=== PATIENT | female | born 1950 | race Caucasian/White ===

== ENCOUNTER 2017-12-08 08:12 | Outpatient (CLI) | payer MEDICARE, BC | END 2017-12-08 08:13 | disposition home or self-care (01) | LOC: BICMRI 08:12 | PROVIDERS: ATTEND Orthopaedic Surgery | DX: M25.531 Pain in right wrist (principal); M65.831 Other synovitis and tenosynovitis, right forearm; M77.9 Enthesopathy, unspecified ==

== ENCOUNTER 2017-12-21 09:57 | Outpatient (CLI) | payer MEDICARE, BC ==
[2017-12-21 11:50] LABS: Prothrombin Time 13.8 SEC (12.0-14.7)
[2017-12-21 12:00] LABS: #Basophils 0.1 thou/uL (0.0-0.2); #Eosinphils 0.1 thou/uL (0.0-0.7); #Lymphocytes 1.6 thou/uL (1.20-3.40); #Monocytes 0.6 thou/uL (0.11-0.59); #Neutrophils 4.9 thou/uL (1.40-6.50); %Basophils 0.8 % (0.0-1.0); %Eosinophils 1.1 % (0.0-10.0); %Lymphocytes 21.8 % (21.0-51.0); %Monocytes 7.9 % (0.0-10.0); %Neutrophils 68.4 % (42.0-75.0); Hemoglobin 12.2 g/dL (12.0-16.0); Mean Corpuscular HGB CONC 32.1 g/dL (32.0-36.0); Mean Corpuscular Hemoglobin 29.8 pg (27.0-31.0); Mean Corpuscular Volume 92.9 fl (81.0-99.0); Mean Platelet Volume 7.7 fL (7.4-10.4); Platelet Count 216 thou/uL (130-400); Red Blood Cell (RBC) Count 4.08 mill/uL (4.20-5.40); White Blood Cell (WBC) Count 7.2 thou/uL (4.8-10.8)
[2017-12-21 12:01] LABS: Anion Gap 12 mmol/L (10-20); BUN (Urea Nitrogen) 25 mg/dL (9.8-20.1); Calc. Creatinine Clearance 0 mL/min (70-130); Calcium 10.2 mg/dL (7.8-10.44); Carbon Dioxide 29 mmol/L (23-31); Chloride 103 mmol/L (98-107); Estimated GFR-MDRD 88; Glucose 98 mg/dL (80-115); Potassium 4.1 mmol/L (3.5-5.1); Sodium 140 mmol/L (136-145)
--- NOTE | 2017-12-21 13:25 | RAD ---
PA AND LATERAL CHEST X-RAY: 12/21/2017 HISTORY: Preoperative evaluation. COMPARISON: None available. FINDINGS: The cardiac silhouette and pulmonary vasculature are within normal limits. The lungs are clear. Deg enerative changes are seen in the spine. IMPRESSION: No acute cardiopulmonary process. POS: [facility]
--- NOTE | 2017-12-21 20:06 | EKG ---
Test Reason : Blood Pressure : / mmHG Vent. Rate : 055 BPM Atrial Rate : 055 BPM P-R Int : 160 ms QRS Dur : 076 ms QT Int : 462 ms P-R-T Axes : 045 040 -02 degrees QTc Int : 441 ms Sinus bradycardia Low voltage QRS Abnormal ECG When compared with ECG of 23-JAN-2017 07:07, No significant change was found Confirmed by RAMYA VELAZQUEZ, SDorys (4) on 12/21/2017 8:05:55 PM Referred By: JOSEPH Confirmed By:DR. Brit BUI MD
[2017-12-22 13:35] LABS: ANA Symphony (Qualitative) Negative (Negative); CCP IgG Antibody 0.8 EliAU/mL (<7 Negative); EliA RAS New Method **** NEW METHOD ****; Rheumatoid Factor IgA Antibody 2.8 IU/mL (<14 Negative); Rheumatoid Factor IgM Antibody Less than 0.5 IU/mL (<3.5 Negative); dsDNA IgG Antibody 1.1 IU/mL (<10 Negative)
[2017-12-23 11:22] LABS: Lyme IgG/IgM AB <0.91 ISR (0.00-0.90)
== END 2017-12-21 09:58 | disposition home or self-care (01) ==
LOC: LABBT 09:57
PROVIDERS: ATTEND Orthopaedic Surgery Hand Surgery
DX: Z01.818 Encounter for other preprocedural examination (principal); Z01.812 Encounter for preprocedural laboratory examination; M65.4 Radial styloid tenosynovitis [de Quervain]; G56.00 Carpal tunnel syndrome, unspecified upper limb
CPT/HCPCS: 71046; 80048; 83520; 85025; 85610; 85652; 86038; 86200; 86225; 86618; 93005; 93010

== ENCOUNTER 2018-01-12 05:51 | Day surgery (SDC) | payer MEDICARE, BC ==
[2017-12-21 10:19] VITALS: BMI 34.5
[2018-01-12] MEDS ORDERED: CEFAZOLIN/Water 2 GM/20 ML SYRINGE ONE (06:21)
[2018-01-12] MEDS ORDERED: Fentanyl 100 MCG/2 ML VIAL ONE (06:38)
[2018-01-12] MEDS ORDERED: Bacitracin Zinc Ointment 30 gm TUBE ONE (07:02)
[2018-01-12] MEDS ORDERED: Betamet Acet/Betamet Na Ph 30 MG/5 ML VIAL ONE (07:02)
[2018-01-12] MEDS ORDERED: Bupivacaine PF 0.5% 30 ML VIAL ONE (07:02)
[2018-01-12] MEDS ORDERED: Ondansetron HCl/PF 4 MG/2 ML Vial ONE ×2 (08:12→14:33)
[2018-01-12] MEDS ORDERED: Ketorolac Tromethamine 30 MG/ML VIAL ONE (09:07)
[2018-01-12] MEDS ORDERED: Dexamethasone 20 MG/5 ML VIAL ONE (14:33)
[2018-01-12] MEDS ORDERED: PROPOFOL 200 MG/20 ML VIAL ONE (14:33)
[2018-01-12] MEDS ORDERED: Lidocaine 1% PF 5 ML VIAL ONE (14:33)
[2018-01-12] MEDS ORDERED: ePHEDrine/0.9% NaCl/PF SYRINGE 50 mg/10 ml ONE (14:33)
--- NOTE | 2018-01-13 10:14 | OP ---
PREOPERATIVE DIAGNOSES: Right carpal tunnel syndrome and right de Quervain's. FINDINGS: 1. A very tight transverse carpal ligament, the median nerve actually pulled palmarly into the trans verse carpal ligament. 2. A very tight first dorsal compartment with 2 large tendons and no evidence of multistrand abducto r or extensor. PROCEDURE PERFORMED: 1. Carpal tunnel release, right. 2. A first dorsal compartment release/tenosynovectomy first dorsal compartment, right. TOURNIQUET TIME: Total 21 minutes. ANESTHESIA: Valarie, general LMA technique augmented by 10 mL of 0.5% Marcaine block, 5 mL [facility] STUDENT IN ROOM: [facility] and [facility]. COMPLICATIONS: None. DESCRIPTION OF PROCEDURE: After successful general LMA technique, the limb prepped and draped. The patient had time out done appropriately to include the fact that she had beta blossom on board. Then , we identified the sites and matched the consent, exsanguinated the limb after prep and drape and in flated tourniquet to 250 mmHg pressure. The ulnar incision zigzag over the palmar aspect of first do rsal compartment where she had some thickening. We also extended her incision over the carpal tunnel by 4 mm proximally. The first post-carpal tunnel carried through the skin, we used old incision exc ept extended it proximally and distally about 2 mm each. Carried through the skin, subcutaneous tiss ue, and then carefully dissected under magnification, because we were concerned the median never migh t be adherent to what was a re-grown transcarpal ligament. Then, once we released the initial ligame nt, we could see that the nerve was adherent and it was pulled ulnarly by approximately 5-6 mm, so we gently the nerve from the underlying portion of the transcarpal ligament, released the lig ament complete and visualized the nerve protecting all branches. There is no tenosynovitis. Then, t he removed portion of the transcarpal ligament comprising 3 mm wide and 1 cm long, that was adherent to the nerve to try to prevent recurrence. We then made the zigzag incision on first dorsal compartment, carried through skin and subcutaneous t issues, both branches of superficial radial nerve protected it. Then, we saw a small degenerative ga nglion being developed in the thickest part of the extensor retinaculum, released this here and then removed the 2-3 mm area of retinaculum on the dorsal side, protecting the volar side to prevent sublu xation. We then freed the entire tendon, a small amount of tenosynovitis resected, but did not see a separate extensor or abductor tendon division. Placed Celestone into each wound, 2.5 mL each by drip technique and then released the tourniquet. We waited 3 minutes to obtain hemostasis, and then closed each wound with interrupted 4-0 nylon in emily ress pattern. The patient left the operating room without evidence of anesthetic complication with b ulky dressing.
== END 2018-01-12 11:30 | disposition home or self-care (01) ==
LOC: SDC 05:51
PROVIDERS: ATTEND Orthopaedic Surgery Hand Surgery
PROC: 01N50ZZ Release Median Nerve, Open Approach (ICD-10-PCS; principal; 2018-01-12)
PROC: 0L870ZZ Division of Right Hand Tendon, Open Approach (ICD-10-PCS; 2018-01-12)
DX: G56.01 Carpal tunnel syndrome, right upper limb (principal); M77.8 Other enthesopathies, not elsewhere classified; M67.431 Ganglion, right wrist; M65.9 Synovitis and tenosynovitis, unspecified; Z88.5 Allergy status to narcotic agent; Z79.899 Other long term (current) drug therapy
CPT/HCPCS: 96374; J0702; J1100; J1885; J2001; J2405; J2704; J3010; S0020

== ENCOUNTER 2018-02-04 10:51 | Outpatient (CLI) | payer MEDICARE, BC ==
[2018-02-04 12:01] LABS: Mean Corpuscular HGB CONC 32.9 g/dL (32.0-36.0); Mean Corpuscular Hemoglobin 30.8 pg (27.0-31.0); Mean Corpuscular Volume 93.5 fl (81.0-99.0); Mean Platelet Volume 7.5 fL (7.4-10.4); Platelet Count 249 thou/uL (130-400); RBC Distribution Width 12.6 % (11.5-14.5); Red Blood Cell (RBC) Count 4.22 mill/uL (4.20-5.40)
[2018-02-04 12:09] LABS: PTT 26.4 SEC (22.9-36.1); Prothrombin Time 13.7 SEC (12.0-14.7)
[2018-02-04 12:23] LABS: ALT (SGPT) 14 U/L (8-55); AST (SGOT) 17 U/L (5-34); Albumin 4.2 g/dL (3.4-4.8); Alkaline Phosphatase 74 U/L (40-150); Anion Gap 7 mmol/L (10-20); BUN (Urea Nitrogen) 27 mg/dL (9.8-20.1); Bilirubin, Total 0.5 mg/dL (0.2-1.2); Calc. Creatinine Clearance 0 mL/min (70-130); Carbon Dioxide 28 mmol/L (23-31); Chloride 104 mmol/L (98-107); Estimated GFR-MDRD 87; Globulin 3.1 g/dL (2.4-3.5); Glucose 82 mg/dL (80-115); Potassium 4.1 mmol/L (3.5-5.1); Protein, Total 7.3 g/dL (6.0-8.3); Sodium 135 mmol/L (136-145)
--- NOTE | 2018-02-04 12:35 | RAD ---
CHEST PA AND LATERAL: History: 67-year-old female for preoperative evaluation. Comparison: 12-21-17 FINDINGS: Heart size is normal. The lungs are clear. No pneumonia, edema, or pleural effusion. IMPRESSION: No acute intrathoracic disease. Stable from prior study. POS: OFF
--- NOTE | 2018-02-05 07:23 | EKG ---
Test Reason : Blood Pressure : / mmHG Vent. Rate : 057 BPM Atrial Rate : 057 BPM P-R Int : 154 ms QRS Dur : 076 ms QT Int : 454 ms P-R-T Axes : 064 035 -02 degrees QTc Int : 441 ms Sinus bradycardia Nonspecific ST-T changes Poor anterior R wave progression When compared with ECG of 21-DEC-2017 10:15, No significant change was found Confirmed by DR. Musa GARCIA (3) on 02/05/2018 7:23:16 AM Referred By: YANET Confirmed By:DR. Musa GARCIA
== END 2018-02-04 10:52 | disposition home or self-care (01) ==
LOC: LABBT 10:51
PROVIDERS: ATTEND Internal Medicine Cardiovascular Disease
DX: Z01.818 Encounter for other preprocedural examination (principal); I35.0 Nonrheumatic aortic (valve) stenosis
CPT/HCPCS: 71046; 80053; 85027; 85610; 85730; 93005; 93010

== ENCOUNTER 2018-02-10 05:57 | Day surgery (SDC) | payer MEDICARE, BC ==
[2018-02-10] MEDS ORDERED: Heparin 10,000 UNITS/1 ML VIAL ONE (06:34)
[2018-02-10] MEDS ORDERED: Lidocaine 1% (PF) 30 ML VIAL ONE (06:35)
[2018-02-10] MEDS ORDERED: Fentanyl 100 MCG/2 ML VIAL ONE (07:05)
[2018-02-10] MEDS ORDERED: Midazolam HCl 2 mg/2 ml Vial ONE (07:05)
[2018-02-10] MEDS ORDERED: Protamine Sulfate 50 MG/5 ML VIAL ONE (07:33)
[2018-02-10] MEDS ORDERED: Sodium Chloride 0.9% 1,000 ML IV SCH (08:38)
[2018-02-10] MEDS ORDERED: traMADol HCl 50 MG TAB PO PRN (08:38)
[2018-02-10] MEDS ORDERED: Acetaminophen/Codeine 30-300mg Tablet PO PRN ×2 (08:38)
[2018-02-10] MEDS ORDERED: Nitroglycerin 0.4 MG TAB (25 Tab Bottle) SL PRN (08:38)
[2018-02-10] MEDS ORDERED: traMADol HCl 50 MG TAB ONE ×2 (08:41→08:44)
[2018-02-10] MEDS ORDERED: Iopamidol 370 76% 100 ML VIAL ONE (12:32)
[2018-02-10] MEDS ORDERED: Iopamidol 370 76% 50 ML VIAL FS ONE (12:32)
== END 2018-02-10 14:46 | disposition home or self-care (01) ==
LOC: CCL 05:57
PROVIDERS: ATTEND Internal Medicine Cardiovascular Disease
PROC: 4A023N8 Measurement of Cardiac Sampling and Pressure, Bilateral, Percutaneous Approach (ICD-10-PCS; principal; 2018-02-10)
PROC: B2111ZZ Fluoroscopy of Multiple Coronary Arteries using Low Osmolar Contrast (ICD-10-PCS; 2018-02-10)
PROC: B2151ZZ Fluoroscopy of Left Heart using Low Osmolar Contrast (ICD-10-PCS; 2018-02-10)
DX: I35.0 Nonrheumatic aortic (valve) stenosis (principal); I10 Essential (primary) hypertension; E78.00 Pure hypercholesterolemia, unspecified; E11.9 Type 2 diabetes mellitus without complications; E03.9 Hypothyroidism, unspecified; E66.01 Morbid (severe) obesity due to excess calories; Z68.33 Body mass index [BMI] 33.0-33.9, adult; Z79.899 Other long term (current) drug therapy; Z88.5 Allergy status to narcotic agent
CPT/HCPCS: 85347; 93460; 93567; C1769; J1644; J2001; J2250; J2720; J3010; J7050

== ENCOUNTER 2018-02-19 07:50 | Outpatient (CLI) | payer MEDICARE, BC ==
[2018-02-19 08:38] LABS: Estimated GFR-MDRD - POC Greater than 90
--- NOTE | 2018-02-19 10:21 | CT ---
CT ANGIOGRAM OF THE CHEST WITH IV CONTRAST AND 3D POSTPROCESSING: HISTORY: Aortic valve disorder. Preop study for heart valve replacement. The thoracic aorta measurements are as follows: Aortic annulus: 2.1 cm. Aortic sinus with Valsalva: 2.8 cm. Sinotubular junction: 2.4 cm. Mid ascending aorta: 2.5 cm. High ascending aorta: 2.5 cm. These above mentioned measurements are on the coronal reconstruction images. The ascending thoracic aorta measures 2.8 cm in AP dimension and the descending thoracic aorta 2.3 cm in AP dimension on the axial views at the level of the pulmonary arteries. No aneurysmal dilatation of the thoracic aorta is seen. No intimal flap is noted to suggest aortic d issection. No pleural or pericardial effusions are identified. The pulmonary arteries re well opacified without filling defects to assess pulmonary embolism. No pneumothoraces, lobar consolidation, or lung ambar s/pulmonary nodules are identified. There are degenerative changes in the spine. Upper abdominal tomograms demonstrate a 1 cm hyperenhancing focus in the left lobe of the liver, whic h is a nonspecific finding and may be a flash-filling hemangioma or hypervascular neoplasm (primary o r secondary). IMPRESSION: 1. No evidence of thoracic aortic aneurysm or dissection. 2. Liver lesion as above. POS: [facility]
[2018-02-19] MEDS ORDERED: Iopamidol 370 76% 100 ML VIAL ONE (11:23)
== END 2018-02-19 07:51 | disposition home or self-care (01) ==
LOC: CT 07:50
PROVIDERS: ATTEND Thoracic Surgery (Cardiothoracic Vascular Surgery)
DX: I35.9 Nonrheumatic aortic valve disorder, unspecified (principal); K76.9 Liver disease, unspecified
CPT/HCPCS: 71275; 82565

== ENCOUNTER 2018-03-22 08:53 | Outpatient (CLI) | payer MEDICARE, BC | END 2018-03-22 08:54 | disposition home or self-care (01) | LOC: LABBT 08:53 | PROVIDERS: ATTEND Thoracic Surgery (Cardiothoracic Vascular Surgery) | DX: Z01.812 Encounter for preprocedural laboratory examination (principal); I35.0 Nonrheumatic aortic (valve) stenosis | CPT/HCPCS: 80048; 85025; 85610; 85730; 86850; 86900; 86901 ==

== ENCOUNTER 2018-03-22 09:00 | Inpatient (IN) | payer MEDICARE, BC ==
[2018-03-22 10:04] LABS: #Eosinphils 0.1 thou/uL (0.0-0.7); #Lymphocytes 1.3 thou/uL (1.20-3.40); #Monocytes 0.5 thou/uL (0.11-0.59); #Neutrophils 4.1 thou/uL (1.40-6.50); %Basophils 0.5 % (0.0-1.0); %Eosinophils 1.3 % (0.0-10.0); %Lymphocytes 21.1 % (21.0-51.0); %Monocytes 8.3 % (0.0-10.0); %Neutrophils 68.8 % (42.0-75.0); Hemoglobin 12.6 g/dL (12.0-16.0); Mean Corpuscular HGB CONC 34.6 g/dL (32.0-36.0); Mean Corpuscular Hemoglobin 32.2 pg (27.0-31.0); Mean Platelet Volume 7.6 fL (7.4-10.4); Platelet Count 194 thou/uL (130-400); RBC Distribution Width 12.5 % (11.5-14.5)
[2018-03-22 10:11] LABS: INR-International Normal Ratio 1.1; PTT 27.8 SEC (22.9-36.1)
[2018-03-22 10:30] LABS: Anion Gap 11 mmol/L (10-20); BUN (Urea Nitrogen) 19 mg/dL (9.8-20.1); Calc. Creatinine Clearance 0 mL/min (70-130); Calcium 9.9 mg/dL (7.8-10.44); Carbon Dioxide 29 mmol/L (23-31); Chloride 102 mmol/L (98-107); Estimated GFR-MDRD 84; Glucose 104 mg/dL (80-115); Potassium 4.2 mmol/L (3.5-5.1); Sodium 138 mmol/L (136-145)
--- NOTE | 2018-03-22 15:09 | CON ---
DATE OF CONSULTATION: 03/22/2018. HISTORY OF PRESENT ILLNESS: Ms. Brown is a 67-year-old woman with progressive shortness of breath w ith known aortic stenosis. Echo in 02/2018 shows an ejection fraction of 55%-60%. Peak to peak grad ient is 59 mm with a mean of 34. Catheterization was negative for any coronary artery disease. PAST MEDICAL HISTORY: 1. Aortic stenosis. 2. Hypertension. 3. Type 2 diabetes mellitus. 4. Hypercholesterolemia. 5. Obesity. 6. Hypothyroidism. PAST SURGICAL HISTORY: Carpal tunnel release. ALLERGIES: CODEINE. CURRENT MEDICATIONS: 1. Crestor 10 mg at bedtime. 2. Lisinopril/HCTZ 20/12.5 daily. 3. Hydralazine 25 mg daily. 4. Metoprolol ER 200 mg daily. 5. Levothyroxine 50 mcg daily. 6. Fluoxetine 20 mg daily. 7. Aleve 220 mg p.r.n. SOCIAL HISTORY: She does not use tobacco or alcohol. PHYSICAL EXAMINATION: GENERAL: This is a well-adjusted woman resting without chest pain or shortness of breath at rest. VITAL SIGNS: Height is 5 feet 3 inches, weight 195 pounds. Heart rate is 68, blood pressure is 142/ 60. HEENT: Sclerae nonicteric. Pupils equal, round bilaterally. NECK: Supple. She has bilateral transmitted carotid bruits. HEART: Rhythm is regular. There is a 3/6 systolic ejection murmur heard throughout the precordium. ABDOMEN: Soft and nontender. EXTREMITIES: No cyanosis, clubbing or edema. VASCULAR: She has palpable carotid, radial, femoral, and dorsalis pedis pulses bilaterally. VENOUS: There are no venous varicosities. PSYCHIATRIC: The patient is awake, alert, and oriented to person, place, and time. IMAGING: I have reviewed the CT scan of her chest and she appears to be an adequate patient for mini torie invasive aortic valve replacement. ASSESSMENT AND PLAN: Severe aortic stenosis with shortness of breath. We discussed aortic valve rep lacement and she is agreeable. She understands it. Attempts will be made to perform this through a minimally invasive right anterior thoracotomy and if not possible, we will convert to an open surgery . Risks, benefits, and options have been outlined.
[2018-03-23] MEDS ORDERED: Fentanyl 100 MCG/2 ML VIAL ONE (06:00)
[2018-03-23] MEDS ORDERED: Vecuronium 10 MG VIAL ONE ×2 (06:01→13:29)
[2018-03-23] MEDS ORDERED: Midazolam HCl 5 mg/5 ml Vial ONE (06:01)
[2018-03-23] MEDS ORDERED: Dexmedetomidine 200 MCG/2 ML VIAL ONE (06:01)
[2018-03-23] MEDS ORDERED: Heparin 10,000 UNITS/1 ML VIAL 30,000 UNITS in Sodium Chloride 0.9% 1,000 ML FS SCH (06:15)
[2018-03-23] MEDS ORDERED: CEFAZOLIN/Water 2 GM/20 ML SYRINGE ONE (06:23)
[2018-03-23] MEDS ORDERED: Vancomycin HCl 1.5 GM in Sodium Chloride 0.9% 250 ML 300 ML IVPB SCH (06:30)
[2018-03-23] MEDS ORDERED: Albumin 5% 500 ML ONE ×2 (06:52→10:18)
[2018-03-23] MEDS ORDERED: Iothalamate Meglumine 60% 50 ML VIAL FS ONE (07:23)
[2018-03-23] MEDS ORDERED: PHENYLEPHRINE-NS 100 MCG/ML 10 ML SYRINGE ONE ×2 (09:42→13:29)
[2018-03-23] MEDS ORDERED: Insulin Regular 300 UNITS/3 ML VIAL ONE (10:15)
[2018-03-23] MEDS ORDERED: Bupivacaine HCl 0.5%/Epinephrine 1:200,000/PF 30 ml Vial ONE (11:48)
[2018-03-23] MEDS ORDERED: Hetastarch 6% 500 ML 500 ML IVPB PRN (12:22)
[2018-03-23] MEDS ORDERED: hydrALAZINE 20 MG/ML VIAL SLOW IVP PRN (12:22)
[2018-03-23] MEDS ORDERED: Phenylephrine 10 MG/NS 250 ML 250 ML IVPB PRN (12:22)
[2018-03-23] MEDS ORDERED: Fentanyl 100 MCG/2 ML VIAL SLOW IVP PRN (12:22)
[2018-03-23] MEDS ORDERED: Nitroglycerin 50 MG/250 ML BOT 250 ML IVPB PRN (12:22)
[2018-03-23] MEDS ORDERED: Mag-Al 1200 mg/1200 mg/30 ML UDCUP PO PRN (12:22)
[2018-03-23] MEDS ORDERED: Guaifenesin DM 100-10/5 ML UDCUP PO PRN (12:22)
[2018-03-23] MEDS ORDERED: Magnesium 2 GM/NS 0.9% 100 ML 2 GM in Premix Bag 1 BAG IVPB SCH (12:22)
[2018-03-23] MEDS ORDERED: Bisacodyl 5 MG TAB PO PRN (12:22)
[2018-03-23] MEDS ORDERED: Bisacodyl 10 MG SUPP PR PRN (12:22)
[2018-03-23] MEDS ORDERED: DOPamine 400 MG/D5W 250 ML 250 ML IVPB PRN (12:22)
[2018-03-23] MEDS ORDERED: Acetaminophen 325 MG TAB PO PRN (12:22)
[2018-03-23] MEDS ORDERED: traMADol HCl 50 MG TAB PO PRN ×2 (12:22)
[2018-03-23] MEDS ORDERED: Promethazine HCl 25 MG/ML VIAL IM PRN (12:22)
--- NOTE | 2018-03-23 12:41 | OP ---
DATE OF PROCEDURE: 03/23/2018 PREOPERATIVE DIAGNOSIS: Aortic stenosis. POSTOPERATIVE DIAGNOSIS: Aortic stenosis. PROCEDURE: Aortic valve replacement utilizing a minimally invasive approach with a #19 Intuity bioprosthetic valve. SURGEON: Dr. Forest Escamilla, Dr. Denny Byrd, Dr. Reyes Ramirez. DRAINS: A 24-Bengali chest tube x1. PUMP TIME: 88 min CROSS CLAMP TIME: 62 min CHILD CAREGIVER : Tiesha Zhao DRIPS: None. TRANSFUSIONS: None. ANESTHESIA: General endotracheal -- Dr. Radha Cosme. DESCRIPTION OF PROCEDURE: After consent was obtained, the patient was brought to the operating room, placed in supine position on the operating room table. Appropriate anesthetic monitor was placed and general endotracheal anesthesia induced. Chest, abdomen, and legs were prepped and draped in usual sterile fashion. The left groin was exposed through a transverse incision for cannulation of the femoral artery and vein. 4-0 Prolene pursestring sutures were placed in the common femoral artery and vein for cannulation. A right anterior thoracotomy was performed for approximately 5 cm length overlying the second innerspace. The pectoralis muscle fibers were split. The second interspace was entered. The right internal mammary artery and vein were divided between clips. The third rib was divided at its costal junction. The Leonel retractor was placed and opened. The minimally invasive retractor was then placed. A 24 fr Trace drain was then placed through the right anterior chest wall for CO2 infusion which was begun. Pericardium was opened vertically exposing the aorta. At this point, the patient was systemically heparinized. Arterial and venous cannulation was performed through the femoral artery and vein utilizing fluoroscopic guidance. After the cannulas were positioned retrograde prime was performed. The patient was placed on cardiopulmonary bypass. A good right-sided cardiac decompression was obtained. Through the right superior pulmonary vein, a sump drain was placed. This was secured with a pursestring of 4-0 Prolene. Aortic cross- clamp was applied and antegrade sanguinous cardioplegic arrest obtained. One liter of antegrade cold Delnido cardioplegia was given. A good arrest was obtained. A transverse aortotomy was performed and extended down towards the noncoronary cusp. Valve was inspected. The aortic valve was a three leaflet valve that was heavily calcified. Leaflets were debrided. Annulus was decalcified. Valve measured to be a #19 Intuity. Sutures were placed at the aidee of each cusp. Valve was washed, brought to the operative field and sutures were passed through the sewing ring. The valve was seated and secured with Rumel tourniquets. The balloon was inflated 4.5 mmHg for 10 seconds. Balloon was deflated and one inflation device removed. Core knots were used to secure the valve sutures in place. Valve was inspected. It was seated nicely within the annulus. There was no visible cuff above the valve and the aorta. All three leaflets were freely mobile. The aortotomy was then closed in a dual layer running fashion. De-airing maneuvers were performed both through the left ventricular sump drain and the root vent. BioGlue was placed on the suture line. Right ventricular pacing wire was placed, brought to the skin along with the chest tube. Aortic cross- clamp was removed with the patient in Trendelenburg position. Hemostasis was vigorously ensured. After adequate de-airing by ERAN, the root vent was removed and its pursestring sutures secured. The aortic sump drain was removed and its pursestring sutures secured in the superior pulmonary vein. The patient was warmed and weaned from cardiopulmonary bypass. After resumption of sinus rhythm, good hemodynamics, and temperature greater than 36.5, bypass was discontinued. Protamine was administered. Decannulation was performed. Both the artery and the vein were repaired primarily with a two layer running 5-0 Prolene suture. After protamine had been instituted and adequate hemostasis obtained, the groin wound was copiously irrigated, closed in layers. Dermabond applied to the skin. The third rib was reapproximated with a single 0 Vicryl suture. The pectoralis was reapproximated with running 0 Vicryl suture. Wound was irrigated and closed in multiple layers. Needle, sponge, and instrument counts were all reported correct at the end of the procedure. The patient tolerated the procedure well and was transferred to the intensive care unit in stable condition. JUAN
[2018-03-23 12:56] LABS: #Eosinphils 0.1 thou/uL (0.0-0.7); #Lymphocytes 1.1 thou/uL (1.20-3.40); #Monocytes 0.7 thou/uL (0.11-0.59); #Neutrophils 8.9 thou/uL (1.40-6.50); %Basophils 0.2 % (0.0-1.0); %Eosinophils 0.5 % (0.0-10.0); %Lymphocytes 10.1 % (21.0-51.0); %Monocytes 6.7 % (0.0-10.0); %Neutrophils 82.5 % (42.0-75.0); Mean Corpuscular HGB CONC 34.1 g/dL (32.0-36.0); Mean Corpuscular Hemoglobin 31.9 pg (27.0-31.0); Mean Corpuscular Volume 93.4 fl (81.0-99.0); Mean Platelet Volume 7.4 fL (7.4-10.4); Platelet Count 102 thou/uL (130-400); RBC Distribution Width 12.5 % (11.5-14.5); Red Blood Cell (RBC) Count 3.14 mill/uL (4.20-5.40); White Blood Cell (WBC) Count 10.8 thou/uL (4.8-10.8)
[2018-03-23 13:01] LABS: INR-International Normal Ratio 1.5; PTT 38.1 SEC (22.9-36.1); Prothrombin Time 18.8 SEC (12.0-14.7)
[2018-03-23] MEDS: D5 1/2 NS w/20 mEq KCL 1,000 ML IV SCH (13:02)
[2018-03-23] MEDS ORDERED: Dextrose 5% in Water 1,000 ML IV PRN (13:04)
[2018-03-23] MEDS ORDERED: Dextrose 50% Abboject 50 ML SYRINGE SLOW IVP PRN (13:04)
[2018-03-23 13:20] LABS: Anion Gap 11 mmol/L (10-20); BUN (Urea Nitrogen) 12 mg/dL (9.8-20.1); Calc. Creatinine Clearance 137 mL/min (70-130); Carbon Dioxide 21 mmol/L (23-31); Chloride 112 mmol/L (98-107); Estimated GFR-MDRD Greater than 90; Glucose 119 mg/dL (80-115); Potassium 3.8 mmol/L (3.5-5.1); Sodium 140 mmol/L (136-145)
[2018-03-23] MEDS: Insulin Regular 300 UNITS/3 ML VIAL SC PRN ×4 (13:23→23:30)
[2018-03-23 13:27] LABS: Base Excess (BEa) -1.3 mEq/L (-2.0 to +3.0); CO2 Tension 38.1 mmHg (35.0-45.0); Hemoglobin (Hb) 10.7 g/dL (12.0-16.0); O2 Tension (PaO2) 77.3 mmHg (> 80.0)
[2018-03-23 13:28] LABS: ALV-art Gradient 231.575 (0-20); Calcium, Ionized 1.1 mmol/L (1.12-1.30); Puncture Site ALINE
[2018-03-23] MEDS ORDERED: Sodium Bicarb 50 MEQ/50 ML VIAL ONE (13:29)
[2018-03-23] MEDS ORDERED: Calcium Chloride 1 GM/10 ML Abboject SYRINGE ONE (13:29)
[2018-03-23] MEDS ORDERED: Nitroglycerin 50 MG/250 ML BOT ONE (13:29)
[2018-03-23] MEDS ORDERED: ePHEDrine/0.9% NaCl/PF SYRINGE 50 mg/10 ml ONE (13:29)
[2018-03-23] MEDS ORDERED: Heparin 30,000 units/30 ml VIAL ONE (13:29)
[2018-03-23] MEDS ORDERED: Thrombin 5000 UNITS/5 ML VIAL ONE (13:29)
[2018-03-23] MEDS ORDERED: Mannitol 12.5 GM/50 ML ONE (13:29)
[2018-03-23] MEDS ORDERED: Protamine Sulfate 250 MG/25 ML VIAL ONE (13:29)
[2018-03-23] MEDS ORDERED: Potassium Chlo 10 mEq/5 ml Syr ONE (13:29)
[2018-03-23] MEDS ORDERED: Heparin 5,000 UNITS/ML VIAL ONE (13:29)
[2018-03-23] MEDS ORDERED: Magnesium 5 GM/10 ML VIAL ONE (13:29)
[2018-03-23] MEDS ORDERED: PROPOFOL 200 MG/20 ML VIAL ONE (13:29)
[2018-03-23] MEDS ORDERED: Lidocaine 2% PF 100 mg/5 ml Syringe ONE (13:29)
[2018-03-23] MEDS ORDERED: Norepinephrine 4 MG/4 ML VIAL ONE (13:29)
--- NOTE | 2018-03-23 13:49 | RAD ---
PORTABLE AP CHEST RADIOGRAPH: Date: 03-23-18 History: Post open heart surgery. Comparison: 12-21-17 FINDINGS: A endotracheal tube is noted in place, the tip of which is difficult to visualize, but probably overl ies the level of the kelly. Right internal jugular vein central venous catheter is noted in place wi th the tip overlying the most proximal SVC. Nasogastric tube is noted in place with tip overlying the gastric fundus. Radiopaque catheter overlies the right chest. There have been interval post-surgical changes related to cardiac valve replacement. There are thin metallic densities overlying the right upper quadrant. There is mild bibasilar atelectasis. Cardiac silhouette and pulmonary vasculature are within normal limits. IMPRESSION: 1. Interval post-surgical changes related to cardiac valve replacement. 2. Lines and tubes in place as described above. The tip of the endotracheal tube is not well seen, bu t probably overlies the level of the kelly. POS: [facility]
[2018-03-23] MEDS: Potassium Chloride 20 MEQ/100 ML PREMIX BAG IVPB PRN (14:10)
[2018-03-23 14:21] VITALS: BMI 34.7
[2018-03-23] MEDS: Fentanyl 100 MCG/2 ML VIAL SLOW IVP PRN ×2 (15:37→18:29)
[2018-03-23] MEDS: CEFAZOLIN/Water 2 GM/20 ML SYRINGE SLOW IVP SCH ×2 (16:17→22:24)
[2018-03-23 16:48] LABS: Actual Bicarbonate (HCO3a) 22.1 mEq/L (22-28); CO2 Tension 39.9 mmHg (35.0-45.0); O2 Tension (PaO2) 137.2 mmHg (> 80.0); pH, Arterial 7.36 (7.35-7.45)
[2018-03-23] MEDS: Ketorolac Tromethamine 30 MG/ML VIAL IVP SCH ×2 (16:48→23:08)
[2018-03-23 16:49] LABS: ALV-art Gradient 98.125 (0-20); Base Excess (BEa) -3.1 mEq/L (-2.0 to +3.0); Calcium, Ionized 1.1 mmol/L (1.12-1.30); Puncture Site ALINE
[2018-03-23 18:28] LABS: Hemoglobin 10.3 g/dL (12.0-16.0)
[2018-03-23 18:45] LABS: Potassium 4.1 mmol/L (3.5-5.1)
[2018-03-23] MEDS: Ondansetron HCl/PF 4 MG/2 ML Vial IVP PRN (19:52)
[2018-03-23] MEDS: Vancomycin HCl 1.5 GM in Premix Bag 1 BAG IVPB SCH (20:18)
[2018-03-23] MEDS ORDERED: Famotidine/PF 20 mg/2ml Vial SLOW IVP SCH (21:00)
[2018-03-24 03:33] LABS: #Lymphocytes 0.6 thou/uL (1.20-3.40); #Monocytes 0.7 thou/uL (0.11-0.59); #Neutrophils 8.6 thou/uL (1.40-6.50); %Eosinophils 0.1 % (0.0-10.0); %Lymphocytes 6.2 % (21.0-51.0); %Monocytes 6.8 % (0.0-10.0); %Neutrophils 86.9 % (42.0-75.0); Hemoglobin 8.6 g/dL (12.0-16.0); Mean Corpuscular HGB CONC 34.7 g/dL (32.0-36.0); Mean Corpuscular Hemoglobin 32.2 pg (27.0-31.0); Mean Corpuscular Volume 92.9 fL (78.0-98.0); Mean Platelet Volume 7.3 fL (7.4-10.4); Platelet Count 92 thou/uL (130-400); RBC Distribution Width 12.5 % (11.5-14.5); Red Blood Cell (RBC) Count 2.66 mill/uL (4.20-5.40); White Blood Cell (WBC) Count 9.9 thou/uL (4.8-10.8)
[2018-03-24 03:54] LABS: Anion Gap 9 mmol/L (10-20); BUN (Urea Nitrogen) 16 mg/dL (9.8-20.1); Calc. Creatinine Clearance 129 mL/min (70-130); Calcium 7.9 mg/dL (7.8-10.44); Carbon Dioxide 24 mmol/L (23-31); Chloride 110 mmol/L (98-107); Estimated GFR-MDRD Greater than 90; Glucose 137 mg/dL (80-115); Sodium 139 mmol/L (136-145)
[2018-03-24] MEDS: Insulin Regular 300 UNITS/3 ML VIAL SC PRN (04:01)
[2018-03-24] MEDS: Potassium Chloride 20 MEQ/100 ML PREMIX BAG IVPB PRN (04:01)
[2018-03-24] MEDS: Ketorolac Tromethamine 30 MG/ML VIAL IVP SCH ×4 (05:03→22:20)
[2018-03-24] MEDS: CEFAZOLIN/Water 2 GM/20 ML SYRINGE SLOW IVP SCH (06:23)
[2018-03-24] MEDS: Ondansetron HCl/PF 4 MG/2 ML Vial IVP PRN (08:12)
[2018-03-24] MEDS: Magnesium 2 GM/NS 0.9% 100 ML 2 GM in Premix Bag 1 BAG IVPB SCH (08:12)
[2018-03-24] MEDS ORDERED: Aspirin 325 MG TAB PO SCH (09:00)
[2018-03-24] MEDS ORDERED: Vancomycin HCl 1.5 GM in Sodium Chloride 0.9% 250 ML 300 ML IVPB SCH (09:15)
[2018-03-24] MEDS: Vancomycin HCl 1.5 GM in Premix Bag 1 BAG IVPB SCH (09:16)
--- NOTE | 2018-03-24 09:32 | RAD ---
SINGLE VIEW OF THE CHEST: Comparison: 03-23-18 History: Status post open heart surgery. FINDINGS: Single view of the chest shows a normal sized cardiomediastinal silhouette. The endotracheal tube and NG tube have been removed. A stent is seen in the region of the aortic valve. There is no evidence o f consolidation or mass. There may be a small left pleural effusion. IMPRESSION: Stable exam status post extubation. POS: [facility]
[2018-03-24] MEDS: D5 1/2 NS w/20 mEq KCL 1,000 ML IV SCH ×2 (12:43→17:14)
[2018-03-24] MEDS: Rosuvastatin 10 MG TAB PO SCH (22:17)
[2018-03-25] MEDS: Levothyroxine Sodium 50 MCG TAB PO SCH (05:13)
[2018-03-25] MEDS: Ketorolac Tromethamine 30 MG/ML VIAL IVP SCH ×3 (05:13→16:55)
[2018-03-25 05:31] LABS: #Lymphocytes 0.7 thou/uL (1.20-3.40); #Monocytes 0.7 thou/uL (0.11-0.59); #Neutrophils 6.6 thou/uL (1.40-6.50); %Basophils 0.2 % (0.0-1.0); %Eosinophils 0.3 % (0.0-10.0); %Lymphocytes 8.6 % (21.0-51.0); %Monocytes 8.8 % (0.0-10.0); %Neutrophils 82.1 % (42.0-75.0); Hemoglobin 7.7 g/dL (12.0-16.0); Mean Corpuscular HGB CONC 33.2 g/dL (32.0-36.0); Mean Corpuscular Hemoglobin 32.2 pg (27.0-31.0); Mean Corpuscular Volume 97.1 fL (78.0-98.0); Mean Platelet Volume 7.9 fL (7.4-10.4); Platelet Count 79 thou/uL (130-400); RBC Distribution Width 12.6 % (11.5-14.5); Red Blood Cell (RBC) Count 2.38 mill/uL (4.20-5.40)
[2018-03-25 05:35] LABS: Anion Gap 10 mmol/L (10-20); BUN (Urea Nitrogen) 23 mg/dL (9.8-20.1); Calc. Creatinine Clearance 106 mL/min (70-130); Calcium 8.4 mg/dL (7.8-10.44); Carbon Dioxide 23 mmol/L (23-31); Chloride 107 mmol/L (98-107); Estimated GFR-MDRD 74; Glucose 135 mg/dL (80-115); Potassium 4.2 mmol/L (3.5-5.1); Sodium 136 mmol/L (136-145)
[2018-03-25] MEDS ORDERED: Zolpidem Tartrate 5 MG TAB PO PRN (07:11)
[2018-03-25] MEDS ORDERED: Mineral Oil ENEMA PR PRN (07:11)
[2018-03-25] MEDS ORDERED: Mag-Al 1200 mg/1200 mg/30 ML UDCUP PO PRN (07:11)
[2018-03-25] MEDS ORDERED: Milk Of Magnesia 30 ML UDCUP PO PRN (07:11)
[2018-03-25] MEDS ORDERED: Artificial Tears 18 DROP/0.9 ML EA EYE PRN (07:11)
[2018-03-25] MEDS ORDERED: diphenhydrAMINE 25 MG CAP PO PRN (07:11)
[2018-03-25] MEDS ORDERED: Bisacodyl 10 MG SUPP PR PRN (07:11)
[2018-03-25] MEDS: Aspirin 325 mg Enteric Coated Tablet PO SCH (08:55)
[2018-03-25] MEDS: Magnesium 2 GM/NS 0.9% 100 ML 2 GM in Premix Bag 1 BAG IVPB SCH (08:55)
[2018-03-25] MEDS: Furosemide 20 MG TAB PO SCH (08:55)
[2018-03-25] MEDS: FLUoxetine HCl 10 MG CAP PO SCH (08:58)
[2018-03-25] MEDS ORDERED: Levothyroxine Sodium 50 MCG TAB PO SCH (09:00)
--- NOTE | 2018-03-25 09:53 | RAD ---
CHEST 1 VIEW: Date: 03/25/18 HISTORY: Open heart surgery. COMPARISON: 03/24/18. FINDINGS: There is mild blunting bilateral costophrenic sulci. No pneumothorax. Heart valve similar. Cardiac si lhouette and mediastinal contours are unchanged. IMPRESSION: Similar examination of the chest. POS: [facility]
[2018-03-25] MEDS: Guaifenesin DM 100-10/5 ML UDCUP PO PRN ×2 (12:25→16:56)
[2018-03-25] MEDS: Bisacodyl 5 MG TAB PO PRN (20:18)
[2018-03-25] MEDS: Rosuvastatin 10 MG TAB PO SCH (20:19)
[2018-03-25] MEDS ORDERED: Rosuvastatin 10 MG TAB PO SCH (21:00)
[2018-03-26] MEDS: Ketorolac Tromethamine 30 MG/ML VIAL IVP SCH ×3 (00:11→05:38)
[2018-03-26 05:25] LABS: #Eosinphils 0.1 thou/uL (0.0-0.7); #Lymphocytes 1.1 thou/uL (1.20-3.40); #Monocytes 0.6 thou/uL (0.11-0.59); #Neutrophils 5.6 thou/uL (1.40-6.50); %Basophils 0.2 % (0.0-1.0); %Eosinophils 0.8 % (0.0-10.0); %Lymphocytes 14.6 % (21.0-51.0); %Monocytes 8.7 % (0.0-10.0); %Neutrophils 75.7 % (42.0-75.0); Hemoglobin 7.1 g/dL (12.0-16.0); Mean Corpuscular HGB CONC 33.1 g/dL (32.0-36.0); Mean Corpuscular Hemoglobin 31.9 pg (27.0-31.0); Mean Corpuscular Volume 96.3 fL (78.0-98.0); Mean Platelet Volume 7.8 fL (7.4-10.4); Platelet Count 83 thou/uL (130-400); RBC Distribution Width 12.5 % (11.5-14.5); Red Blood Cell (RBC) Count 2.21 mill/uL (4.20-5.40); White Blood Cell (WBC) Count 7.3 thou/uL (4.8-10.8)
[2018-03-26 05:27] LABS: Anion Gap 10 mmol/L (10-20); BUN (Urea Nitrogen) 25 mg/dL (9.8-20.1); Calc. Creatinine Clearance 110 mL/min (70-130); Calcium 8.4 mg/dL (7.8-10.44); Carbon Dioxide 23 mmol/L (23-31); Chloride 106 mmol/L (98-107); Estimated GFR-MDRD 78; Glucose 118 mg/dL (80-115); Potassium 4.5 mmol/L (3.5-5.1); Sodium 134 mmol/L (136-145)
[2018-03-26] MEDS: Levothyroxine Sodium 50 MCG TAB PO SCH (05:39)
[2018-03-26] MEDS ORDERED: Furosemide 40 MG/4 ML VIAL SLOW IVP SCH (07:15)
[2018-03-26] MEDS: FLUoxetine HCl 10 MG CAP PO SCH (08:02)
[2018-03-26] MEDS: Aspirin 325 mg Enteric Coated Tablet PO SCH (08:02)
[2018-03-26] MEDS: Furosemide 20 MG TAB PO SCH (08:02)
[2018-03-26] MEDS: Bisacodyl 5 MG TAB PO PRN (21:09)
[2018-03-26] MEDS: Rosuvastatin 10 MG TAB PO SCH (21:09)
[2018-03-27 05:24] LABS: #Eosinphils 0.2 thou/uL (0.0-0.7); #Lymphocytes 0.8 thou/uL (1.20-3.40); #Monocytes 0.7 thou/uL (0.11-0.59); %Basophils 0.1 % (0.0-1.0); %Eosinophils 2.6 % (0.0-10.0); %Lymphocytes 12.2 % (21.0-51.0); %Monocytes 10.2 % (0.0-10.0); %Neutrophils 74.8 % (42.0-75.0); Hemoglobin 10.2 g/dL (12.0-16.0); Mean Corpuscular HGB CONC 34.2 g/dL (32.0-36.0); Mean Corpuscular Hemoglobin 31.9 pg (27.0-31.0); Mean Corpuscular Volume 93.5 fL (78.0-98.0); Mean Platelet Volume 7.4 fL (7.4-10.4); Platelet Count 114 thou/uL (130-400); RBC Distribution Width 13.2 % (11.5-14.5); Red Blood Cell (RBC) Count 3.19 mill/uL (4.20-5.40); White Blood Cell (WBC) Count 6.7 thou/uL (4.8-10.8)
[2018-03-27] MEDS: Levothyroxine Sodium 50 MCG TAB PO SCH (05:32)
[2018-03-27 05:48] LABS: Anion Gap 12 mmol/L (10-20); BUN (Urea Nitrogen) 17 mg/dL (9.8-20.1); Calc. Creatinine Clearance 129 mL/min (70-130); Calcium 8.6 mg/dL (7.8-10.44); Carbon Dioxide 22 mmol/L (23-31); Chloride 106 mmol/L (98-107); Estimated GFR-MDRD Greater than 90; Glucose 114 mg/dL (80-115); Potassium 4.2 mmol/L (3.5-5.1); Sodium 136 mmol/L (136-145)
[2018-03-27] MEDS: FLUoxetine HCl 10 MG CAP PO SCH (08:46)
[2018-03-27] MEDS: Furosemide 20 MG TAB PO SCH (08:46)
[2018-03-27] MEDS: Aspirin 325 mg Enteric Coated Tablet PO SCH (08:46)
[2018-03-27 12:06] VITALS: TEMP 99.6
[2018-03-27 12:15] VITALS: BP 190/77
--- NOTE | 2018-03-27 20:28 | DIS ---
DATE OF ADMISSION: 03/23/2018 DATE OF DISCHARGE: 03/27/2018 PRINCIPAL DIAGNOSIS: Aortic stenosis. PROCEDURE PERFORMED: A 19 mm Intuity aortic valve replacement with minimally invasive approach. HISTORY OF PRESENT ILLNESS AND HOSPITAL COURSE: The patient is a 67-year-old woman with known aortic stenosis who has begun having progressive shortness of breath. Cardiac catheterization showed absen ce of any significant coronary disease. She underwent replacement of her aortic valve with 19 mm Int uity valve using the left groin for femoral cannulation for cardiopulmonary bypass. The right second interspace incision for access to the aortic valve. She did well postoperatively. Her hemoglobin d id drift down and she was transfused blood for hemoglobin of 7.1 while she voiced a lack of symptoms, it was noted that her blood pressure is running lower than normal after transfusion. She was able t o appreciate that she felt stronger and had better exercise tolerance. She is now being discharged h [facility] on postoperative day #4, doing well.
== END 2018-03-27 12:52 | disposition home or self-care (01) | DRG 221 ==
LOC: SURG A 03-23 05:34 → CCU 03-23 12:49 → 2NO 03-25 23:56
PROVIDERS: ADMIT Thoracic Surgery (Cardiothoracic Vascular Surgery); ATTEND Thoracic Surgery (Cardiothoracic Vascular Surgery)
PROC: 02RF08Z Replacement of Aortic Valve with Zooplastic Tissue, Open Approach (ICD-10-PCS; principal; 2018-03-23)
PROC: 5A1221Z Performance of Cardiac Output, Continuous (ICD-10-PCS; 2018-03-23)
PROC: 30233N1 Transfusion of Nonautologous Red Blood Cells into Peripheral Vein, Percutaneous Approach (ICD-10-PCS; 2018-03-26)
DX: I35.0 Nonrheumatic aortic (valve) stenosis (principal); I35.9 Nonrheumatic aortic valve disorder, unspecified; I10 Essential (primary) hypertension; E11.9 Type 2 diabetes mellitus without complications; E66.9 Obesity, unspecified; E03.9 Hypothyroidism, unspecified; E78.2 Mixed hyperlipidemia; Z68.35 Body mass index [BMI] 35.0-35.9, adult
CPT/HCPCS: 36415; 36416; 36430; 71045; 76001; 80048; 82805; 85025; 85610; 85730; 86850; 86900; 86901; 93005; 93010; 93798; 94002; 94150; A4216; J0360; J0670; J1642; J1644; J1815; J1885; J1940; J2001; J2150; J2250; J2270; J2405; J2704; J2720; J3010; J3370; J3475; J3480; J7050; P9016; P9045; Q9961; S0028

== ENCOUNTER 2018-04-11 05:54 | Inpatient (IN) | payer MEDICARE, BC ==
[2018-04-11 06:48] LABS: #Eosinphils 0.2 thou/uL (0.0-0.7); #Lymphocytes 0.9 thou/uL (1.20-3.40); #Monocytes 0.8 thou/uL (0.11-0.59); %Basophils 0.4 % (0.0-1.0); %Eosinophils 1.7 % (0.0-10.0); %Lymphocytes 8.5 % (21.0-51.0); %Neutrophils 82.4 % (42.0-75.0); Hemoglobin 12.3 g/dL (12.0-16.0); Mean Corpuscular HGB CONC 34.3 g/dL (32.0-36.0); Mean Corpuscular Hemoglobin 31.2 pg (27.0-31.0); Mean Corpuscular Volume 91.2 fL (78.0-98.0); Mean Platelet Volume 6.3 fL (7.4-10.4); Platelet Count 357 thou/uL (130-400); RBC Distribution Width 12.4 % (11.5-14.5); Red Blood Cell (RBC) Count 3.95 mill/uL (4.20-5.40); White Blood Cell (WBC) Count 10.9 thou/uL (4.8-10.8)
[2018-04-11] MEDS ORDERED: Diltiazem 125 MG/25 ML ONE (06:49)
[2018-04-11 06:56] LABS: PTT 28.5 SEC (22.9-36.1)
[2018-04-11 06:58] LABS: ALT (SGPT) 9 U/L (8-55); AST (SGOT) 15 U/L (5-34); Albumin 3.6 g/dL (3.4-4.8); Alkaline Phosphatase 91 U/L (40-150); Anion Gap 13 mmol/L (10-20); BUN (Urea Nitrogen) 15 mg/dL (9.8-20.1); Bilirubin, Total 0.8 mg/dL (0.2-1.2); Calc. Creatinine Clearance 0 mL/min (70-130); Calcium 9.8 mg/dL (7.8-10.44); Carbon Dioxide 26 mmol/L (23-31); Chloride 100 mmol/L (98-107); Estimated GFR-MDRD 88; Globulin 3.3 g/dL (2.4-3.5); Glucose 144 mg/dL (80-115); Potassium 3.8 mmol/L (3.5-5.1); Protein, Total 6.9 g/dL (6.0-8.3); Sodium 135 mmol/L (136-145)
[2018-04-11 07:00] LABS: INR-International Normal Ratio 1.1; Prothrombin Time 14.7 SEC (12.0-14.7)
[2018-04-11 07:03] LABS: CKMB 0.5 ng/mL (0-6.6); Troponin I Less than 0.010 ng/mL (< 0.028)
[2018-04-11] MEDS ORDERED: Enoxaparin Sodium 80 MG/0.8 ML SYRINGE ONE (07:04)
[2018-04-11] MEDS ORDERED: Acetaminophen 325 MG TAB PO PRN (09:53)
--- NOTE | 2018-04-11 09:53 | RAD ---
FRONTAL VIEW CHEST: COMPARISON: 03/25/18. INDICATION: Atrial fibrillation. FINDINGS: There is elevation of the right hemidiaphragm. Cardiac silhouette is enlarged. There is abnormal de nsity of the right hilum with adjacent metallic clips. Mild hazy density is seen at the inferior lef t chest. IMPRESSION: Abnormal right hilar density with adjacent metallic clips. This is a progressive radiographic appear ance. The finding could relate to perihilar pneumonia or, alternatively, underlying mass, which nessa ot be excluded. Recommend followup with 2-view chest radiograph, and should finding persist, followu p with dedicated contrast enhanced CT chest would prove useful to further characterize. CODE T
[2018-04-11] MEDS ORDERED: traMADol HCl 50 MG TAB PO PRN (09:54)
[2018-04-11 10:11] LABS: CKMB 0.6 ng/mL (0-6.6); Troponin I Less than 0.010 ng/mL (< 0.028)
[2018-04-11] MEDS ORDERED: VANCOMYCIN IVPB PRN (11:39)
[2018-04-11] MEDS ORDERED: Vancomycin HCl 1.5 GM in Sodium Chloride 0.9% 250 ML 300 ML IVPB SCH (11:45)
[2018-04-11] MEDS: cefTRIAXone\\ROCEPHIN 1 GM in Sodium Chloride 0.9% 100 ML IVPB SCH (12:52)
[2018-04-11 13:23] LABS: CKMB 0.7 ng/mL (0-6.6); Troponin I Less than 0.010 ng/mL (< 0.028)
[2018-04-11] MEDS: Vancomycin HCl 1.25 GM in Sodium Chloride 0.9% 250 ML 250 ML IVPB SCH (14:59)
[2018-04-11] MEDS: Dronedarone HCl 400 MG TAB PO SCH (18:15)
--- NOTE | 2018-04-11 19:35 | CON ---
DATE OF CONSULTATION: 04/11/2018 HISTORY OF PRESENT ILLNESS: The patient is a 67-year-old woman with a history of aortic valve replacement, who presented with marked weakness and dizziness. The patient most recently underwent a cardiac evaluation for aortic stenosis. She was found to have no significant coronary artery disease. On 03/23/2018, the patient underwent aortic valve replacement. The patient was doing well until she went home and she suddenly felt weak and lightheaded. She presented to the emergency room for further evaluation. PAST MEDICAL HISTORY: 1. Aortic stenosis. 2. Hypertension. 3. Thyroid disorder. PAST SURGICAL HISTORY: AVR and right carpal tunnel surgery. She also has had thyroid surgery. SOCIAL HISTORY: Nonsmoker. MEDICATIONS ON ADMISSION: Prinzide 20/12.5 one tablet p.o. b.i.d., aspirin 325 daily, Crestor 10 daily, Synthroid 50 mcg daily, metoprolol 100 XL daily. ALLERGIES: CODEINE. FAMILY HISTORY: No strong family history of heart disease. SOCIAL HISTORY: Nonsmoker. REVIEW OF SYSTEMS: Ten-point system otherwise unremarkable. No history of easy bruising, bright red blood per rectum. PHYSICAL EXAMINATION: VITAL SIGNS: Blood pressure is 119/58. NECK: Showed no jugular distention. LUNGS: Clear to auscultation. HEART: Regular rate and rhythm, normal S1, S2, 1/6 systolic murmur. ABDOMEN: Nondistended. EXTREMITIES: No edema. SKIN: Warm and dry. There is an erythematous area over the incision site. LABORATORY RESULTS: Revealed white blood count 10.9, hemoglobin 12.3, hematocrit 36.0, platelets 357. Sodium 135, potassium 3.8, chloride 100, bicarbonate 26, BUN 15, creatinine 0.67, troponin was less than 0.01. Her EKG revealed atrial fibrillation with a rapid ventricular response. Follow up EKG revealed normal sinus rhythm with T-wave abnormality suggestive of ischemia. IMPRESSION: 1. Paroxysmal atrial fibrillation. 2. Status post aortic valve replacement. 3. Hypertension. 4. Dyslipidemia. 5. Possible wound infection. This patient presents with new onset atrial fibrillation after aortic valve replacement. She has a CHADS-VASc score of 3. With her history of coronary artery disease, we would recommend she be treated with Multaq. We will also start the patient on Eliquis. Cardiovascular Surgery will be consulted for evaluation of the wound. We will follow this patient with you through her hospitalization. JUAN
[2018-04-11] MEDS: Rosuvastatin 10 MG TAB PO SCH (20:53)
[2018-04-11] MEDS: Enoxaparin Sodium 60 MG/0.6 ML SYRINGE SC SCH (20:54)
[2018-04-11] MEDS ORDERED: Apixaban 5 MG TAB PO SCH (21:00)
[2018-04-11 21:04] LABS: Hemoglobin 11.4 g/dL (12.0-16.0); Platelet Count 329 thou/uL (130-400)
[2018-04-11] MEDS: Diabetic Tussin 200 MG/10 ML UDCUP PO PRN (21:25)
[2018-04-12] MEDS: Vancomycin HCl 1.25 GM in Sodium Chloride 0.9% 250 ML 250 ML IVPB SCH ×2 (02:22→15:40)
[2018-04-12 05:06] LABS: #Basophils 0.1 thou/uL (0.0-0.2); #Eosinphils 0.2 thou/uL (0.0-0.7); #Lymphocytes 1.6 thou/uL (1.20-3.40); #Monocytes 0.9 thou/uL (0.11-0.59); #Neutrophils 5.2 thou/uL (1.40-6.50); %Basophils 0.6 % (0.0-1.0); %Eosinophils 3.1 % (0.0-10.0); %Lymphocytes 20.3 % (21.0-51.0); %Monocytes 11.4 % (0.0-10.0); %Neutrophils 64.6 % (42.0-75.0); Mean Corpuscular HGB CONC 32.8 g/dL (32.0-36.0); Mean Corpuscular Hemoglobin 30.4 pg (27.0-31.0); Mean Corpuscular Volume 92.7 fL (78.0-98.0); Mean Platelet Volume 6.9 fL (7.4-10.4); Platelet Count 309 thou/uL (130-400); RBC Distribution Width 12.5 % (11.5-14.5); Red Blood Cell (RBC) Count 3.62 mill/uL (4.20-5.40)
[2018-04-12 05:15] LABS: Anion Gap 13 mmol/L (10-20); BUN (Urea Nitrogen) 15 mg/dL (9.8-20.1); Calc. Creatinine Clearance 108 mL/min (70-130); Calcium 9.5 mg/dL (7.8-10.44); Carbon Dioxide 25 mmol/L (23-31); Chloride 105 mmol/L (98-107); Estimated GFR-MDRD 87; Glucose 112 mg/dL (80-115); Potassium 3.7 mmol/L (3.5-5.1); Sodium 139 mmol/L (136-145)
--- NOTE | 2018-04-12 07:38 | CON ---
DATE OF CONSULTATION: 04/12/2018 HISTORY OF PRESENT ILLNESS: This is a 67-year-old female who underwent an aortic valve replacement o n 03/23/2018 using a minimally invasive right parasternal incision with a #19 bioprosthetic valve. H er postoperative course was uneventful; however, on the day of readmission she experienced some light headedness or presyncope and was found to be in atrial fibrillation. Incidentally, she noted some dr zhang from her right pericostal incision over the previous 12 hours. She denies any fever at home. Her white count on admission was 10,900 and she has remained afebrile since admission. PHYSICAL EXAMINATION: On examination she has returned to sinus rhythm. Her right parasternal incisio n is closed with 1-2 mm of the right surrounding erythema and purulent drainage on the dressing. It was opened beginning at the medial extent for about half way of the incision and 5-10 mL of purulent fluid was removed and the wound cleaned with Betadine and packed. Left groin incision is clean and d ry and shows no signs of infection. PLAN: The plan at this time is for local wound care. Gram stain showed gram positive cocci and vanc omycin has been instituted.
[2018-04-12] MEDS: FLUoxetine HCl 10 MG CAP PO SCH (09:16)
[2018-04-12] MEDS: Levothyroxine Sodium 50 MCG TAB PO SCH (09:17)
[2018-04-12] MEDS: Aspirin 325 mg Enteric Coated Tablet PO SCH (09:17)
[2018-04-12] MEDS: Stress 600 With Zinc 1 TAB PO SCH (09:17)
[2018-04-12] MEDS: Dronedarone HCl 400 MG TAB PO SCH ×2 (09:17→16:51)
[2018-04-12] MEDS: Enoxaparin Sodium 60 MG/0.6 ML SYRINGE SC SCH ×2 (09:18→21:25)
[2018-04-12] MEDS: Multivit, Therapeutic 1 TAB PO SCH (09:18)
[2018-04-12] MEDS: Diabetic Tussin 200 MG/10 ML UDCUP PO PRN ×2 (09:21→16:51)
--- NOTE | 2018-04-12 09:27 | HP ---
CHIEF COMPLAINT: Generalized weakness. HISTORY OF PRESENT ILLNESS: The patient is a very pleasant 67-year-old female who recently had an ao rtic valve replaced and was discharged in March who comes in today with complaints of generalized weak ness. Patient stated that she was in her good health; however, yesterday when she got up to go to [facility] bathroom, she felt very tired and had generalized weakness. She denies any chest pain or shortness of breath, any nausea, vomiting or diarrhea. The patient states that she has been having a cough; h owever, it has been a very nonproductive cough. Denies any sweating either. The patient denies any fevers or chills either. PAST MEDICAL HISTORY: She has a history of hypertension, depression, and high cholesterol. She also has a history of hypothyroidism. PAST SURGICAL HISTORY: She had a history of tubal ligation, carpal tunnel release, and lumbar nicolasa ctomy and also aortic valve replaced. MEDICATIONS: She takes levothyroxine 50 mcg daily, lisinopril/hydrochlorothiazide 1 tab twice a day, metoprolol 100 mg daily, aspirin 325 daily, Prozac 20 mg q.a.m., Multivitamin 1 daily, rosuvastatin 10 mg daily, tramadol 50 mg q.6 hours p.r.n., vitamin B complex daily. ALLERGIES: She is allergic to CODEINE. SOCIAL HISTORY: The patient denies any alcohol, drug use or smoking history. REVIEW OF SYSTEMS: All negative except the ones mentioned above in the HPI. PHYSICAL EXAMINATION: VITAL SIGNS: She has a temperature of 98.6, 67, 16, 95% on room air, blood pressure 130/60. GENERAL: She is awake, alert, oriented x3. She does not appear in distress. HEENT: Normocephalic, atraumatic. NECK: No lymphadenopathy noted. CHEST: She does have her right chest incision, which has some erythema around the incisional area. Also, has a very purulent drainage that was noted. CARDIOVASCULAR: S1, S2 present. She is currently in sinus rhythm and regular. LUNGS: Clear to auscultation. No rhonchi or wheezes noted. ABDOMEN: Obese. Bowel sounds are present x2. Soft and nontender. EXTREMITIES: No edema. Pedal pulses are present x2. NEUROLOGIC: No focal deficits noted. SKIN: She does have a right chest wall incision, a left lower quadrant incision and also a right upp er quadrant incision from her recent surgery except for the one mentioned on the right chest wall. T he other two surgical areas appear to be healed; however, the right chest wall incision has erythema around it, mild pain and tenderness upon palpation and also has a significant purulent discharge that was drained from the surgical site and cultures were taken. ASSESSMENT AND PLAN: The patient is a very pleasant 67-year-old female who initially presents to the hospital for generalized weakness. 1. Atrial fibrillation with rapid ventricular response. The patient presented to the hospital with generalized weakness, was found to be in atrial fibrillation with heart rate of 140. She was started on Cardizem and she converted to normal sinus without any intervention. We will consult Cardiology. We will also get an echocardiogram and also will check a TSH. Patient also was noted to have signi ficant drainage around the right chest wall area from surgical site. We will consult Cardiovascular surgeon given the patient had recent surgery. Cultures have been taken. We will start her on some b road spectrum antibiotic. 2. History of hypertension. We will continue home medications. 3. History of hypothyroidism. We will continue home medications. 4. Deep venous thrombosis prophylaxis. We will put the patient on subcu heparin.
[2018-04-12] MEDS ORDERED: Metoprolol Tartrate 100 MG TAB PO SCH (10:30)
[2018-04-12] MEDS: cefTRIAXone\\ROCEPHIN 1 GM in Sodium Chloride 0.9% 100 ML IVPB SCH (12:06)
[2018-04-12 14:59] VITALS: BMI 31.4
[2018-04-12] MEDS: Docusate 100 MG CAP PO SCH (21:24)
[2018-04-12] MEDS: Lisinopril/Hydrochlorothiazide 20 mg/12.5 mg Tablet PO SCH (21:25)
--- NOTE | 2018-04-12 21:44 | PDOC.PN ---
- Subjective Encounter Start Date: 04/12/18 Encounter Start Time: 10:45 Subjective: pt up in chair no complains - Objective Resuscitation Status: Resuscitation Status FULL:Full Resuscitation Vital Signs & Weight: Vital Signs (12 hours) Temp Pulse Resp BP BP Pulse Ox 04/12/18 21:25 69 150/66 H 04/12/18 16:00 98.4 F 69 17 128/59 L 95 04/12/18 11:30 71 18 136/62 99 Weight Admit Weight 181 lb 2 oz Weight 182 lb 3 oz I&O: 04/11/18 04/12/18 04/13/18 06:59 06:59 06:59 Intake Total 490 960 Output Total 500 900 Balance -10 60 Result Diagrams: 04/12/18 04:46 04/12/18 04:46 Phys Exam - Physical Examination HEENT: PERRLA, moist MMs, sclera anicteric, TM's clear, oral pharynx no lesions , 2+ tonsils Neck: no nodes, no JVD, supple, full ROM Respiratory: no wheezing, no rales, no rhonchi, wheezing present, clear to auscultation bilateral Cardiovascular: RRR, no significant murmur, no rub, gallop, irregular Gastrointestinal: soft, non-tender, no distention, positive bowel sounds Dx/Plan (1) Paroxysmal A-fib Code(s): I48.0 - PAROXYSMAL ATRIAL FIBRILLATION Status: Acute Plan: pt on lovonox for now. will start eliquis in am (2) Surgical wound infection Code(s): T81.4XXA - INFECTION FOLLOWING A PROCEDURE, INITIAL ENCOUNTER Status : Acute (3) Hypothyroid Code(s): E03.9 - HYPOTHYROIDISM, UNSPECIFIED Status: Acute - Plan cx indicates staph. will wait for sensitivites -: continue vanco will discontinue ceftriaxone * . Review of Systems - Review of Systems ENT: negative: Ear Pain, Ear Discharge, Nose Pain, Nose Discharge, Nose Congestion, Mouth Pain, Mouth Swelling, Throat Pain, Throat Swelling, Other Respiratory: negative: Cough, Dry, Shortness of Breath, Hemoptysis, SOB with Excertion, Pleuritic Pain, Sputum, Wheezing Cardiovascular: negative: chest pain, palpitations, orthopnea, paroxysmal nocturnal dyspnea, edema, light headedness, other Gastrointestinal: negative: Nausea, Vomiting, Abdominal Pain, Diarrhea, Constipation, Melena, Hematochezia, Other Genitourinary: negative: Dysuria, Frequency, Incontinence, Hematuria, Retention , Other - Medications/Allergies Allergies/Adverse Reactions: Allergies Allergy/AdvReac Type Severity Reaction Status Date / Time codeine Allergy Intermediate NAUSEA/VOMI Verified 03/22/18 09:38 TING Medications: Current Medications Acetaminophen (Tylenol) 650 mg PO Q4H PRN PRN Reason: Headache/Fever or Pain Aspirin (Ecotrin) 325 mg PO DAILY [facility] Last Admin: 04/12/18 09:17 Dose: 325 mg Docusate Sodium (Colace) 100 mg PO BID [facility] Last Admin: 04/12/18 21:24 Dose: Not Given Dronedarone (Multaq) 400 mg PO BID-[facility] Last Admin: 04/12/18 16:51 Dose: 400 mg Enoxaparin Sodium (Lovenox) 60 mg SC 0900,2100 [facility] Last Admin: 04/12/18 21:25 Dose: 60 mg Fluoxetine HCl (Prozac) 30 mg PO QAM [facility] Last Admin: 04/12/18 09:16 Dose: 30 mg Guaifenesin (Robitussin Sf) 200 mg PO Q4H PRN PRN Reason: COUGH/ CONGESTION Last Admin: 04/12/18 16:51 Dose: 200 mg Lisinopril/HCTZ (Prinizide 20-12.5) 1 tab PO BID [facility] Last Admin: 04/12/18 21:25 Dose: 1 tab Vancomycin HCl 1.25 gm/ Sodium (Chloride) 250 mls @ 166.667 mls/hr IVPB 0200, 1400 [facility] Last Admin: 04/12/18 15:40 Dose: 250 mls Ceftriaxone Sodium 1 gm/Miscellaneous Medication 1 each/ Sodium Chloride 100 mls @ 200 mls/hr IVPB 1200 [facility] Levothyroxine Sodium (Synthroid) 50 mcg PO QAM [facility] Last Admin: 04/12/18 09:17 Dose: 50 mcg Metoprolol Tartrate (Lopressor) 50 mg PO BID [facility] Miscellaneous Medication (Pharmacy To Dose) 0 each IVPB DAILYPRN PRN PRN Reason: LABS Multivitamins (Theragran) 1 tab PO DAILY [facility] Last Admin: 04/12/18 09:18 Dose: 1 tab Multivitamins/Zinc (Stress 600 With Zinc) 1 tab PO DAILY [facility] Last Admin: 04/12/18 09:17 Dose: 1 tab Rosuvastatin Calcium (Crestor) 10 mg PO HS [facility] Last Admin: 04/11/18 20:53 Dose: 10 mg Sodium Chloride (Flush - Normal Saline) 10 ml IVF Q12HR [facility] Last Admin: 04/12/18 09:21 Dose: 10 ml Sodium Chloride (Flush - Normal Saline) 10 ml IVF PRN PRN PRN Reason: Saline Flush Tramadol HCl (Ultram) 50 mg PO Q6H PRN PRN Reason: Pain
[2018-04-12] MEDS: Metoprolol Tartrate 50 MG TAB PO SCH (21:49)
[2018-04-12] MEDS: Rosuvastatin 10 MG TAB PO SCH (21:49)
[2018-04-13] MEDS: Vancomycin HCl 1.25 GM in Sodium Chloride 0.9% 250 ML 250 ML IVPB SCH (02:47)
[2018-04-13 05:43] LABS: Hemoglobin 10.9 g/dL (12.0-16.0); Platelet Count 335 thou/uL (130-400)
[2018-04-13] MEDS: Dronedarone HCl 400 MG TAB PO SCH ×2 (08:51→16:43)
[2018-04-13] MEDS: Docusate 100 MG CAP PO SCH (08:52)
[2018-04-13] MEDS: Lisinopril/Hydrochlorothiazide 20 mg/12.5 mg Tablet PO SCH (08:52)
[2018-04-13] MEDS: Levothyroxine Sodium 50 MCG TAB PO SCH (08:52)
[2018-04-13] MEDS: FLUoxetine HCl 10 MG CAP PO SCH (08:52)
[2018-04-13] MEDS: Stress 600 With Zinc 1 TAB PO SCH (08:52)
[2018-04-13] MEDS: Aspirin 325 mg Enteric Coated Tablet PO SCH (08:52)
[2018-04-13] MEDS: Multivit, Therapeutic 1 TAB PO SCH (08:52)
[2018-04-13] MEDS: Metoprolol Tartrate 50 MG TAB PO SCH (08:52)
[2018-04-13] MEDS: Enoxaparin Sodium 60 MG/0.6 ML SYRINGE SC SCH (08:53)
[2018-04-13] MEDS: Diabetic Tussin 200 MG/10 ML UDCUP PO PRN (08:56)
[2018-04-13] MEDS ORDERED: Sulfameth/Trimethoprim DS 800-160mg TAB PO SCH (09:00)
[2018-04-13] MEDS ORDERED: cefTRIAXone\\ROCEPHIN 1 GM, Admixture Fee 1 EACH in Sodium Chloride 0.9% 100 ML IVPB SCH (12:00)
[2018-04-13 16:42] VITALS: BP 136/61; TEMP 98.4
[2018-04-13] MEDS ORDERED: Enoxaparin Sodium 80 MG/0.8 ML SYRINGE SC SCH (21:00)
[2018-04-13] MEDS ORDERED: Apixaban 5 MG TAB PO SCH (21:00)
--- NOTE | 2018-04-14 00:59 | DIS ---
DATE OF ADMISSION: 04/11/2018 DATE OF DISCHARGE: 04/13/2018 DISCHARGE DIAGNOSES: As of the followin. Atrial fibrillation with rapid ventricular response, currently sinus rhythm. 2. Surgical wound infection. 3. Hypertension. 4. Hypothyroidism. HOSPITAL COURSE: Patient is a very pleasant 67-year-old female who presents to the hospital with ini tially complaints of generalized weakness. She was found to be in atrial fibrillation with rapid junaid tricular response of 140. She was started on a Cardizem drip in the ER; however, converted to normal sinus rhythm. She was seen by Cardiology and underwent an echo, which indicated an EF of 50% -55%, left atrium was mildly dilated, mild mitral regurgitation, and mild tricuspid regurgitation. Patient recently had a bioprosthetic aortic valve replaced done by [facility]. However, upon further evalua tion of her incisional site on her right upper chest area, she did have significant purulent discharg e noted. Cultures were taken. Patient's microbiology indicated MSSA. Patient initially was put on broad-spectrum antibiotics, which was tapered down to Bactrim upon discharge. We will give a total d ose of 14 days. She will follow up with the [facility] as an outpatient. Patient also has been star edilma on Eliquis 5 mg p.o. b.i.d. This is per recommendations from Cardiology. Patient currently is i n sinus rhythm. She has been on a beta-blossom and on antiarrhythmic. Patient did have some nonprod uctive cough, for which her STERLING inhibitor was discontinued due to her cough. PHYSICAL EXAMINATION: VITAL SIGNS: Temperature is 98.2, 67, 16, 97% on room air, blood pressure 144/64. GENERAL: She is awake, alert, oriented x3, does not appear in any distress. CARDIOVASCULAR: S1, S2 present. No murmurs, rubs, or gallops. She has a right wound dressing which is intact. S1, S2 present normal sinus. LUNGS: Clear to auscultation. No rhonchi or wheezes noted. ABDOMEN: Soft, nontender. Bowel sounds are present. EXTREMITIES: No edema. HOME MEDICATIONS: Are as the following, she is going to take Crestor 10 mg at bedtime, multivitamin 1 daily, Synthroid 50 q.a.m., Prozac 20 mg daily, Ultram 50 mg q.6 hours p.r.n., vitamin B complex 15 0 mg q.a.m., metoprolol 100 mg daily, Bactrim 1 p.o. b.i.d., Multaq 400 mg b.i.d., aspirin 81 mg sal[place] y, and Eliquis 5 mg p.o. b.i.d. I did speak with [facility] Surgery who stated that to continue aspirin 81 mg daily with Eliquis. She will h ave wound care daily until she sees them in a week, and I also have provided her with a BMP slip to [facility] for her creatinine function next week while on Bactrim, this also will be faxed to her primary c are doctor.
[2018-04-14] MEDS ORDERED: Aspirin 81 mg Enteric Coated Tablet PO SCH (09:00)
== END 2018-04-13 17:40 | disposition home health service (06) | DRG 309 ==
LOC: ERS 05:54 → 2NO 09:09
PROVIDERS: ADMIT Internal Medicine; ATTEND Internal Medicine
DX: I48.0 Paroxysmal atrial fibrillation (principal); T81.4XXA Infection following a procedure, initial encounter; E03.9 Hypothyroidism, unspecified; Z91.81 History of falling; Z95.2 Presence of prosthetic heart valve; I10 Essential (primary) hypertension; F32.9 Major depressive disorder, single episode, unspecified; Z98.51 Tubal ligation status; I08.1 Rheumatic disorders of both mitral and tricuspid valves; A49.01 Methicillin susceptible Staphylococcus aureus infection, unspecified site; E78.5 Hyperlipidemia, unspecified; E66.9 Obesity, unspecified; Z68.31 Body mass index [BMI] 31.0-31.9, adult
CPT/HCPCS: 36415; 71045; 80048; 80053; 80202; 82553; 82565; 83880; 84443; 84484; 85014; 85018; 85025; 85049; 85610; 85730; 87070; 87077; 87186; 87205; 93005; 93306; 94760; 96365; 96372; 96376; A4216; J0696; J1650; J3370; J7050

== ENCOUNTER 2018-04-19 14:04 | Outpatient (CLI) | payer MEDICARE, BC ==
--- NOTE | 2018-04-19 23:35 | HP ---
DATE OF ADMISSION: 04/19/2018 HISTORY OF PRESENT ILLNESS: Ms. Serenity Brown is a very pleasant 67-year-old, who presents to the Wound Center for evaluation of a wound of the right anterior chest subsequent to aortic valve replace ment for aortic stenosis on 03/23/[address] Forest Escamilla. The patient states that, after she was discharged from the hospital, she required readmission for atrial fibrillation. During the patient's hospital stay, Ms. Brown was seen by Dr. Byrd, and the wound of the right anterior chest was opene d. The patient was discharged from the hospital with arrangements for dressing changes with the [facility]. Also, upon discharge from [facility], the patient was referred to the Wound Center for further evaluation and treatment. The patient apparently has been r eceiving dressing changes of Namshi AG by [facility]. PAST MEDICAL HISTORY: 1. Hypertension. 2. Aortic stenosis. 3. Diabetes mellitus. 4. Hypothyroidism. 5. Atrial fibrillation. PAST SURGICAL HISTORY: 1. Right carpal tunnel release by Dr. Flores on 02/21/2009. 2. Left carpal tunnel release by Dr. Flores on 01/23/2017. 3. Tubal ligation. 4. Lumbar laminectomy. 5. Aortic valve replacement for aortic stenosis, 03/23/[address] Escamilla. 6. Surgery for right carpal tunnel syndrome and de Quervain's on 01/12/[address] Thomason. MEDICATIONS: 1. Eliquis. 2. Aspirin. 3. Multaq. 4. Bactrim DS. 5. Crestor. 6. Synthroid. 7. Prozac. 8. Multivitamin. 9. Vitamin B. 10. Toprol. 11. Ultram p.r.n. ALLERGIES: CODEINE. SOCIAL HISTORY: Social history is negative for tobacco or ETOH use. FAMILY HISTORY: Negative for diabetes mellitus or coronary artery disease. PHYSICAL EXAMINATION: VITAL SIGNS: Temperature 98.5, pulse 68, respirations 18, blood pressure 128/61, Accu-Chek 106. GENERAL: A 67-year-old female, lying on table in examination room, in no acute distress. HEENT: Normocephalic, atraumatic. NECK: No nuchal rigidity. CHEST: Clear to auscultation. A wound of the right anterior chest is present, which measures approx imately 0.7 x 2.2 cm. The depth of the wound is approximately 1.3 cm. Granulation tissue was presen t within the wound margins. Nonviable tissue present within the wound margins was debrided with an e xcisional full-thickness debridement. No purulent drainage is associated with the wound. No celluli tis of the right anterior chest is appreciated. No maceration of the skin of the periwound is noted. CARDIAC: Regular rate and rhythm. ABDOMEN: Soft. EXTREMITIES: No clubbing or cyanosis. NEUROLOGIC: Grossly nonfocal. ASSESSMENT AND PLAN: 1. Nonhealing surgical wound of right anterior chest subsequent to minimally invasive aortic valve r eplacement on 03/23/[address] Forest Escamilla for aortic stenosis. The patient was discharged to [facility] on 04/13/2018 on Bactrim. The patient states she has 5 days remaining of Bactrim DS. Because of s ignificant difficulty in tolerating Bactrim DS, Ms. Brown has been given a prescription for Keflex # 40, 500 mg 1 p.o. q.i.d. x10 days. The patient will be seen by Dr. Forest Escamilla in 2 days. I will see Ms. Brown again in 2 weeks. [facility] Orders will be transmitted to [facility] Health for dressing changes of Aquacel AG packing strips a nd Mepilex border on a daily basis after cleansing and irrigation. The patient understands and is in agreement with the preceding treatment plan. 3. Diabetes mellitus. The patient's Accu-Chek in clinic today is 106. The patient has been told th at for optimal wound healing, her blood glucoses should remain below 150. 4. Hypertension. 5. Aortic stenosis, status post minimally invasive aortic valve replacement. 6. Hypothyroidism. 7. Atrial fibrillation.
== END 2018-04-19 14:05 | disposition home or self-care (01) ==
LOC: WCC 14:04
PROVIDERS: ATTEND Family Medicine
DX: T81.89XD Other complications of procedures, not elsewhere classified, subsequent encounter (principal); E11.9 Type 2 diabetes mellitus without complications; I10 Essential (primary) hypertension; E03.9 Hypothyroidism, unspecified; I48.91 Unspecified atrial fibrillation; Z95.2 Presence of prosthetic heart valve
CPT/HCPCS: 36416

== ENCOUNTER 2018-05-03 13:26 | Outpatient (CLI) | payer MEDICARE, BC ==
--- NOTE | 2018-05-03 13:54 | PRG ---
DATE OF SERVICE: 05/03/2018 HISTORY: Ms. Serenity Brown is a very pleasant 67-year-old who presents to the Wound Center for ruby luation of a wound of the right anterior chest subsequent to aortic valve replacement for aortic sten osis on 03/23/[address] Forest Escamilla. The patient previously stated that after she was discharged from the hospital, she required readmission for atrial fibrillation. During the patient's hospital stay, Ms. Brown was seen by Dr. Byrd and the wound of the right anterior chest was opened. The pat ient was discharged from the hospital with arrangements for dressing changes with the assistance of [facility]. Also upon discharge from [facility], the patient was referred to the Wound Center for further evaluation and treatment. Since the patient's last visit, Ms. Brown jean s been receiving dressing changes of Aquacel AG 3 times per week after cleansing and irrigation with the assistance of [facility]. PHYSICAL EXAMINATION: VITAL SIGNS: Temperature 98.0, pulse 68, respirations 21, blood pressure 198/86. CHEST: A wound of the right anterior chest is present which measures approximately 1.3 x 0.4 cm. Th e depth of the wound is approximately 1.4 cm. Granulation tissue is present within the wound margins . Nonviable tissue present within the wound margins was debrided with an excisional full-thickness d ebridement. No purulent drainage is associated with the wound. No cellulitis of the right anterior chest is appreciated. No maceration of the skin of the periwound is noted. ASSESSMENT AND PLAN: 1. Nonhealing surgical wound of right anterior chest subsequent to minimally invasive aortic valve r eplacement on 03/23/[address] Forest Escamilla for aortic stenosis. Orders will be transmitted to [facility] for dressing changes of Aquacel AG and Mepilex border 3 times per week after cleansing and i rrigation. The patient was previously given permission to continue cardiac rehabilitation. I will s ee Ms. Brown again in 2 weeks. The patient states she has a followup appointment with Dr. Escamilla in approximately 3 months. 2. Diabetes mellitus. Accu-Cheks will be obtained at the time of the patient's clinic visits. The patient has been reminded that for optimal wound healing, her blood glucoses should remain below 150. 3. Hypertension. 4. Aortic stenosis, status post minimally invasive aortic valve replacement. 5. Hypothyroidism. 6. Atrial fibrillation.
== END 2018-05-03 13:27 | disposition home or self-care (01) ==
LOC: WCC 13:26
PROVIDERS: ATTEND Family Medicine
DX: T81.89XD Other complications of procedures, not elsewhere classified, subsequent encounter (principal); E11.9 Type 2 diabetes mellitus without complications; I48.91 Unspecified atrial fibrillation; E03.9 Hypothyroidism, unspecified; I10 Essential (primary) hypertension; Z95.2 Presence of prosthetic heart valve
CPT/HCPCS: 11042

== ENCOUNTER 2018-05-17 08:48 | Outpatient (CLI) | payer MEDICARE, BC ==
--- NOTE | 2018-05-17 09:57 | PRG ---
DATE OF SERVICE: 05/17/2018 HISTORY: Ms. Serenity Brown is a very pleasant 67-year-old who presents to the Wound Center for ruby luation of a wound of the right anterior chest subsequent to aortic valve replacement for aortic sten osis on 03/23/[address] Forest Escamilla. The patient previously stated that after she was discharged from the hospital, she required readmission for atrial fibrillation. During the patient's hospital stay, Ms. Brown was seen by Dr. Byrd and the wound of the right anterior chest was opened. The pat ient was discharged from the hospital with arrangements for dressing [facility]. Also upon discharge from [facility], the patient was referred to the Wound Center for further evaluation and treatment. Since the patient's last visit, Ms. Brown jean s been receiving dressing changes of Aquacel AG 3 times per week after cleansing and irrigation with the assistance of [facility]. PHYSICAL EXAMINATION: VITAL SIGNS: Temperature 98.1, pulse 70, respirations 18, blood pressure 175/75. CHEST: A wound of the right anterior chest is present which measures approximately 0.2 x 0.2 cm. Gr anulation tissue is present within the wound margins. No significant undermining is associated with the wound. Nonviable tissue present within the wound margins was debrided with an excisional full-th ickness debridement. No purulent drainage is associated with the wound. No cellulitis of the right anterior chest is appreciated. No maceration of the skin of the periwound is noted. ASSESSMENT AND PLAN: 1. Nonhealing surgical wound of right anterior chest subsequent to minimally invasive aortic valve r eplacement on 03/23/[address] Forest Escamilla for aortic stenosis. Orders will be transmitted to [facility] for dressing changes of Aquacel AG and Mepilex border 3 times per week after cleansing and i rrigation until the wound has completely healed. The patient was previously given permission to cont inue cardiac rehabilitation. The wound has almost healed completely and Ms. Brown will be discharge d from clinic today with followup on a p.r.n. basis. The patient states she has a followup appointme nt with Dr. Escamilla in June. 2. Diabetes mellitus. The patient has been reminded that for optimal wound healing, her blood gluco ses should remain below 150. 3. Hypertension. 4. Aortic stenosis, status post minimally invasive aortic valve replacement. 5. Hypothyroidism. 6. Atrial fibrillation.
[2018-05-17] MEDS ORDERED: Sodium Chloride 0.9% 15 ML NEB ONE (17:41)
== END 2018-05-17 08:49 | disposition home or self-care (01) ==
LOC: WCC 08:48
PROVIDERS: ATTEND Family Medicine
DX: T81.89XD Other complications of procedures, not elsewhere classified, subsequent encounter (principal); E11.9 Type 2 diabetes mellitus without complications; I10 Essential (primary) hypertension; E03.9 Hypothyroidism, unspecified; I48.91 Unspecified atrial fibrillation; Z95.2 Presence of prosthetic heart valve
CPT/HCPCS: A4218

== ENCOUNTER 2018-06-09 22:52 | Inpatient (IN) | payer MEDICARE, BC ==
[2018-06-09 23:46] LABS: #Lymphocytes 0.9 thou/uL (1.20-3.40); #Monocytes 0.5 thou/uL (0.11-0.59); %Basophils 0.2 % (0.0-1.0); %Eosinophils 0.5 % (0.0-10.0); %Lymphocytes 13.9 % (21.0-51.0); %Monocytes 8.1 % (0.0-10.0); %Neutrophils 77.4 % (42.0-75.0); Hemoglobin 11.1 g/dL (12.0-16.0); Mean Corpuscular Hemoglobin 31.5 pg (27.0-31.0); Mean Corpuscular Volume 92.7 fL (78.0-98.0); Mean Platelet Volume 7.8 fL (7.4-10.4); Platelet Count 240 thou/uL (130-400); RBC Distribution Width 14.8 % (11.5-14.5); Red Blood Cell (RBC) Count 3.52 mill/uL (4.20-5.40); White Blood Cell (WBC) Count 6.5 thou/uL (4.8-10.8)
--- NOTE | 2018-06-09 23:52 | RAD ---
PA AND LATERAL CHEST X-RAY: 06/09/18 HISTORY: Chest tightness/chest pain which started at 5 p.m. today with associated upper abdominal pain. Histor y of aortic valve replacement. COMPARISON: 04/11/18. FINDINGS: There are postsurgical changes related to aortic valve replacement. Surgical clips again overlie the right hilar region. Cardiac silhouette is mildly enlarged. Pulmonary vasculature is within normal stevenson its. There is linear scarring versus atelectasis in the right mid lung zone. There is a small right a nd tiny left pleural effusions present. Again noted is mild elevation of the right hemidiaphragm. Oss eous structures are intact. IMPRESSION: 1. Small bilateral pleural effusions, greater on the right. 2. Mild cardiomegaly. POS: [facility]
[2018-06-10 00:04] LABS: ALT (SGPT) 298 U/L (8-55); AST (SGOT) 573 U/L (5-34); Albumin 4.2 g/dL (3.4-4.8); Alkaline Phosphatase 145 U/L (40-150); Anion Gap 15 mmol/L (10-20); BUN (Urea Nitrogen) 19 mg/dL (9.8-20.1); Bilirubin, Total 2.7 mg/dL (0.2-1.2); CK (CPK) 38 U/L (29-168); Calc. Creatinine Clearance 0 mL/min (70-130); Calcium 9.8 mg/dL (7.8-10.44); Carbon Dioxide 23 mmol/L (23-31); Chloride 104 mmol/L (98-107); Estimated GFR-MDRD 69; Globulin 3.3 g/dL (2.4-3.5); Glucose 137 mg/dL (80-115); Lipase 26 U/L (8-78); Potassium 4.5 mmol/L (3.5-5.1); Protein, Total 7.5 g/dL (6.0-8.3); Sodium 137 mmol/L (136-145)
[2018-06-10 00:06] LABS: CKMB 0.5 ng/mL (0-6.6); Troponin I Less than 0.010 ng/mL (< 0.028)
[2018-06-10] MEDS ORDERED: Nitroglycerin 2% Ointment 1 INCH/1 GM Packet ONE (00:41)
[2018-06-10] MEDS ORDERED: Pantoprazole 40 MG VIAL ONE (00:41)
[2018-06-10] MEDS ORDERED: Morphine 4 MG/ML VIAL ONE (01:33)
[2018-06-10] MEDS ORDERED: Piperacillin/Tazobactam 4.5 GM VIAL ONE (03:57)
[2018-06-10] MEDS ORDERED: Acetaminophen 325 MG TAB PO PRN (06:03)
[2018-06-10] MEDS ORDERED: Ondansetron HCl/PF 4 MG/2 ML Vial IVP PRN (06:03)
[2018-06-10 06:26] VITALS: BMI 33.8
[2018-06-10] MEDS ORDERED: Famotidine 20 MG TAB PO SCH (09:00)
[2018-06-10] MEDS ORDERED: Acetaminophen 1,000 MG in Premix Bag 1 BAG IVPB PRN (11:54)
[2018-06-10] MEDS ORDERED: Acetaminophen 1,000 MG in Premix Bag 1 BAG IVPB SCH (12:00)
[2018-06-10] MEDS ORDERED: Ketorolac Tromethamine 30 MG/ML VIAL IVP SCH (12:00)
[2018-06-10] MEDS ORDERED: Lactated Ringer's 1,000 ML IV SCH (12:00)
[2018-06-10] MEDS ORDERED: Promethazine HCl 25 MG/ML VIAL IM/IV PRN (12:23)
--- NOTE | 2018-06-10 12:38 | ULT ---
PRELIMINARY REPORT/[facility]/EMERGENTY AFTER-HOURS PROCEDURE US Abdomen Limited, Right Upper Quadrant CLINICAL HISTORY: 67 years old, female; Pain; Abdominal pain; Generalized; Prior surgery; Surgery date: 1-6 months; Zuhair cuate type: Aorta valve replacement; Patient HX: Chest tightness, abdomen pain TECHNIQUE: Real-time ultrasound of the right upper quadrant with image documentation. COMPARISON: No relevant prior studies available. FINDINGS: Liver: No acute findings. No mass. No intrahepatic bile duct dilation. Gallbladder: Multiple small gallstones with acoustic shadowing. Questionable borderline gallbladder w all thickening. Common bile duct: Unremarkable. Pancreas: Limited visualization due to bowel gas. Unremarkable as visualized. Right kidney: No acute findings. No stones. No solid mass. No hydronephrosis. Pleural space: Small right pleural effusion. IMPRESSION: Cholelithiasis with questionable borderline gallbladder wall thickening; recommend clinical correlati on/followup for cholecystitis. Small right pleural effusion. Thank you for allowing us to participate in the care of your patient. Dictated and Authenticated by: Gurinder Robb MD 06/10/2018 2:55 AM Central Time ([place] & [place]) FINAL REPORT SONOGRAM RIGHT UPPER QUADRANT: DATE: 06/10/18. TIME: Performed on an emergency basis at 0157 hours. HISTORY: Right upper quadrant pain. FINDINGS: Agree with the preliminary report by Dr. Robb from [facility]. Gallstones are confirmed. Rachid rderline gallbladder wall thickening given the amount of gallbladder distention. Clinical correlatio n regarding other signs and symptoms of acute cholecystitis is required. POS: [facility]
[2018-06-10 12:53] LABS: #Lymphocytes 0.5 thou/uL (1.20-3.40); #Monocytes 0.3 thou/uL (0.11-0.59); #Neutrophils 3.7 thou/uL (1.40-6.50); %Eosinophils 0.6 % (0.0-10.0); %Lymphocytes 11.6 % (21.0-51.0); %Monocytes 7.4 % (0.0-10.0); %Neutrophils 80.4 % (42.0-75.0); Hemoglobin 10.6 g/dL (12.0-16.0); Mean Corpuscular HGB CONC 33.2 g/dL (32.0-36.0); Mean Corpuscular Hemoglobin 31.2 pg (27.0-31.0); Mean Corpuscular Volume 93.9 fL (78.0-98.0); Mean Platelet Volume 7.4 fL (7.4-10.4); Platelet Count 186 thou/uL (130-400); RBC Distribution Width 14.5 % (11.5-14.5); Red Blood Cell (RBC) Count 3.38 mill/uL (4.20-5.40); White Blood Cell (WBC) Count 4.6 thou/uL (4.8-10.8)
[2018-06-10] MEDS ORDERED: Morphine 4 MG/ML Carpuject SLOW IVP PRN (13:09)
[2018-06-10] MEDS ORDERED: Ondansetron ODT 8 MG TAB SL PRN (13:10)
[2018-06-10 13:17] LABS: ALT (SGPT) 510 U/L (8-55); AST (SGOT) 717 U/L (5-34); Alkaline Phosphatase 169 U/L (40-150); Anion Gap 13 mmol/L (10-20); BUN (Urea Nitrogen) 17 mg/dL (9.8-20.1); Bilirubin, Total 3.7 mg/dL (0.2-1.2); Calc. Creatinine Clearance 94 mL/min (70-130); Calcium 9.5 mg/dL (7.8-10.44); Carbon Dioxide 23 mmol/L (23-31); Chloride 105 mmol/L (98-107); Estimated GFR-MDRD 70; Globulin 3.1 g/dL (2.4-3.5); Glucose 115 mg/dL (80-115); Potassium 4.2 mmol/L (3.5-5.1); Protein, Total 7.1 g/dL (6.0-8.3); Sodium 137 mmol/L (136-145)
[2018-06-10] MEDS ORDERED: Morphine 4 MG/ML VIAL IV PRN (13:19)
[2018-06-10] MEDS: Ketorolac Tromethamine 30 MG/ML VIAL IVP PRN (13:21)
[2018-06-10] MEDS: Ondansetron HCl/PF 4 MG/2 ML Vial IVP PRN (13:32)
[2018-06-10] MEDS: Piperacillin/Tazobactam 3.375 GM in Sodium Chloride 0.9% 100 ML IVPB SCH ×2 (13:39→19:30)
--- NOTE | 2018-06-10 14:28 | HP ---
CHIEF COMPLAINT: Chest tightness. HISTORY OF PRESENT ILLNESS: This is a 67-year-old female with past medical history of atrial fibrillation, Staph infection, status post aortic valve replacement, hypothyroidism and hypertension presenting with chest tightness. The patient felt that she was having some sort of heart attack because she was having this chest tightness which was radiating to the upper abdomen and patient stated that it started around 1700 on the day of admission and the pain was dull in nature, diffuse 10/10 on the pain scale and it prompted the patient go to the hospital. In the hospital upon further evaluation, patient was found to have acute cholecystitis. Surgery evaluated the patient and agreed to admit the patient to the hospital. REVIEW OF SYSTEMS: Positive for abdominal pain, otherwise as documented in HPI. All other systems were reviewed and are negative. PAST MEDICAL HISTORY: aortic valve replacement, hypothyroidism, hypertension. PAST SURGICAL HISTORY: Aortic valve replacements 03/23/2018, tubal ligation in . PSYCHIATRIC HISTORY: No psych history. FAMILY HISTORY: Reviewed and noncontributory to this visit. SOCIAL HISTORY: Patient denies any alcohol use. The patient denies any drug use. The patient denies any smoking. ALLERGIES: Patient is allergic to CODEINE. CURRENT MEDICATIONS: Patient is on aspirin, metoprolol, Crestor, Multaq, Eliquis, Prozac, levothyroxine. PHYSICAL EXAMINATION: VITAL SIGNS: Blood pressure 170/80, pulse 64, respiratory rate of 20, temperature 98.1. GENERAL APPEARANCE: The patient is lying comfortably in bed with her by the bedside. The patient does not appear to be in acute distress. HEENT: Normocephalic, atraumatic. Pupils are equally round and reactive to light. Extraocular movements are intact. No scleral icterus. Trachea is midline. NECK: No JVD. Supple. Mucous membranes are moist. RESPIRATORY: Lungs are clear to auscultation bilaterally. No wheezing, no rales, no rhonchi is appreciated. CARDIAC: Positive S1, S2, regular rate and rhythm, no murmurs, no rubs, no gallops appreciated. EXTREMITIES: Upper extremity, 5/5 upper extremity strength, 5/5 lower extremity strength. ABDOMEN: Patient do have right upper quadrant tenderness. Positive bowel sounds. No ecchymosis noted. SKIN: Warm, dry, and intact. PSYCHIATRIC: Patient is alert, oriented x3, normal affect. IMAGING DATA: Abdomen ultrasound showed gallstones are confirmed and borderline gallbladder wall thickening given the amount of gallbladder distention. Clinical correlation regarding other signs and symptoms of acute cholecystitis. Chest x-ray; small bilateral pleural effusions greater on the right. Mild cardiomegaly. LABORATORY DATA: CBC is 6.5, hemoglobin is 11.1, platelet is 240. Sodium 134, potassium 4.5 and glucose 137. Lactic acid is 1.4, total bilirubin is 2.7, AST 573, ALT 298. Troponins less than 0.01. ASSESSMENT AND PLAN: 1. A 57-year-old female being admitted for abdominal pain, likely due to acute cholecystitis. The patient is going to be given pain medication for pain IV fluids, Zosyn. Surgery is on consult. We will get Cardiology for medical clearance if surgery decides to do cholecystectomy. 2. History of atrial fibrillation. At this point, patient's medications are being held. Patient is n.p.o. However, we could be able to give the patient her medications with small sips of water, but since the patient might go for surgery, we will currently hold any anticoagulation. 3. Transaminitis, most likely secondary to cholelithiasis. At this point, we will monitor patient's AST, ALT. We will continue patient on IV hydration and antibiotics. 4. History of aortic valve replacement, currently stable. We will continue patient on current management. 5. Hypothyroidism. Currently, patient is n.p.o. If patient is to go to surgery, we will continue to hold medication. If not, the patient can be able to take her home medications overnight. JJD
[2018-06-10] MEDS: Lactated Ringer's 1,000 ML IV SCH (15:08)
--- NOTE | 2018-06-10 16:14 | PDOC.EVN ---
Event Note - Event Note Event Note: pt up in bed complains of nausea and abdominal pain. pt on eliquis bid for bioprosthetic Aortic valve repair in march. pt to go for cholecystectomy.
--- NOTE | 2018-06-10 18:23 | MRI ---
MRI OF THE ABDOMEN WITHOUT CONTRAST 06/10/18 COMPARISON: Gallbladder ultrasound 06/10/18. HISTORY: Cholelithiasis with possible choledocholithiasis. Elevated LFTs. TECHNIQUE: Multiplanar and multisequence MRI images were obtained of the abdomen without contrast. MRCP images w ere performed. FINDINGS: There are filling defects within the gallbladder consistent with the patient's gallstones seen on gopi or ultrasound. The common bile duct is normal in caliber without filling defects. The pancreatic duct is normal in caliber. There is a 9 mm well circumscribed focus of high T2 signal in the head of the pancreas which could represent a pseudocyst or cystic pancreatic neoplasm. No focal liver lesions are seen. There is subtle diffuse loss of signal on out of phase images in the liver consistent with fatty infiltration. There is a well circumscribed focus of high T2 signal in t he left kidney measuring 1.1 cm in size which represents a cyst. The right kidney, adrenal glands, an d spleen are unremarkable. No abdominal adenopathy is seen. No marrow signal abnormality is present. There appears to be a small right pleural effusion. IMPRESSION: 1. Cholelithiasis without evidence of choledocholithiasis. 2. Small cystic lesion in the pancreatic head may represent a small pseudocyst. A cystic pancrea tic neoplasm cannot be entirely excluded. A followup CT or MRI without and with contrast on a nonemer gent outpatient basis in three months is recommended to ensure stability. 3. Fatty liver. 4. Left renal cyst. POS: C
[2018-06-10] MEDS: Dronedarone HCl 400 MG TAB PO SCH (19:30)
--- NOTE | 2018-06-10 19:55 | HP ---
HISTORY OF PRESENT ILLNESS: A 67-year-old female status post AVR followed by Dr. Norton, on Eliqui s, took a dose last night. The patient for several months, probably years has been having intermitte nt epigastric right upper quadrant pain post-fatty food intake. She had a particularly bad episode y esterday, presented to emergency room. Ultrasound revealed gallstones with bile duct of 3.4 mm, whit e count 6, hemoglobin 11.1, bilirubin 2.7, AST is 573, ALT 298, lipase normal. The patient has been admitted on Zosyn. Her Eliquis has been held. I have been asked to see regarding her cholecystitis and cholelithiasis. It is likely her liver function tests are elevated due to her acute cholecystiti s and less likely that she has choledocholithiasis as her common bile duct is not dilated. Plan woul d be for a laparoscopic video cholecystectomy, cholangiograms. We will notify Gastroenterology for p ossible ERCP pending cholangiogram findings. ALLERGIES: CODEINE. TOBACCO: None. ALCOHOL: None. MEDICATIONS: Ultram p.r.n. pain, vitamin B, Crestor 10 mg at bedtime, multivitamins daily, metoprolo l 100 mg p.o. daily, levothyroxine 50 mcg p.o. daily, fluoxetine, Prozac 20 mg IM, Multaq 400 mg b.i. d., aspirin 81 mg a day, Eliquis 5 mg b.i.d., held since last dose last night. PAST SURGICAL HISTORY: AVR in March of this year, performed by Dr. Forest Escamilla, minimally invasive approach bioprosthetic valve. On 01/12/2018, carpal tunnel release, Dr. Thomason, right. On 017, left carpal tunnel release, Dr. Flores. Echocardiogram, 04/12/2018, 55% ejection fraction, LV f unction normal. REVIEW OF SYSTEMS: Ten-point noncontributory. The patient has never had a colonoscopy. FAMILY HISTORY: Noncontributory. PHYSICAL EXAMINATION: VITAL SIGNS: 5 foot 3 inches tall, 191 pounds, 33 BMI, 97.761, 152/66. HEAD, EYES, EARS, NOSE, AND THROAT: Unremarkable. Sclerae nonicteric. Neurologically intact. Cran ial nerves intact. NECK: Groins, axilla without lymphadenopathy. She is moderately obese. LUNGS: Clear to auscultation. CARDIAC: Regular rate and rhythm without murmur or gallop. ABDOMEN: Soft, tenderness in right upper quadrant. No guarding, rebound. Positive Perdomo sign. EXTREMITIES: Unremarkable. No ankle edema, palpable pedal pulses. LABORATORY DATA: As noted above. ASSESSMENT AND PLAN: Cholecystitis, cholelithiasis, acute and chronic cholecystitis. She has had bi liary symptoms for years. PLAN: 1. Laparoscopic video cholecystectomy, cholangiogram and will notify Gastroenterology if cholangiogr am is positive, such that she may need an ERCP. 2. On Eliquis for AVR. Hold her Eliquis. Plan surgery tomorrow because of anticoagulation. Contin ue intravenous antibiotics.
[2018-06-11] MEDS ORDERED: Vancomycin HCl 1.25 GM in Sodium Chloride 0.9% 250 ML 250 ML IVPB SCH (01:00)
--- NOTE | 2018-06-11 01:18 | CON ---
DATE OF CONSULTATION: 06/10/2018 PRIMARY ADOPTION WORKER: Rico Norton MD REASON FOR ADMISSION: Cholecystitis. REASON FOR CONSULTATION: Preoperative evaluation. HISTORY OF PRESENT ILLNESS: Ms. Serenity Brown is a very pleasant 67-year-old woman. She was admitted to the hospital with abdominal pain, found to have cholecystitis. She will need to undergo surgery soon. Apparently, she also has atrial fibrillation as she is on Eliquis. The last dose was yesterda y evening. PAST MEDICAL HISTORY: She has a history of aortic valve replacement, 03/22/2018. The indication was severe aortic stenosis that was done with the minimally invasive approach. Catheterization was negative for coronary artery disease. The patient did very well with that surger y. She has subsequently been found to have paroxysmal atrial fibrillation. She was seen here in Apr and started on Eliquis by Dr. Juarez. The patient currently is resting comfortably and doing well. MEDICATIONS AT HOME: 1. She was taking Eliquis 5 mg twice a day, last dose yesterday evening. 2. Aspirin. 3. Multaq. 4. Levothyroxine. 5. Rosuvastatin. REVIEW OF SYSTEMS: Constitutional: No significant weight gain or loss. Vision: No changes. Heari ng: No changes. Pulmonary: No cough or wheezing. Gastrointestinal: No nausea, vomiting, diarrhea . Skin: No rashes. Neurologic: No unilateral weakness or numbness. Psychiatric: No unusual depr ession or anxiety. Hematologic: No unusual bruising. Genitourinary: No burning with urination. PHYSICAL EXAMINATION: GENERAL: A delightful elderly woman in no distress. VITAL SIGNS: Blood pressure 133/58, pulse 62 and regular. LUNGS: Clear. CARDIAC: Normal S1, normal S2. There is no murmur, rub, or gallop. ABDOMEN: Soft, nontender. No hepatosplenomegaly. EXTREMITIES: Warm, dry. No clubbing or cyanosis. There is no edema. PERTINENT LABORATORY DATA: Her AST was 573, went to 717; ALT 298, went to 510. Creatinine is 0.8. EKG, sinus rhythm. ASSESSMENT: 1. Cholecystitis. 2. Increased liver function tests. 3. Paroxysmal atrial fibrillation. PLAN: The patient from a hemodynamic standpoint should be good patient to proceed to surgery and she did receive Eliquis only about 24 hours ago, likely she may have hepatic insufficiency. We would re commend checking PT, PTT, and bilirubin in the morning. Ideally, we would like to wait at least 48 h ours after the Eliquis, perhaps longer if we feel like she has hepatic insufficiency. Her primary ca rdiologist I believe is Dr. Norton. We will ascertain this. If so, her primary daytime babysitter will see her tomorrow.
--- NOTE | 2018-06-11 01:25 | CON ---
DATE OF CONSULTATION: 06/10/2018 REASON FOR CONSULTATION: Abnormal liver function tests, possible choledocholithiasis. CONSULTING PHYSICIAN: Dr. José Roman. HISTORY OF PRESENT ILLNESS: The patient is a 67-year-old female with past medical history of atrial fibrillation on anticoagulation, aortic valve replacement presumably from aortic stenosis, hypothyroi dism, and hypertension, who presented with initial complaints of right upper quadrant abdominal pain and chest pain. She states that she was in her usual state of health until earlier today when she ex perienced acute onset of right upper quadrant abdominal pain characterized as a pressure/fullness-typ e pain was constant, would radiate to the mid epigastric and left upper quadrant and would reach a se verity of 10/10. The pain was worse with movement and increased physical activity; better with the a dministration of pain medications after admission. This was associated with increased nausea and vom iting with the vomiting of nonbloody emesis. This was not associated with any fevers, chills, diarrh ea, constipation, weight loss, odynophagia, or dysphagia. REVIEW OF SYSTEMS: A 10-category review of systems was obtained with all responses negative except f or the pertinent positives as listed in the HPI. PAST MEDICAL HISTORY: Atrial fibrillation, aortic valve replacement presumably from aortic stenosis, hypothyroidism, hypertension. PAST SURGICAL HISTORY: Aortic valve replacement in 03/2018, bilateral tubal ligation. FAMILY HISTORY: Denies any GI malignancies. SOCIAL HISTORY: Denies any tobacco, alcohol, or illicit drug use. OUTPATIENT MEDICATIONS: Reviewed. ALLERGIES: CODEINE. PHYSICAL EXAMINATION: VITAL SIGNS: Temperature 98.3, pulse 62, blood pressure 133/58, respiratory rate 16, satting 92% on room air. GENERAL: Patient lying in bed in no acute distress. Alert and oriented x4. NECK: Supple. No JVD noted. Mild scleral icterus noted. CARDIOVASCULAR: Regular rate and rhythm with no discernible murmurs, gallops, or rubs; however, ther e was a mild clicking sound at the first heart sound. RESPIRATORY: Clear to auscultation bilaterally with no discernible wheezes or rales. ABDOMEN: Normoactive bowel sounds, soft, nondistended, tenderness to palpation in the right upper qu adrant and mid epigastric regions. EXTREMITIES: No cyanosis, clubbing, or edema. LABORATORY DATA: CBC with a white blood cell count of 4.6, hemoglobin 10.6, hematocrit 31.8, platele ts 186. Chemistry with a sodium of 137, potassium 4.2, chloride 105, CO2 of 23, BUN 17, creatinine 0 .82, glucose 115. AST 717, ALT 510, alkaline phosphatase 169, total bilirubin 3.7. IMAGING DATA: Right upper quadrant abdominal ultrasound obtained on 06/10/2018 showed no intrahepati c dilatation. Multiple gallstones seen within the gallbladder, but the common bile duct also appeare d normal. MRCP obtained on 06/10/2018 showed the presence of filling defects within the gallbladder consistent with patient's cholelithiasis; however, the common bile duct was normal in caliber without filling defects. The pancreatic duct was also normal in caliber. There was an incidental finding o f a 9 mm well circumscribed focus within the head of the pancreas, which could represent a pseudocyst versus a cystic pancreatic neoplasm. ASSESSMENT AND PLAN: The patient is a 67-year-old female with past medical history of atrial fibrill ation on chronic anticoagulation, aortic stenosis, status post aortic valve replacement, hypothyroidi sm, and hyperlipidemia presenting with acute cholecystitis and initial labs concerning for choledocho lithiasis. Possible choledocholithiasis: The patient initially presented with increased right upper quadrant ab dominal pain radiating to the mid epigastric and left upper quadrant with a pressure/fullness-type pa in and 10/10 in severity. Upon evaluation of her initial labs, they did appear obstructive in nature with an elevated AST, ALT, and total bilirubin concerning for the presence of choledocholithiasis, e specially with the right upper quadrant ultrasound showing the presence of cholelithiasis. However, MRCP obtained on 06/10/2018 was able to visualize both the intra and extrahepatic ducts within the bi liary system did not show any significant abnormalities, thereby making the likelihood of choledochol ithiasis very low. RECOMMENDATIONS: 1. We would continue to monitor her LFTs during this admission. 2. Recommend proceeding with cholecystectomy as planned for acute cholecystitis without choledocholi thiasis. We will defer to General Surgery service as to the timing of this surgery in light of full anticoagulation. We will sign off at this time. Please call with any additional questions.
[2018-06-11] MEDS: Piperacillin/Tazobactam 3.375 GM in Sodium Chloride 0.9% 100 ML IVPB SCH ×3 (04:03→17:57)
[2018-06-11] MEDS: Lactated Ringer's 1,000 ML IV SCH ×2 (04:41→17:58)
[2018-06-11 05:29] LABS: #Eosinphils 0.1 thou/uL (0.0-0.7); #Monocytes 0.4 thou/uL (0.11-0.59); #Neutrophils 3.3 thou/uL (1.40-6.50); %Basophils 0.3 % (0.0-1.0); %Eosinophils 2.6 % (0.0-10.0); %Lymphocytes 20.5 % (21.0-51.0); %Monocytes 7.4 % (0.0-10.0); %Neutrophils 69.2 % (42.0-75.0); Mean Corpuscular HGB CONC 32.7 g/dL (32.0-36.0); Mean Corpuscular Hemoglobin 31.2 pg (27.0-31.0); Mean Corpuscular Volume 95.2 fL (78.0-98.0); Mean Platelet Volume 7.7 fL (7.4-10.4); Platelet Count 206 thou/uL (130-400); RBC Distribution Width 14.9 % (11.5-14.5); White Blood Cell (WBC) Count 4.8 thou/uL (4.8-10.8)
[2018-06-11 05:34] LABS: PTT 29.2 SEC (22.9-36.1)
[2018-06-11 05:35] LABS: INR-International Normal Ratio 1.4; Prothrombin Time 17.2 SEC (12.0-14.7)
[2018-06-11] MEDS: Levothyroxine Sodium 50 MCG TAB PO SCH (05:38)
[2018-06-11 05:41] LABS: ALT (SGPT) 329 U/L (8-55); AST (SGOT) 251 U/L (5-34); Albumin 3.7 g/dL (3.4-4.8); Alkaline Phosphatase 143 U/L (40-150); Anion Gap 9 mmol/L (10-20); BUN (Urea Nitrogen) 19 mg/dL (9.8-20.1); Calc. Creatinine Clearance 88 mL/min (70-130); Calcium 9.3 mg/dL (7.8-10.44); Carbon Dioxide 24 mmol/L (23-31); Chloride 109 mmol/L (98-107); Estimated GFR-MDRD 65; Globulin 2.7 g/dL (2.4-3.5); Glucose 98 mg/dL (80-115); Potassium 3.7 mmol/L (3.5-5.1); Protein, Total 6.4 g/dL (6.0-8.3); Sodium 138 mmol/L (136-145)
--- NOTE | 2018-06-11 07:24 | EKG ---
Test Reason : Blood Pressure : / mmHG Vent. Rate : 064 BPM Atrial Rate : 064 BPM P-R Int : 166 ms QRS Dur : 072 ms QT Int : 466 ms P-R-T Axes : 062 026 058 degrees QTc Int : 480 ms Normal sinus rhythm Possible Left atrial enlargement Nonspecific ST-T changes Prolonged QT Abnormal ECG When compared with ECG of 09-JUN-2018 23:08, (Unconfirmed) Nonspecific T wave abnormality now evident in Inferior leads Confirmed by DR. Musa GARCIA ([id number]) on 06/11/2018 7:24:32 AM Referred By: TIMOTEO Confirmed By:DR. Musa GARCIA
[2018-06-11] MEDS: Dronedarone HCl 400 MG TAB PO SCH ×3 (08:34→20:05)
[2018-06-11] MEDS: FLUoxetine HCl 20 MG CAP PO SCH (08:35)
[2018-06-11] MEDS: Ketorolac Tromethamine 30 MG/ML VIAL IVP PRN ×2 (08:35→18:08)
[2018-06-11] MEDS: Aspirin 81 mg Enteric Coated Tablet PO SCH (08:49)
[2018-06-11] MEDS ORDERED: FLUoxetine HCl 10 MG CAP PO SCH (09:00)
[2018-06-11] MEDS ORDERED: hydrALAZINE 25 MG TAB PO PRN (10:32)
[2018-06-11] MEDS ORDERED: HYDROcodone/Acetaminophen 10/325 mg Tablet PO SCH (10:45)
[2018-06-11] MEDS ORDERED: Dextrose 5 % And 0.9 % NaCl 1,000 ML IV SCH (11:00)
[2018-06-11] MEDS ORDERED: Fentanyl 100 MCG/2 ML VIAL ONE ×2 (11:51→14:50)
[2018-06-11] MEDS ORDERED: Midazolam HCl 2 mg/2 ml Vial ONE (11:52)
[2018-06-11] MEDS ORDERED: Iothalamate Meglumine 60% 50 ML VIAL FS ONE (12:50)
[2018-06-11] MEDS ORDERED: Bupivacaine HCl 0.5%/Epinephrine 1:200,000/PF 30 ml Vial ONE (12:50)
[2018-06-11] MEDS ORDERED: Vancomycin HCl 1 GM in Premix Bag 1 BAG IVPB SCH (13:00)
[2018-06-11] MEDS ORDERED: Ondansetron HCl/PF 4 MG/2 ML Vial IVP PRN (13:57)
[2018-06-11] MEDS ORDERED: Promethazine HCl 25 MG/ML VIAL IM PRN (13:57)
[2018-06-11] MEDS ORDERED: Promethazine HCl 25 MG/ML VIAL SLOW IVP PRN (13:57)
[2018-06-11] MEDS ORDERED: Ibuprofen 600 MG TAB PO PRN (14:17)
[2018-06-11] MEDS ORDERED: Acetaminophen 500 MG TAB PO PRN (14:17)
[2018-06-11] MEDS ORDERED: traMADol HCl 50 MG TAB PO PRN ×2 (14:17→14:23)
[2018-06-11] MEDS ORDERED: SUGAMMADEX SODIUM 200 MG/2 ML VIAL ONE (14:23)
--- NOTE | 2018-06-11 14:47 | RAD ---
XR CHOLANGIOGRAM IN SURGERY: COMPARISON: MRI prior date. FINDINGS: Two spot images from the operating room were obtained. Cystic duct is visualized. There is visualiz ation of the common bile duct. No intrahepatic or extrahepatic biliary dilatation. IMPRESSION: Fluoroscopy for surgical use. POS: NELLY
[2018-06-11] MEDS ORDERED: PROPOFOL 200 MG/20 ML VIAL ONE (14:59)
[2018-06-11] MEDS ORDERED: Lidocaine 1% PF 5 ML VIAL ONE (14:59)
[2018-06-11] MEDS ORDERED: Promethazine HCl 25 MG/ML VIAL ONE ×2 (15:29→16:23)
--- NOTE | 2018-06-11 16:10 | PDOC.PN ---
- Subjective Encounter Start Date: 06/11/18 Encounter Start Time: 12:00 Patient is seen today,alert and oriented. No other concerns noted. She was c/o headache - Objective Resuscitation Status: Resuscitation Status FULL:Full Resuscitation MAR Reviewed: Yes Vital Signs & Weight: Vital Signs (12 hours) Temp Pulse Resp BP Pulse Ox 06/11/18 12:00 98.3 F 78 18 104/60 92 L 06/11/18 08:35 98.0 F 63 16 93 L 06/11/18 08:00 98.0 F 63 16 197/77 H 93 L Weight Weight 191 lb 1.6 oz I&O: 06/10/18 06/11/18 06/12/18 06:59 06:59 06:59 Intake Total 218 1870 Balance 218 1870 Result Diagrams: 06/11/18 05:04 06/11/18 05:04 Radiology Reviewed by me: Yes Phys Exam - Physical Examination HEENT: PERRLA, moist MMs Neck: no nodes, no JVD Respiratory: no wheezing, no rales Cardiovascular: RRR, no significant murmur Gastrointestinal: soft, non-tender Musculoskeletal: no edema, pulses present Neurological: non-focal, normal sensation Psychiatric: normal affect, A&O x 3 Dx/Plan (1) Staphylococcus aureus bacteremia Code(s): R78.81 - BACTEREMIA Status: Acute Comment: Will get Echo TT, will r /o endocarditiis, Pt on Zosyn, Staph is not MRSA. Will need 2 weeks of PO Abx after sensistivties are available. (2) Acute cholecystitis Code(s): K81.0 - ACUTE CHOLECYSTITIS Status: Acute Comment: S/p Lap Choley, Discused with Surgery , pt is ok to be dischagred from surgical standpoint,. (3) Acute sinusitis Code(s): J01.90 - ACUTE SINUSITIS, UNSPECIFIED Status: Acute Qualifiers: Sinusitis location: frontal Comment: Will start pt on FLonase and Afrin, Continue to Monitor her headache. - Plan cont current plan of care, plan discussed w/ family, continue antibiotics, PT/OT , respiratory therapy, incentive spirometry, DVT proph w/SCDs * . Review of Systems - Review of Systems Eyes: negative: Pain, Vision Change, Conjunctivae Inflammation, Eyelid Inflammation, Redness, Other ENT: negative: Ear Pain, Ear Discharge, Nose Pain, Nose Discharge, Nose Congestion, Mouth Pain, Mouth Swelling, Throat Pain, Throat Swelling, Other Respiratory: negative: Cough, Dry, Shortness of Breath, Hemoptysis, SOB with Excertion, Pleuritic Pain, Sputum, Wheezing Cardiovascular: negative: chest pain, palpitations, orthopnea, paroxysmal nocturnal dyspnea, edema, light headedness, other Gastrointestinal: negative: Nausea, Vomiting, Abdominal Pain, Diarrhea, Constipation, Melena, Hematochezia, Other Genitourinary: negative: Dysuria, Frequency, Incontinence, Hematuria, Retention , Other Musculoskeletal: negative: Neck Pain, Shoulder Pain, Arm Pain, Back Pain, Hand Pain, Leg Pain, Foot Pain, Other - Medications/Allergies Allergies/Adverse Reactions: Allergies Allergy/AdvReac Type Severity Reaction Status Date / Time codeine Allergy Intermediate NAUSEA/VOMI Verified 06/10/18 06:33 TING Medications: Current Medications Acetaminophen (Tylenol) 1,000 mg PO Q6H PRN PRN Reason: Moderate to Severe Pain (6-10) Amoxicillin/Clavulanate Potassium (Augmentin) 500 mg PO Q12HR [facility] Aspirin (Ecotrin) 81 mg PO DAILY [facility] Last Admin: 06/11/18 08:49 Dose: Not Given Dronedarone (Multaq) 400 mg PO BID[facility] Last Admin: 06/11/18 08:34 Dose: 400 mg Fentanyl (Pacu-Sublimaze) 50 mcg SLOW IVP Q10MIN PRN PRN Reason: Moderate to Severe Pain (6-10) Stop: 06/11/18 16:57 Fluoxetine HCl (Prozac) 20 mg PO DAILY [facility] Last Admin: 06/11/18 08:35 Dose: 20 mg Fluticasone Propionate (Flonase Nasal Stokes) 0 gm NASAL BID [facility] Hydralazine HCl (Apresoline) 50 mg PO Q4H PRN PRN Reason: SBP > 160 Ibuprofen (Motrin) 600 mg PO Q6H PRN PRN Reason: Pain Iron/Minerals/Multivitamins (Theragran M) 1 tab PO DAILY [facility] Ketorolac Tromethamine (Toradol) 30 mg IVP Q6H PRN PRN Reason: Pain Stop: 06/15/18 11:55 Last Admin: 06/10/18 13:21 Dose: 30 mg Levothyroxine Sodium (Synthroid) 50 mcg PO QAM [facility] Last Admin: 06/11/18 05:38 Dose: 50 mcg Metoprolol Succinate (Toprol Xl) 100 mg PO DAILY [facility] Last Admin: 06/11/18 05:38 Dose: 100 mg Miscellaneous Medication (Pharmacy To Dose) 0 each IVPB PRN PRN PRN Reason: [facility] Pharmacy to Dose Morphine Sulfate (Morphine) 2 mg SLOW IVP Q4H PRN PRN Reason: Mild Pain (1-3) Morphine Sulfate (Morphine) 4 mg IV Q4H PRN PRN Reason: Moderate Pain (4-6) Multivitamins/Zinc (Stress 600 With Zinc) [facility] [place]dansetron HCl (Zofran Odt) 8 mg SL BID PRN PRN Reason: Nausea/Vomiting Ondansetron HCl (Zofran) 4 mg IVP Q4H PRN PRN Reason: Nausea/Vomiting Last Admin: 06/10/18 13:32 Dose: 4 mg Ondansetron HCl (Pacu-Zofran) 4 mg IVP ONE PRN PRN Reason: Nausea/Vomiting Stop: 06/11/18 16:57 Oxymetazoline HCl (Oxymetazoline Hcl) 1 sprays NASAL BID [facility] Promethazine HCl (Pacu-Phenergan) 6.25 mg SLOW IVP ONE PRN PRN Reason: Nausea/Vomiting Stop: 06/11/18 16:57 Promethazine HCl (Pacu-Phenergan) 6.25 mg IM ONE PRN PRN Reason: Nausea/Vomiting Stop: 06/11/18 16:57 Rosuvastatin Calcium (Crestor) 10 mg PO [facility] Sodium Chloride (Flush - Normal Saline) 10 ml IVF Q12HR [facility] Last Admin: 06/11/18 08:37 Dose: 10 ml Sodium Chloride (Flush - Normal Saline) 10 ml IVF PRN PRN PRN Reason: Saline Flush Tramadol HCl (Ultram) 50 mg PO Q6H PRN PRN Reason: Pain Tramadol HCl (Ultram) 100 mg PO Q6H PRN PRN Reason: Pain Tramadol HCl (Ultram) 50 mg PO Q6H PRN PRN Reason: Pain
[2018-06-11] MEDS: Ondansetron HCl/PF 4 MG/2 ML Vial IVP PRN (17:36)
--- NOTE | 2018-06-11 18:10 | OP ---
DATE OF PROCEDURE: 06/11/2018 PREOPERATIVE DIAGNOSES: Acute cholecystitis, cholelithiasis, elevated liver function test, negative MRCP yesterday on Eliquis, held for 36 hours preoperatively. POSTOPERATIVE DIAGNOSES: Acute cholecystitis, cholelithiasis, elevated liver function test, negative MRCP yesterday on Eliquis, held for 36 hours preoperatively. PROCEDURES PERFORMED: Laparoscopic video cholecystectomy, negative intraoperative cholangiogram usin g fluoroscopy. SURGEON: Dr. José Roman ANESTHESIA: General. Local 0.5% Marcaine with epinephrine 30 mL. PROCEDURE IN DETAIL: The patient was taken to the operating room under general anesthesia. Abdomen was prepared with ChloraPrep, draped in routine fashion. 0.5% Marcaine with epinephrine local anesth etic infiltrated into skin and subcutaneous tissues about each port site. Pneumoperitoneum to 15 mmH g were obtained with the Veress needle, placed an infraumbilical incision and then exchanged for a 5 mm port and video laparoscope inserted. Right subxiphoid incision made and 11 port placed. Right bliss bcostal incision made, mid clavicular anterior axillary lines of 5 mm ports placed. Liver appeared t o be normal. Some filmy adhesions taken down sharply to allow reflection of the liver. Gallbladder wall was thickened, edematous and acutely inflamed. Fundus of gallbladder grasped and reflected ceph alad. It was then grafted to laterally. Cystic artery and duct dissected free. Critical view obtai wilber. Cystic artery double clipped proximally. Cystic duct singly clipped on the gallbladder side. Opening made in the cystic duct, cholangiocath inserted and cholangiogram was obtained using fluorosc opy revealing free flow of contrast into the duodenum without the filling defects and a nondilated co mmon hepatic, common bile, left and right hepatic ducts. Cholangiocath removed. Cystic duct stump d oubly clipped and divided and gallbladder dissected free from the liver bed obtaining good hemostasis prior to division of final peritoneal attachments. Keshav placed in liver bed to assure good hemost asis. Excellent hemostasis achieved. Irrigant and pneumoperitoneum evacuated. All instruments barb brittny and all skin incisions approximated with interrupted subdermal 4-0 Monocryl and DermaGlue applied . The patient tolerated the procedure well without complications.
[2018-06-11] MEDS ORDERED: Acetaminophen 1,000 MG in Premix Bag 1 BAG IVPB PRN (18:52)
[2018-06-11] MEDS ORDERED: Acetaminophen 1,000 MG in Premix Bag 1 BAG IVPB SCH (19:00)
[2018-06-11] MEDS: Rosuvastatin 10 MG TAB PO SCH (21:33)
[2018-06-11] MEDS: Amoxicillin/Potassium Clav 500 MG TAB PO SCH (21:33)
[2018-06-11] MEDS: Fluticasone Propionate Nasal Spray 16 gm Bottle NASAL SCH (21:33)
[2018-06-11] MEDS: Oxymetazoline HCl 0.05% ( 15 ML ) NASAL SCH (21:34)
--- NOTE | 2018-06-11 21:53 | DIS ---
DATE OF ADMISSION: 06/10/2018 DATE OF DISCHARGE: 06/11/2018 DISCHARGE DIAGNOSES: Acute cholecystitis, elevated liver function test, history of prosthetic aortic valve earlier this year. PROCEDURES DURING THIS HOSPITALIZATION: Ultrasound of the gallbladder revealing gallstones, normal c aliber bile duct on admission. Surgery delayed due to waiting Eliquis resolution. Elevated liver fu nction test revealed absence of choledocholithiasis. She has very small cyst on the head of the panc reas, probably benign, followup scan or endoscopic ultrasound recommended in the future. Laparoscopi c video cholecystectomy performed on the day of discharge. Cholangiogram was normal. DISCHARGE MEDICATIONS: [id number] Tylenol; ibuprofen p.r.n. pain; Ultram p.r.n. pain, #21, 2 r efills given. Resume home medications. Crestor, multivitamin, metoprolol, levothyroxine, Prozac, Mu ltaq, aspirin. Resume Eliquis Thursday morning on 06/13/2018. FOLLOWUP: Follow up with Dr. Roman in 2-3 weeks. DIET AND ACTIVITY: As tolerated, otherwise. HISTORY: A 67-year-old female with biliary symptoms for several years, presents with acute episode. Ultrasound revealing the above findings. Surgery delayed due to allowing resolution of Eliquis. MR CP obtained because of elevated liver function test, was normal. Dr. Avelar saw her in consultation. The patient underwent laparoscopic video cholecystectomy, cholangiogram and postoperatively did well and discharged home with the above regimen.
[2018-06-11] MEDS: traMADol HCl 50 MG TAB PO PRN (22:16)
[2018-06-11 22:17] LABS: #Lymphocytes 0.4 thou/uL (1.20-3.40); #Monocytes 0.5 thou/uL (0.11-0.59); #Neutrophils 8.5 thou/uL (1.40-6.50); %Basophils 0.2 % (0.0-1.0); %Eosinophils 0.1 % (0.0-10.0); %Lymphocytes 3.9 % (21.0-51.0); %Neutrophils 90.8 % (42.0-75.0); Hemoglobin 11.6 g/dL (12.0-16.0); Mean Corpuscular HGB CONC 32.8 g/dL (32.0-36.0); Mean Corpuscular Hemoglobin 30.9 pg (27.0-31.0); Mean Corpuscular Volume 94.2 fL (78.0-98.0); Mean Platelet Volume 7.6 fL (7.4-10.4); Platelet Count 229 thou/uL (130-400); RBC Distribution Width 14.8 % (11.5-14.5); Red Blood Cell (RBC) Count 3.77 mill/uL (4.20-5.40); White Blood Cell (WBC) Count 9.3 thou/uL (4.8-10.8)
[2018-06-11 23:01] LABS: ALT (SGPT) 475 U/L (8-55); AST (SGOT) 504 U/L (5-34); Albumin 4.3 g/dL (3.4-4.8); Alkaline Phosphatase 197 U/L (40-150); Anion Gap 15 mmol/L (10-20); BUN (Urea Nitrogen) 17 mg/dL (9.8-20.1); Bilirubin, Total 3.9 mg/dL (0.2-1.2); Calc. Creatinine Clearance 88 mL/min (70-130); Calcium 9.5 mg/dL (7.8-10.44); Carbon Dioxide 20 mmol/L (23-31); Chloride 105 mmol/L (98-107); Estimated GFR-MDRD 65; Globulin 3.3 g/dL (2.4-3.5); Glucose 147 mg/dL (80-115); Potassium 4.1 mmol/L (3.5-5.1); Protein, Total 7.6 g/dL (6.0-8.3); Sodium 136 mmol/L (136-145)
[2018-06-12] MEDS: Dronedarone HCl 400 MG TAB PO SCH ×2 (08:26→16:09)
[2018-06-12] MEDS: Multivitamin W/ Minerals 1 TAB PO SCH (08:26)
[2018-06-12] MEDS: Stress 600 With Zinc 1 TAB PO SCH (08:26)
[2018-06-12] MEDS: FLUoxetine HCl 20 MG CAP PO SCH (08:26)
[2018-06-12] MEDS: Amoxicillin/Potassium Clav 500 MG TAB PO SCH ×2 (08:26→21:04)
[2018-06-12] MEDS: Aspirin 81 mg Enteric Coated Tablet PO SCH (08:26)
[2018-06-12] MEDS: Levothyroxine Sodium 50 MCG TAB PO SCH (08:26)
[2018-06-12] MEDS: Fluticasone Propionate Nasal Spray 16 gm Bottle NASAL SCH ×2 (08:29→21:07)
[2018-06-12] MEDS: Oxymetazoline HCl 0.05% ( 15 ML ) NASAL SCH ×2 (08:29→21:07)
--- NOTE | 2018-06-12 08:40 | PDOC.CTH ---
<Karlee Wilson - Last Filed: 06/12/18 10:51> Cardiology Progress Note - Subjective The pt seen and examined. No overnight events. No cardiac complaints. She cont. having intermittent pain which required Morphine IV this AM. She was already encouraged to move more and use PO pain med by her RN. - Objective Vital Signs Temp Pulse Resp BP Pulse Ox 06/12/18 07:37 97.5 F L 62 16 209/74 H 98 06/12/18 03:58 96 06/12/18 03:31 97.5 F L 68 16 146/68 H 96 06/11/18 23:50 97.7 F 67 16 196/85 H 92 L 06/11/18 21:39 134/74 Admit Weight 191 lb 1.6 oz Weight 191 lb 1.6 oz 06/11/18 06/12/18 06/13/18 06:59 06:59 06:59 Intake Total 218 2070 Balance 218 2070 - Physical Examination General/Neuro: alert & oriented x3 Neck: no JVD present Lungs: CTA (diminished at bases) Heart: RRR Abdomen: soft Extremities: other: (No edema) - Telemetry Telemetry Rhythm: SR 60-70s - Labs Result Diagrams: 06/11/18 22:09 06/11/18 22:09 Troponin/CKMB CK-MB (CK-2) 0.5 ng/mL (0-6.6) 06/09/18 23:26 Troponin I Less than 0.010 ng/mL (< 0.028) 06/09/18 23:26 - Assessment/Plan 1. S/p EX lap Adela on 06/11/18 - Cont. having intermittent pain which required Morphine this AM. RN already encouraged the pt to start moving and using PO pain medication. 2. S/p AVR in 03/2018 - Echo on 06/11/18 showed Normal bioprosthetic aortic valve with EF 55-60%, trace AI, mildly dilated LA, and mild elevated PAP 3. HTN - elevated. May resume one those medication: Lisinopril/HCTZ 20/12.5mg, Hydralazine 25mg bid, or increase Metoprolol from 100mg to 200mg QD. 4. Paroxysmal afib in 04/2018 - Remains in SR during this admission. On Multaq and Metoprolol. Will resume Eliquis once she is cleared by surgeon. 5. DM type 2 - stable 6. Hyperlipidemia - managed by PCP 7. Hypothyroidism - On statin 8. S/p staphylococcus aureus bacteremia - MAR reviewed * Eliquis will be resumed within 2-3 days. <Addendum> * Her BP was 169/74 after Metoprolol was given. Start Lisinopril 10mg qd. Review of Systems - Review of Systems Constitutional: reports: see HPI EENTM: reports: no symptoms reported Respiratory: reports: no symptoms reported Cardiac (ROS): reports: no symptoms reported ABD/GI: reports: see HPI : reports: no symptoms reported Musculoskeletal: reports: no symptoms reported <Ramon Conteh - Last Filed: 06/12/18 12:35> Cardiology Progress Note - Objective Vital Signs Temp Pulse Resp BP BP Pulse Ox 06/12/18 11:39 98.0 F 67 16 159/68 H 98 06/12/18 09:09 169/74 H 06/12/18 08:00 97.5 F L 62 16 06/12/18 07:37 97.5 F L 62 16 209/74 H 98 06/12/18 03:58 96 06/12/18 03:31 97.5 F L 68 16 146/68 H 96 Admit Weight 191 lb 1.6 oz Weight 191 lb 1.6 oz 06/11/18 06/12/18 06/13/18 06:59 06:59 06:59 Intake Total 218 2070 Balance 218 2070 - Labs Result Diagrams: 06/11/18 22:09 06/12/18 11:49 Troponin/CKMB CK-MB (CK-2) 0.5 ng/mL (0-6.6) 06/09/18 23:26 Troponin I Less than 0.010 ng/mL (< 0.028) 06/09/18 23:26 - Assessment/Plan Pt. seen and eval. by me. I agree with Navid/P by the [employer]. Chest clear. RRR.
[2018-06-12] MEDS ORDERED: Lisinopril 10 MG TAB PO SCH (11:00)
[2018-06-12 12:18] LABS: ALT (SGPT) 349 U/L (8-55); AST (SGOT) 258 U/L (5-34); Acetaminophen Less than 6.0 mcg/mL (10.0-30.0); Albumin 3.9 g/dL (3.4-4.8); Alkaline Phosphatase 182 U/L (40-150); Anion Gap 15 mmol/L (10-20); BUN (Urea Nitrogen) 19 mg/dL (9.8-20.1); Bilirubin, Total 3.2 mg/dL (0.2-1.2); Calc. Creatinine Clearance 94 mL/min (70-130); Calcium 9.5 mg/dL (7.8-10.44); Carbon Dioxide 20 mmol/L (23-31); Chloride 104 mmol/L (98-107); Estimated GFR-MDRD 70; Globulin 3.2 g/dL (2.4-3.5); Glucose 143 mg/dL (80-115); Potassium 4.2 mmol/L (3.5-5.1); Protein, Total 7.1 g/dL (6.0-8.3); Sodium 135 mmol/L (136-145)
--- NOTE | 2018-06-12 14:14 | PDOC.PN ---
- Subjective Encounter Start Date: 06/12/18 Encounter Start Time: 11:00 Shaunna is seen today, alert and Oriented. Asking for pain medication due to abdominal pain, she has elevated liver enzymes, discussed with Dr. Avelar, he said it is from Staph Arous causing elevation of liver enzymes. and pt was on Tylenol drip, held that. - Objective Resuscitation Status: Resuscitation Status FULL:Full Resuscitation MAR Reviewed: Yes Vital Signs & Weight: Vital Signs (12 hours) Temp Pulse Resp BP BP Pulse Ox 06/12/18 11:39 98.0 F 67 16 159/68 H 98 06/12/18 09:09 169/74 H 06/12/18 08:00 97.5 F L 62 16 06/12/18 07:37 97.5 F L 62 16 209/74 H 98 06/12/18 03:58 96 06/12/18 03:31 97.5 F L 68 16 146/68 H 96 Weight Admit Weight 191 lb 1.6 oz Weight 191 lb 1.6 oz I&O: 06/11/18 06/12/18 06/13/18 06:59 06:59 06:59 Intake Total 218 2070 Balance 218 2070 Result Diagrams: 06/11/18 22:09 06/12/18 11:49 Radiology Reviewed by me: Yes EKG Reviewed by me: Yes Phys Exam - Physical Examination HEENT: PERRLA, moist MMs Neck: no nodes, no JVD Respiratory: no wheezing, no rales Cardiovascular: RRR, no significant murmur Gastrointestinal: soft, non-tender reduced bowel Sounds Musculoskeletal: no edema, pulses present Neurological: non-focal, normal sensation Skin: no rash, normal turgor Dx/Plan (1) Staphylococcus aureus bacteremia Code(s): R78.81 - BACTEREMIA Status: Acute Comment: Repeat BC neg so far, Echo Normal, no vegetation per cardiology, , No ERAN recommeded by cardiology. Dr. Conteh confirmed it. (2) Acute cholecystitis Code(s): K81.0 - ACUTE CHOLECYSTITIS Status: Acute Comment: S/p Lap Choley, Discused with Surgery , pt is ok to be dischagred from surgical standpoint,.Pt has No BM, No gas, she is tolerating clear liquids. Persistant epigastric pain, with bloating, will do carafate and gaasex. (3) Acute sinusitis Code(s): J01.90 - ACUTE SINUSITIS, UNSPECIFIED Status: Acute Qualifiers: Sinusitis location: frontal Comment: Will start pt on FLonase and Afrin, Continue to Monitor her headache. (4) Elevated liver enzymes Code(s): R74.8 - ABNORMAL LEVELS OF OTHER SERUM ENZYMES Status: Acute Comment: Discussed with Dr. Avelar, persistant elevation, with normal MRCP. Gi believes it is from Staph bacteremia. Will avoid Tylnol, , check Tylenol elevs as pt is on Tyleno infusion for pain. - Plan cont current plan of care, plan discussed w/ family, continue antibiotics, PT/OT , speech therapy, respiratory therapy, incentive spirometry, DVT proph w/SCDs * . Review of Systems - Review of Systems Constitutional: negative: fever, chills, sweats, weakness, malaise, other Eyes: negative: Pain, Vision Change, Conjunctivae Inflammation, Eyelid Inflammation, Redness, Other ENT: negative: Ear Pain, Ear Discharge, Nose Pain, Nose Discharge, Nose Congestion, Mouth Pain, Mouth Swelling, Throat Pain, Throat Swelling, Other Respiratory: negative: Cough, Dry, Shortness of Breath, Hemoptysis, SOB with Excertion, Pleuritic Pain, Sputum, Wheezing Cardiovascular: negative: chest pain, palpitations, orthopnea, paroxysmal nocturnal dyspnea, edema, light headedness, other Gastrointestinal: Abdominal Pain Genitourinary: negative: Dysuria, Frequency, Incontinence, Hematuria, Retention , Other Musculoskeletal: negative: Neck Pain, Shoulder Pain, Arm Pain, Back Pain, Hand Pain, Leg Pain, Foot Pain, Other Skin: negative: Rash, Lesions, Prince, Bruising, Other - Medications/Allergies Allergies/Adverse Reactions: Allergies Allergy/AdvReac Type Severity Reaction Status Date / Time codeine Allergy Intermediate NAUSEA/VOMI Verified 06/10/18 06:33 TING Medications: Current Medications Amoxicillin/Clavulanate Potassium (Augmentin) 500 mg PO Q12HR [facility] Last Admin: 06/12/18 08:26 Dose: 500 mg Aspirin (Ecotrin) 81 mg PO DAILY [facility] Last Admin: 06/12/18 08:26 Dose: 81 mg Dronedarone (Multaq) 400 mg PO BID[facility] Last Admin: 06/12/18 08:26 Dose: 400 mg Fluoxetine HCl (Prozac) 20 mg PO DAILY [facility] Last Admin: 06/12/18 08:26 Dose: 20 mg Fluticasone Propionate (Flonase Nasal Lyles) 0 gm NASAL BID [facility] Last Admin: 06/12/18 08:29 Dose: 1 spr Hydralazine HCl (Apresoline) 50 mg PO Q4H PRN PRN Reason: SBP > 160 Ibuprofen (Motrin) 600 mg PO Q6H PRN PRN Reason: Pain Iron/Minerals/Multivitamins (Theragran M) 1 tab PO DAILY [facility] Last Admin: 06/12/18 08:26 Dose: 1 tab Ketorolac Tromethamine (Toradol) 30 mg IVP Q6H PRN PRN Reason: Pain Stop: 06/15/18 11:55 Last Admin: 06/11/18 18:08 Dose: 30 mg Levothyroxine Sodium (Synthroid) [facility] [place] Last Admin: 06/12/18 08:26 Dose: 50 mcg Lisinopril (Zestril) 10 mg PO DAILY [facility] Metoprolol Succinate (Toprol Xl) 100 mg PO DAILY [facility] Last Admin: 06/12/18 08:26 Dose: 100 mg Morphine Sulfate (Morphine) 2 mg SLOW IVP Q4H PRN PRN Reason: Mild Pain (1-3) Last Admin: 06/11/18 18:57 Dose: 2 mg Morphine Sulfate (Morphine) 4 mg IVP Q4H PRN PRN Reason: Moderate Pain (4-6) Last Admin: 06/12/18 11:51 Dose: 4 mg Multivitamins/Zinc (Stress 600 With Zinc) [facility] [place] Last Admin: 06/12/18 08:26 Dose: 1 tab Ondansetron HCl (Zofran Odt) 8 mg SL BID PRN PRN Reason: Nausea/Vomiting Ondansetron HCl (Zofran) 4 mg IVP Q4H PRN PRN Reason: Nausea/Vomiting Last Admin: 06/11/18 17:36 Dose: 4 mg Oxymetazoline HCl (Oxymetazoline Hcl) 1 sprays NASAL BID [facility] Last Admin: 06/12/18 08:29 Dose: 1 spr Rosuvastatin Calcium (Crestor) 10 mg PO HS [facility] Last Admin: 06/11/18 21:33 Dose: 10 mg Simethicone (Mylicon Chewable) 80 mg PO Q6H PRN PRN Reason: Gas Pain Sodium Chloride (Flush - Normal Saline) 10 ml IVF Q12HR [facility] Last Admin: 06/12/18 08:27 Dose: 10 ml Sodium Chloride (Flush - Normal Saline) 10 ml IVF PRN PRN PRN Reason: Saline Flush Tramadol HCl (Ultram) 50 mg PO Q6H PRN PRN Reason: Pain Last Admin: 06/12/18 08:44 Dose: 50 mg Tramadol HCl (Ultram) 100 mg PO Q6H PRN PRN Reason: Pain Last Admin: 06/11/18 22:16 Dose: 100 mg
[2018-06-12] MEDS: Simethicone Chewable 80 MG TAB PO PRN (14:43)
[2018-06-12] MEDS: traMADol HCl 50 MG TAB PO PRN ×2 (14:43→21:04)
[2018-06-12] MEDS ORDERED: Bisacodyl 10 MG SUPP PR PRN (16:55)
[2018-06-12] MEDS: D5 1/2 NS w/20 mEq KCL 1,000 ML IV SCH (17:15)
--- NOTE | 2018-06-12 18:44 | TCOM ---
HISTORY OF PRESENT ILLNESS: The patient reports that she is still having quite a bit of pain describ ed as 8/10, mainly in the epigastric and right upper quadrant. She has not passed any flatus. She i s nauseated. She is having difficulty taking p.o. PHYSICAL EXAMINATION: VITAL SIGNS: Her temperature is 98.7, pulse 72, blood pressure 155/65. GENERAL: She is awake. She does appear uncomfortable. ABDOMEN: Rubbing her belly, her abdomen is distended, rare bowel sounds. Incisions look fine. ASSESSMENT: Postoperative ileus. Of note, her laboratory, her electrolytes show still an elevated b ilirubin at 3.2, AST of 258, ALT at 249, alkaline phosphatase 182. IMPRESSION: Ileus. PLAN: Resume IV fluids, minimize p.o. intake, trial of Dulcolax suppository.
--- NOTE | 2018-06-12 20:13 | EKG ---
Test Reason : Blood Pressure : / mmHG Vent. Rate : 066 BPM Atrial Rate : 066 BPM P-R Int : 152 ms QRS Dur : 070 ms QT Int : 454 ms P-R-T Axes : 048 036 061 degrees QTc Int : 475 ms Normal sinus rhythm Possible Left atrial enlargement Nonspecific T wave abnormality Abnormal ECG Confirmed by GIULIANA YOUSSEF ([id number]), general expeditor HAMLET BECK ([id number] on 06/12/2018 8:13:26 PM Referred By: Confirmed By:GIULIANA YOUSSEF
[2018-06-12] MEDS: Rosuvastatin 10 MG TAB PO SCH (21:04)
--- NOTE | 2018-06-13 01:49 | PRG ---
DATE OF SERVICE: 06/12/2018 REASON FOR CONSULTATION: Abnormal LFTs. SUBJECTIVE: The patient underwent laparoscopic cholecystectomy yesterday and did have some relativel y increased abdominal pain overnight. That was not managed by her current pain medication regimen. However, later today, she was changed in terms of her pain medications and at the time of this interv iew had minimal abdominal pain. She did also complain of some increased left neck pain after the rem oval of the central line from that region, but was currently doing well with the pain medication jarvis men as well as an ice pack to the region. Currently, denies any nausea, vomiting, fevers, chills or GI bleeding. OBJECTIVE: VITAL SIGNS: Temperature 98.3, pulse 66, blood pressure 181/78, respiratory rate 18, satting 96% on 2 liters nasal cannula. GENERAL: The patient was lying in bed, in no acute distress. Alert and oriented x4. CARDIOVASCULAR: Regular rate and rhythm. RESPIRATORY: Clear to auscultation bilaterally. ABDOMEN: Normoactive bowel sounds, soft, nondistended. Tenderness to palpation in the right upper q uadrant and mid epigastric regions. EXTREMITIES: No cyanosis, clubbing or edema. LABORATORY DATA: CBC with a white blood cell count of 9.3, hemoglobin 11.6, hematocrit 35.5, platele ts 229. INR 1.4. Chemistry with a sodium of 135, potassium 4.2, chloride 104, CO2 of 20, BUN 19, cr eatinine 0.82, glucose 143, AST 258, ALT 349, alkaline phosphatase 182, total bilirubin 3.2. IMAGING DATA: MRCP obtained on 06/10/2018 did not show the presence of choledocholithiasis with a no rmal caliber to the common bile duct. However, there was a 9-mm well circumscribed lesion within the head of the pancreas, which could represent a pseudocyst or cystic pancreatic neoplasm. She subsequ ently underwent laparoscopic cholecystectomy on 06/11/2018 with intraoperative cholangiogram negative for filling defects or choledocholithiasis. ASSESSMENT AND PLAN: The patient is a 67-year-old female with past medical history of atrial fibrill ation, on chronic anticoagulation; aortic stenosis, status post aortic valve replacement; hypothyroid ism; and hyperlipidemia; presenting with acute cholecystitis and abnormal liver function tests. Abnormal liver function tests: The patient initially presented with increased right upper quadrant a bdominal pain with labs and imaging concerning for possible obstructive process. However, she underw ent MRCP during this admission with no evidence of choledocholithiasis. There was echoed on the intr aoperative cholangiogram during laparoscopic cholecystectomy. However, in the post-cholecystectomy p eriod, she does continue to have significantly elevated liver function tests, primarily within a hepa tocellular distribution, but have been downtrending over the last 24-48 hours. At this time, given t he temporal relationship of the increase in her LFTs shortly after the cholecystectomy, the instrumen tation of the gallbladder in relation to the liver itself could potentially generate these increases in her LFTs. She was also noted to have one blood culture positive for Staphylococcus aureus while t he other was negative, which does raise some concern for possible skin contaminant, but Staphylococcu s aureus bacteremia could potentially cause elevated LFTs as well (albeit I think it is unlikely give n the probability of skin contaminant). At this time, the more likely reason for her continued eleva tion in LFTs would be significant inflammation associated with cholecystitis and residual inflammatio n related to that particular condition. RECOMMENDATIONS: 1. I would continue to trend her LFTs during this admission. If continue to downtrend tomorrow, I w ould think this be more due to the surgical procedure and recent cholecystitis rather than Staphyloco ccus aureus bacteremia. 2. Continue to monitor clinically for signs of hepatic injury or failure. We will continue to follow. Please call with any additional questions.
[2018-06-13] MEDS: D5 1/2 NS w/20 mEq KCL 1,000 ML IV SCH ×2 (04:27→16:09)
[2018-06-13] MEDS: traMADol HCl 50 MG TAB PO PRN (04:28)
[2018-06-13 08:28] LABS: #Eosinphils 0.1 thou/uL (0.0-0.7); #Lymphocytes 0.8 thou/uL (1.20-3.40); #Monocytes 0.7 thou/uL (0.11-0.59); #Neutrophils 11.1 thou/uL (1.40-6.50); %Basophils 0.1 % (0.0-1.0); %Lymphocytes 6.2 % (21.0-51.0); %Monocytes 5.9 % (0.0-10.0); %Neutrophils 86.9 % (42.0-75.0); Hemoglobin 10.1 g/dL (12.0-16.0); Mean Corpuscular HGB CONC 32.1 g/dL (32.0-36.0); Mean Corpuscular Hemoglobin 30.4 pg (27.0-31.0); Mean Corpuscular Volume 94.7 fL (78.0-98.0); Mean Platelet Volume 7.5 fL (7.4-10.4); Platelet Count 192 thou/uL (130-400); Red Blood Cell (RBC) Count 3.32 mill/uL (4.20-5.40); White Blood Cell (WBC) Count 12.7 thou/uL (4.8-10.8)
[2018-06-13 08:49] LABS: ALT (SGPT) 228 U/L (8-55); AST (SGOT) 102 U/L (5-34); Albumin 3.5 g/dL (3.4-4.8); Alkaline Phosphatase 165 U/L (40-150); Anion Gap 11 mmol/L (10-20); BUN (Urea Nitrogen) 21 mg/dL (9.8-20.1); Calc. Creatinine Clearance 111 mL/min (70-130); Calcium 9.2 mg/dL (7.8-10.44); Carbon Dioxide 23 mmol/L (23-31); Chloride 103 mmol/L (98-107); Estimated GFR-MDRD 85; Globulin 2.9 g/dL (2.4-3.5); Glucose 160 mg/dL (80-115); Potassium 4.2 mmol/L (3.5-5.1); Protein, Total 6.4 g/dL (6.0-8.3); Sodium 133 mmol/L (136-145)
[2018-06-13] MEDS: Amoxicillin/Potassium Clav 500 MG TAB PO SCH ×2 (08:51→20:38)
[2018-06-13] MEDS: Stress 600 With Zinc 1 TAB PO SCH (08:51)
[2018-06-13] MEDS: Dronedarone HCl 400 MG TAB PO SCH ×2 (08:52→16:07)
[2018-06-13] MEDS: Multivitamin W/ Minerals 1 TAB PO SCH (08:52)
[2018-06-13] MEDS: Levothyroxine Sodium 50 MCG TAB PO SCH (08:52)
[2018-06-13] MEDS: Aspirin 81 mg Enteric Coated Tablet PO SCH (08:52)
[2018-06-13] MEDS: FLUoxetine HCl 20 MG CAP PO SCH (08:55)
[2018-06-13] MEDS: Fluticasone Propionate Nasal Spray 16 gm Bottle NASAL SCH ×2 (08:55→20:37)
[2018-06-13] MEDS: Oxymetazoline HCl 0.05% ( 15 ML ) NASAL SCH ×3 (08:56→20:37)
[2018-06-13] MEDS ORDERED: Lisinopril 10 MG TAB PO SCH ×2 (09:00→11:30)
--- NOTE | 2018-06-13 10:32 | PDOC.PN ---
- Subjective Encounter Start Date: 06/13/18 Encounter Start Time: 07:30 -: old records requested/rev pt is very weak, has poor apatite, feels bloated, no BM or passing gas - Objective Resuscitation Status: Resuscitation Status FULL:Full Resuscitation MAR Reviewed: Yes Vital Signs & Weight: Vital Signs (12 hours) Temp Pulse Resp BP BP Pulse Ox 06/13/18 08:52 184/80 H 06/13/18 07:25 98.5 F 70 16 178/72 H 94 L 06/13/18 03:57 98.2 F 65 16 150/67 H 96 06/13/18 00:10 98.2 F 70 16 163/68 H 93 L Weight Admit Weight 191 lb 1.6 oz Weight 191 lb 1.6 oz I&O: 06/12/18 06/13/18 06/14/18 06:59 06:59 06:59 Intake Total 2070 1616 Balance 2070 1616 Result Diagrams: 06/13/18 08:12 06/13/18 08:11 Radiology Reviewed by me: Yes EKG Reviewed by me: Yes Phys Exam - Physical Examination Constitutional: NAD HEENT: PERRLA, moist MMs, sclera anicteric Neck: no JVD, supple Respiratory: no wheezing, no rales, no rhonchi Cardiovascular: RRR, no significant murmur, no rub Gastrointestinal: soft, no distention, positive bowel sounds hypoactive bowel sound Musculoskeletal: no edema, pulses present Neurological: non-focal, normal sensation, moves all 4 limbs Psychiatric: normal affect, A&O x 3 Skin: no rash, normal turgor Dx/Plan (1) Acute cholecystitis Code(s): K81.0 - ACUTE CHOLECYSTITIS Status: Acute Comment: s/p lap niraj (2) Acute sinusitis Code(s): J01.90 - ACUTE SINUSITIS, UNSPECIFIED Status: Acute Qualifiers: Sinusitis location: frontal Comment: (3) Elevated liver enzymes Code(s): R74.8 - ABNORMAL LEVELS OF OTHER SERUM ENZYMES Status: Acute Comment: (4) Ileus following gastrointestinal surgery Code(s): K91.30 - POSTPROC INTESTINAL OBST, UNSP TO PARTIAL VERSUS COMPLETE Status: Acute (5) Staphylococcus aureus bacteremia Code(s): R78.81 - BACTEREMIA Status: Acute Comment: (6) H/O aortic valve replacement with porcine valve Code(s): Z95.3 - PRESENCE OF XENOGENIC HEART VALVE Status: Chronic (7) Hypothyroidism Code(s): E03.9 - HYPOTHYROIDISM, UNSPECIFIED Status: Chronic (8) Obesity (BMI 30.0-34.9) Code(s): E66.9 - OBESITY, UNSPECIFIED Status: Chronic (9) Paroxysmal A-fib Code(s): I48.0 - PAROXYSMAL ATRIAL FIBRILLATION Status: Chronic - Plan cont current plan of care, plan discussed w/ family, continue antibiotics * medication reviewed as below * symptomatic treatment * continue supportive care * surgeon following * discussed with family * diet as tolerated, will defer to surgeon. Review of Systems - Review of Systems Constitutional: weakness. negative: fever, chills, sweats, malaise, other Eyes: negative: Pain, Vision Change, Conjunctivae Inflammation, Eyelid Inflammation, Redness, Other ENT: negative: Ear Pain, Ear Discharge, Nose Pain, Nose Discharge, Nose Congestion, Mouth Pain, Mouth Swelling, Throat Pain, Throat Swelling, Other Respiratory: negative: Cough, Dry, Shortness of Breath, Hemoptysis, SOB with Excertion, Pleuritic Pain, Sputum, Wheezing Cardiovascular: negative: chest pain, palpitations, orthopnea, paroxysmal nocturnal dyspnea, edema, light headedness, other Gastrointestinal: Nausea, Abdominal Pain. negative: Vomiting, Diarrhea, Constipation, Melena, Hematochezia, Other Genitourinary: negative: Dysuria, Frequency, Incontinence, Hematuria, Retention , Other Musculoskeletal: negative: Neck Pain, Shoulder Pain, Arm Pain, Back Pain, Hand Pain, Leg Pain, Foot Pain, Other Skin: negative: Rash, Lesions, Prince, Bruising, Other - Medications/Allergies Allergies/Adverse Reactions: Allergies Allergy/AdvReac Type Severity Reaction Status Date / Time codeine Allergy Intermediate NAUSEA/VOMI Verified 06/10/18 06:33 TING Medications: Current Medications Amoxicillin/Clavulanate Potassium (Augmentin) 500 mg PO Q12HR [facility] Last Admin: 06/13/18 08:51 Dose: 500 mg Aspirin (Ecotrin) 81 mg PO DAILY [facility] Last Admin: 06/13/18 08:52 Dose: 81 mg Bisacodyl (Dulcolax) 10 mg HI DAILYPRN PRN PRN Reason: Constipation Last Admin: 06/12/18 17:15 Dose: 10 mg Dronedarone (Multaq) 400 mg PO BID-[facility] Last Admin: 06/13/18 08:52 Dose: 400 mg Fluoxetine HCl (Prozac) 20 mg PO DAILY [facility] Last Admin: 06/13/18 08:55 Dose: 20 mg Fluticasone Propionate (Flonase Nasal Roberts) 0 gm NASAL BID [facility] Last Admin: 06/13/18 08:55 Dose: 1 spr Hydralazine HCl (Apresoline) 50 mg PO Q4H PRN PRN Reason: SBP > 160 Potassium Chloride/Dextrose/Sod Cl (D5 1/2 Ns W/20 Meq Kcl) 1,000 mls @ 100 mls /hr IV .Q10H [facility] Last Admin: 06/13/18 04:27 Dose: 1,000 mls Ibuprofen (Motrin) 600 mg PO Q6H PRN PRN Reason: Pain Iron/Minerals/Multivitamins (Theragran M) 1 tab PO DAILY [facility] Last Admin: 06/13/18 08:52 Dose: 1 tab Ketorolac Tromethamine (Toradol) 30 mg IVP Q6H PRN PRN Reason: Pain Stop: 06/15/18 11:55 Last Admin: 06/11/18 18:08 Dose: 30 mg Levothyroxine Sodium (Synthroid) [facility] [place] Last Admin: 06/13/18 08:52 Dose: 50 mcg Lisinopril (Zestril) 10 mg PO DAILY [facility] Last Admin: 06/13/18 08:52 Dose: 10 mg Metoprolol Succinate (Toprol Xl) 100 mg PO DAILY [facility] Last Admin: 06/13/18 08:51 Dose: 100 mg Morphine Sulfate (Morphine) 2 mg SLOW IVP Q4H PRN PRN Reason: Mild Pain (1-3) Last Admin: 06/13/18 08:48 Dose: 2 mg Morphine Sulfate (Morphine) 4 mg IVP Q4H PRN PRN Reason: Moderate Pain (4-6) Last Admin: 06/12/18 21:06 Dose: 4 mg Multivitamins/Zinc (Stress 600 With Zinc) 1 tab PO QAM [facility] Last Admin: 06/13/18 08:51 Dose: 1 tab Ondansetron HCl (Zofran Odt) 8 mg SL BID PRN PRN Reason: Nausea/Vomiting Ondansetron HCl (Zofran) 4 mg IVP Q4H PRN PRN Reason: Nausea/Vomiting Last Admin: 06/11/18 17:36 Dose: 4 mg Oxymetazoline HCl (Oxymetazoline Hcl) 1 sprays NASAL BID [facility] Last Admin: 06/13/18 09:23 Dose: Not Given Rosuvastatin Calcium (Crestor) 10 mg PO HS [facility] Last Admin: 06/12/18 21:04 Dose: 10 mg Simethicone (Mylicon Chewable) 80 mg PO Q6H PRN PRN Reason: Gas Pain Last Admin: 06/12/18 14:43 Dose: 80 mg Sodium Chloride (Flush - Normal Saline) 10 ml IVF Q12HR [facility] Last Admin: 06/13/18 08:57 Dose: 10 ml Sodium Chloride (Flush - Normal Saline) 10 ml IVF PRN PRN PRN Reason: Saline Flush Tramadol HCl (Ultram) 50 mg PO Q6H PRN PRN Reason: Pain Last Admin: 06/12/18 08:44 Dose: 50 mg Tramadol HCl (Ultram) 100 mg PO Q6H PRN PRN Reason: Pain Last Admin: 06/13/18 04:28 Dose: 100 mg
--- NOTE | 2018-06-13 10:53 | PDOC.CTH ---
<Karlee Wilson - Last Filed: 06/13/18 10:53> Cardiology Progress Note - Subjective The pt seen and examined. No overnight events. No cardiac complaints. She cont. having severe pain to surgical site per family. She has not had good BM since 1st day of this admission. - Objective Vital Signs Temp Pulse Resp BP BP Pulse Ox 06/13/18 08:52 184/80 H 06/13/18 07:25 98.5 F 70 16 178/72 H 94 L 06/13/18 03:57 98.2 F 65 16 150/67 H 96 06/13/18 00:10 98.2 F 70 16 163/68 H 93 L Admit Weight 191 lb 1.6 oz Weight 191 lb 1.6 oz 06/12/18 06/13/18 06/14/18 06:59 06:59 06:59 Intake Total 2070 1616 Balance 2070 1616 - Physical Examination General/Neuro: alert & oriented x3 Neck: no JVD present Lungs: CTA (diminished at bases) Heart: RRR Abdomen: soft Extremities: other: (No edema) - Telemetry Telemetry Rhythm: SR - Labs Result Diagrams: 06/13/18 08:12 06/13/18 08:11 Troponin/CKMB CK-MB (CK-2) 0.5 ng/mL (0-6.6) 06/09/18 23:26 Troponin I Less than 0.010 ng/mL (< 0.028) 06/09/18 23:26 - Assessment/Plan 1. S/p EX lap Adela on 06/11/18 - Cont. having intermittent pain which required Morphine this AM. 2. S/p AVR in 03/2018 - Echo on 06/11/18 showed Normal bioprosthetic aortic valve with EF 55-60%, trace AI, mildly dilated LA, and mild elevated PAP 3. HTN - elevated. Increase Lisinopril from 10mg to 20mg qd. 4. Paroxysmal afib in 04/2018 - Remains in SR during this admission. On Multaq and Metoprolol. Will resume Eliquis once she is cleared by surgeon. 5. DM type 2 - stable 6. Hyperlipidemia - managed by PCP 7. Hypothyroidism - On statin 8. S/p staphylococcus aureus bacteremia - Positive blood cx this admission; Echo on 09/07/18 showed no evidence of vegetation to bioprosthetic valve area. MAR reviewed * Eliquis will be resumed within 2-3 days once cleared by surgeon. Review of Systems - Review of Systems Constitutional: reports: weakness EENTM: reports: no symptoms reported Respiratory: reports: no symptoms reported Cardiac (ROS): reports: no symptoms reported ABD/GI: reports: see HPI : reports: no symptoms reported <Ramon Conteh - Last Filed: 06/13/18 19:29> Cardiology Progress Note - Objective Vital Signs Temp Pulse Resp BP BP Pulse Ox 06/13/18 16:45 162/70 H 06/13/18 15:14 97.9 F 71 16 223/93 H 99 06/13/18 11:47 153/72 H 06/13/18 11:21 97.9 F 67 18 144/69 H 98 06/13/18 08:52 184/80 H 06/13/18 08:45 97.9 F 67 18 94 L Admit Weight 191 lb 1.6 oz Weight 191 lb 1.6 oz 06/12/18 06/13/18 06/14/18 06:59 06:59 06:59 Intake Total 2070 1616 100 Balance 2070 1616 100 - Labs Result Diagrams: 06/13/18 08:12 06/13/18 08:11 Troponin/CKMB CK-MB (CK-2) 0.5 ng/mL (0-6.6) 06/09/18 23:26 Troponin I Less than 0.010 ng/mL (< 0.028) 06/09/18 23:26 - Assessment/Plan Pt. seen and eval. by me. She seems SOB this PM. Chest: wheezing. Decreased BS with distention. Receiving IV fluids. May be vol. overloaded. She will be NPO with an NG tube, may need to decrease fluids and try dose of diuretics. otherwise I agree with the A/P by the EDUCATION ADVISER.
[2018-06-13] MEDS: Simethicone Chewable 80 MG TAB PO PRN (11:45)
[2018-06-13] MEDS: Ketorolac Tromethamine 30 MG/ML VIAL IVP PRN ×2 (11:46→20:27)
--- NOTE | 2018-06-13 13:11 | RAD ---
KUB: DATE: 06/13/18. COMPARISON: None. HISTORY: Abdominal distention following a laparoscopic cholecystectomy. FINDINGS: Supine imaging is provided, limiting assessment for bowel obstruction and free intraperitoneal air. There are postsurgical clips in the right upper quadrant consistent with prior cholecystectomy. There is gas within mildly distended small bowel and mid abdomen, significance uncertain, followup advised . IMPRESSION: Mild gaseous distention of small bowel within the mid abdomen of uncertain clinical significance. Re commend followup imaging. POS: [facility]
--- NOTE | 2018-06-13 16:01 | TCOM ---
The patient complains of increasing abdominal distention, some nausea and pain. She has not passed a ny flatus since surgery. PHYSICAL EXAMINATION: VITAL SIGNS: Temperature 97.9, pulse 67, blood pressure 153/72. GENERAL: She looks uncomfortable. LUNGS: Clear. ABDOMEN: Distended, tympanitic. No bowel sounds. Incisions look fine. LABORATORY DATA: Her white count is increased to 12.7, H&H of 10 and 31, platelet count of 192. Her bilirubin is up to 4, AST 102, ALT of 228, alkaline phosphatase of 165. IMPRESSION: Postoperative ileus versus some type of obstruction. PLAN: We will do a KUB, continue walking. If she does not pass any gas in the next 4 hours, we will place an NG tube. May need CT scan to try and figure out why her bilirubin is going up, make sure t hat she did not have a bile leak.
[2018-06-13] MEDS ORDERED: D5 1/2 NS w/20 mEq KCL 1,000 ML IV SCH (19:32)
[2018-06-13] MEDS ORDERED: Furosemide 20 MG/2 ML VIAL SLOW IVP SCH (19:45)
[2018-06-13] MEDS: Rosuvastatin 10 MG TAB PO SCH (20:38)
[2018-06-13] MEDS: Ondansetron HCl/PF 4 MG/2 ML Vial IVP PRN (21:03)
--- NOTE | 2018-06-13 22:13 | PRG ---
DATE OF SERVICE: 06/13/2018 REASON FOR CONSULTATION: Abnormal LFTs. SUBJECTIVE: The patient continues to have increased abdominal distention and bloating along with right upper quadrant abdominal pain that is currently managed with her current pain medication regimen. However, she still has not had a bowel movement or passed flatus since the laparoscopic cholecystectomy concerning for possible ileus versus obstruction. Currently, denies any nausea , vomiting, fevers, chills or GI bleeding. OBJECTIVE: VITAL SIGNS: Temperature 97.9, pulse 71, blood pressure 162/70, respiratory rate 16, satting 99% on 2 liters nasal cannula. GENERAL: The patient was lying in bed, in no acute distress, alert and oriented x4; however, she does appear uncomfortable. CARDIOVASCULAR: Regular rate and rhythm. RESPIRATORY: Clear to auscultation bilaterally. ABDOMEN: Normoactive bowel sounds, soft. Mild abdominal distention. Tenderness to palpation in the right upper quadrant and mid epigastric regions. EXTREMITIES: No cyanosis, clubbing or edema. LABORATORY DATA: CBC with a white blood cell count of 12.7, hemoglobin 10.1, hematocrit 31.5, platelets 192. Chemistry with a sodium OF 133, potassium 4.2, chloride 103, CO2 23, BUN 21, creatinine 0.69, glucose 160, AST 102, ALT 228, alkaline phosphatase 165, total bilirubin 4.0. IMAGING DATA: Abdominal x-ray obtained on 06/13/2018 showed mild gaseous distention of the small bowel within the mid abdomen with uncertain clinical significance. ASSESSMENT AND PLAN: The patient is a 67-year-old female with past medical history of atrial fibrillation on chronic anticoagulation, aortic stenosis, status post aortic valve replacement, hypothyroidism, and hyperlipidemia presenting with acute cholecystitis and abnormal liver function test. Abnormal liver function tests: The patient initially presented with increased right upper quadrant abdominal pain with labs and imaging concerning for a possible obstructive process within the biliary tree; however, she underwent MRCP with no evidence of choledocholithiasis. She subsequently underwent laparoscopic cholecystectomy with intraoperative cholangiogram negative for filling defects; however, in the post-cholecystectomy period, she did have an increase in her liver function test, but has been downtrending ever since. However, she did have a mild increase in her total bilirubin over the last 24- 48 hours, which is discordant compared to the decrease in AST, ALT and alkaline phosphatase. At the current point in time, this could be due to delayed clearance of bilirubin as it usually lags behind the other transaminases with acute inflammation of the liver. However, a biliary leak should be considered at this time as well given prolonged elevation of her LFTs and increase in total bilirubin. Staphylococcus aureus bacteremia could also potentially generate this elevation in her LFTs, but given the higher likelihood of a skin contaminant, I think this is a less likely reason when compared to the other two. RECOMMENDATIONS: 1. We would continue to trend LFTs for evaluation of her transaminases in relation to total bilirubin. If her transaminases continue to downtrend but her bilirubin continues to elevate, I would strongly consider imaging for possible biliary leak. 2. We would avoid any potential hepatotoxins that could potentially contribute to liver injury. We will continue to follow. Please call with any additional questions. JJD
--- NOTE | 2018-06-13 23:07 | RAD ---
ABDOMEN ONE VIEW: History: Nasogastric tube placement. Comparison: Earlier exam on the same date. FINDINGS: The lower chest and upper abdomen are included. Nasogastric tube is coiled over the gastric body. Vis ualized bowel gas pattern is nonspecific. Pelvis is not included. Atelectasis is present at the right lung base. IMPRESSION: Nasogastric tube is in good radiographic position. POS: [facility]
[2018-06-14] MEDS: Fluticasone Propionate Nasal Spray 16 gm Bottle NASAL SCH ×3 (00:14→23:00)
[2018-06-14] MEDS: Oxymetazoline HCl 0.05% ( 15 ML ) NASAL SCH ×3 (00:14→23:00)
[2018-06-14] MEDS: hydrALAZINE 20 MG/ML VIAL SLOW IVP PRN (01:36)
[2018-06-14] MEDS: Ketorolac Tromethamine 30 MG/ML VIAL IVP PRN (02:46)
[2018-06-14] MEDS ORDERED: Iopamidol 370 76% 100 ML VIAL ONE (07:45)
[2018-06-14 08:41] LABS: #Eosinphils 0.1 thou/uL (0.0-0.7); #Lymphocytes 0.7 thou/uL (1.20-3.40); #Monocytes 0.7 thou/uL (0.11-0.59); #Neutrophils 10.5 thou/uL (1.40-6.50); %Basophils 0.1 % (0.0-1.0); %Eosinophils 1.2 % (0.0-10.0); %Lymphocytes 5.9 % (21.0-51.0); %Monocytes 5.5 % (0.0-10.0); %Neutrophils 87.3 % (42.0-75.0); Hemoglobin 9.5 g/dL (12.0-16.0); Mean Corpuscular HGB CONC 30.9 g/dL (32.0-36.0); Mean Corpuscular Hemoglobin 29.3 pg (27.0-31.0); Mean Corpuscular Volume 94.7 fL (78.0-98.0); Mean Platelet Volume 7.7 fL (7.4-10.4); Platelet Count 203 thou/uL (130-400); RBC Distribution Width 14.9 % (11.5-14.5); Red Blood Cell (RBC) Count 3.25 mill/uL (4.20-5.40); White Blood Cell (WBC) Count 12.1 thou/uL (4.8-10.8)
[2018-06-14 08:52] LABS: ALT (SGPT) 162 U/L (8-55); AST (SGOT) 75 U/L (5-34); Albumin 3.4 g/dL (3.4-4.8); Alkaline Phosphatase 182 U/L (40-150); Anion Gap 11 mmol/L (10-20); BUN (Urea Nitrogen) 14 mg/dL (9.8-20.1); Bilirubin, Total 5.8 mg/dL (0.2-1.2); Calc. Creatinine Clearance 120 mL/min (70-130); Calcium 9.3 mg/dL (7.8-10.44); Carbon Dioxide 25 mmol/L (23-31); Chloride 100 mmol/L (98-107); Estimated GFR-MDRD Greater than 90; Glucose 148 mg/dL (80-115); Potassium 4.3 mmol/L (3.5-5.1); Protein, Total 6.4 g/dL (6.0-8.3); Sodium 132 mmol/L (136-145)
--- NOTE | 2018-06-14 09:11 | RAD ---
ABDOMEN 1 VIEW: Date: 06/14/18 HISTORY: 67-year-old female with history of NG tube placement for position evaluation. Follow-up abdominal dis tention after laparoscopic cholecystectomy. FINDINGS: Single view of the upper abdomen and lower chest demonstrates a NG tube in place. There is some bilat eral vascular congestion with some increased markings in the infrahilar regions, slightly worse in th e left base, but overall stable. No evidence of foraminal bowel dilatation. IMPRESSION: NG tube in place. Stable bibasilar pulmonary, parenchymal, and pleural changes. POS: [facility]
[2018-06-14] MEDS: cefTRIAXone\\ROCEPHIN 2 GM in Sodium Chloride 0.9% 100 ML IVPB SCH (09:17)
[2018-06-14] MEDS: Sodium Chloride 0.9% 1,000 ML IV SCH (10:44)
[2018-06-14] MEDS: Ondansetron HCl/PF 4 MG/2 ML Vial IVP PRN (10:45)
--- NOTE | 2018-06-14 11:12 | PRG ---
DATE OF SERVICE: 06/14/2018 SUBJECTIVE: The patient is hospital day #5 and postoperative day #3 after her laparoscopic cholecyst ectomy with cholangiogram. Her surgery was performed on 06/11/[address] Roman. Her cholangiogram was felt to be negative. Review of the cholangiogram shows that the cystic duct and common duct wer e both of normal caliber and the cystic duct had a fairly long segment external to the common duct. Subsequent to the surgery, she has felt poorly developed abdominal bloating and vomiting. She tells me she has had one bowel movement since the surgery and it was loose a couple of days ago. Although, she has remained afebrile with essentially normal vital signs, her laboratory studies have been conc erning. Before her surgery, her bilirubin was 2.0 and it has risen up to 4.0 yesterday and 5.8 today . Her transaminases have both decreased significantly. Her alkaline phosphatase has remained stable and somewhat elevated at 182. Her lipase was normal preoperatively, but has not been rechecked. He r white blood cell count was 4.8 on the morning of surgery and nikolai to 12.7 yesterday and 12.1 today. Her hemoglobin is 9.5 today. Nasogastric tube was placed yesterday, I believe. The volume out is not charted. The nasogastric tu be is currently not to suction as she is taking oral contrast for a CT scan right now. She notes fee ling poorly, but primarily this is from abdominal distention she believes. PHYSICAL EXAMINATION: VITAL SIGNS: Temperature is 98.3, pulse 69, blood pressure 139/78. LUNGS: Clear to auscultation. Nasogastric tube is in place. ABDOMEN: Distended. Incisions appear to be healing appropriately with Dermabond intact. There are no bowel sounds appreciated intra-abdominal. Her abdomen is not acutely tender, but it is distended and uncomfortable with any attempt to deeper palpation. EXTREMITIES: Unremarkable. LABORATORY DATA: As mentioned above. ASSESSMENT AND PLAN: The patient who has elevated white blood cell count and bilirubin level followi ng laparoscopic cholecystectomy [address] scan has been ordered for today. Further imaging or intervention will depend upon CT findings.
--- NOTE | 2018-06-14 11:34 | PDOC.PN ---
- Subjective Encounter Start Date: 06/14/18 Encounter Start Time: 07:40 pt is very weak, not doing well, has ng tube - Objective Resuscitation Status: Resuscitation Status FULL:Full Resuscitation MAR Reviewed: Yes Vital Signs & Weight: Vital Signs (12 hours) Temp Pulse Resp BP BP Pulse Ox 06/14/18 07:59 98.3 F 69 16 139/78 99 06/14/18 04:38 98.7 F 73 18 151/78 H 98 06/14/18 01:36 71 06/14/18 00:10 202/62 H Weight Admit Weight 191 lb 1.6 oz Weight 191 lb 1.6 oz I&O: 06/13/18 06/14/18 06/15/18 06:59 06:59 06:59 Intake Total 1616 2890 Balance 1616 2890 Result Diagrams: 06/14/18 08:21 06/14/18 08:21 Radiology Reviewed by me: Yes (xray abdomen noted) EKG Reviewed by me: Yes Phys Exam - Physical Examination Constitutional: NAD HEENT: PERRLA, moist MMs, oral pharynx no lesions icterus+ Neck: no JVD, supple Respiratory: no wheezing, no rales, no rhonchi reduced air entry Cardiovascular: RRR, no significant murmur, no rub Gastrointestinal: soft, no distention diffuse soreness Musculoskeletal: no edema, pulses present Neurological: non-focal, normal sensation, moves all 4 limbs Psychiatric: normal affect, A&O x 3 Skin: no rash, normal turgor Dx/Plan (1) Acute cholecystitis Code(s): K81.0 - ACUTE CHOLECYSTITIS Status: Acute Comment: s/p lap niraj (2) Acute sinusitis Code(s): J01.90 - ACUTE SINUSITIS, UNSPECIFIED Status: Acute Qualifiers: Sinusitis location: frontal Comment: (3) Elevated liver enzymes Code(s): R74.8 - ABNORMAL LEVELS OF OTHER SERUM ENZYMES Status: Acute Comment: (4) Ileus following gastrointestinal surgery Code(s): K91.30 - POSTPROC INTESTINAL OBST, UNSP TO PARTIAL VERSUS COMPLETE Status: Acute (5) Staphylococcus aureus bacteremia Code(s): R78.81 - BACTEREMIA Status: Acute Comment: (6) H/O aortic valve replacement with porcine valve Code(s): Z95.3 - PRESENCE OF XENOGENIC HEART VALVE Status: Chronic (7) Hypothyroidism Code(s): E03.9 - HYPOTHYROIDISM, UNSPECIFIED Status: Chronic (8) Obesity (BMI 30.0-34.9) Code(s): E66.9 - OBESITY, UNSPECIFIED Status: Chronic (9) Paroxysmal A-fib Code(s): I48.0 - PAROXYSMAL ATRIAL FIBRILLATION Status: Chronic (10) Bile leak, postoperative Code(s): K91.89 - OTH POSTPROCEDURAL COMPLICATIONS AND DISORDERS OF DGSTV SYS; K83.8 - OTHER SPECIFIED DISEASES OF BILIARY TRACT Status: Suspected - Plan cont current plan of care, continue antibiotics, incentive spirometry * today CT abdomen to rule out billiary leak, as her billirubin is going up * surgery following * change IVF to NS * change augementin to IV rocephin * currently has NG tube with LIS * medication reviewed as below * symptomatic treatment. Review of Systems - Review of Systems Constitutional: negative: fever, chills, sweats, weakness, malaise, other Eyes: negative: Pain, Vision Change, Conjunctivae Inflammation, Eyelid Inflammation, Redness, Other ENT: negative: Ear Pain, Ear Discharge, Nose Pain, Nose Discharge, Nose Congestion, Mouth Pain, Mouth Swelling, Throat Pain, Throat Swelling, Other Respiratory: negative: Cough, Dry, Shortness of Breath, Hemoptysis, SOB with Excertion, Pleuritic Pain, Sputum, Wheezing Cardiovascular: negative: chest pain, palpitations, orthopnea, paroxysmal nocturnal dyspnea, edema, light headedness, other Gastrointestinal: Nausea, Abdominal Pain. negative: Vomiting, Diarrhea, Constipation, Melena, Hematochezia, Other Genitourinary: negative: Dysuria, Frequency, Incontinence, Hematuria, Retention , Other Musculoskeletal: negative: Neck Pain, Shoulder Pain, Arm Pain, Back Pain, Hand Pain, Leg Pain, Foot Pain, Other Skin: negative: Rash, Lesions, Prince, Bruising, Other - Medications/Allergies Allergies/Adverse Reactions: Allergies Allergy/AdvReac Type Severity Reaction Status Date / Time codeine Allergy Intermediate NAUSEA/VOMI Verified 06/10/18 06:33 TING Medications: Current Medications Aspirin (Ecotrin) 81 mg PO DAILY JOSUE Last Admin: 06/13/18 08:52 Dose: 81 mg Bisacodyl (Dulcolax) 10 mg PA DAILYPRN PRN PRN Reason: Constipation Last Admin: 06/12/18 17:15 Dose: 10 mg Dronedarone (Multaq) 400 mg PO BID-[facility] Last Admin: 06/13/18 16:07 Dose: 400 mg Fluoxetine HCl (Prozac) 20 mg PO DAILY [facility] Last Admin: 06/13/18 08:55 Dose: 20 mg Fluticasone Propionate (Flonase Nasal [place]) 0 gm NASAL BID [facility] Last Admin: 06/14/18 00:14 Dose: Not Given Hydralazine HCl (Apresoline) 10 mg SLOW IVP Q6H PRN PRN Reason: SBP Greater Than 180 Last Admin: 06/14/18 01:36 Dose: 10 mg Ceftriaxone Sodium 2 gm/ (Sodium Chloride) 100 mls @ 200 mls/hr IVPB Q24HR [facility] Last Admin: 06/14/18 09:17 Dose: 100 mls Sodium Chloride (Normal Saline 0.9%) 1,000 mls @ 75 mls/hr IV .[id number] [facility] Last Admin: 06/14/18 10:44 Dose: 1,000 mls Ibuprofen (Motrin) 600 mg PO Q6H PRN PRN Reason: Pain Iron/Minerals/Multivitamins (Theragran M) 1 tab PO DAILY [facility] Last Admin: 06/13/18 08:52 Dose: 1 tab Levothyroxine Sodium (Synthroid) [facility] [place] Last Admin: 06/13/18 08:52 Dose: 50 mcg Lisinopril (Zestril) 20 mg PO DAILY [facility] Metoprolol Succinate (Toprol Xl) 100 mg PO DAILY [facility] Last Admin: 06/13/18 08:51 Dose: 100 mg Morphine Sulfate (Morphine) 2 mg SLOW IVP Q4H PRN PRN Reason: Mild Pain (1-3) Last Admin: 06/14/18 02:46 Dose: 2 mg Morphine Sulfate (Morphine) 4 mg IVP Q4H PRN PRN Reason: Moderate Pain (4-6) Last Admin: 06/14/18 09:15 Dose: 4 mg Multivitamins/Zinc (Stress 600 With Zinc) 1 tab PO QAM [facility] Last Admin: 06/13/18 08:51 Dose: 1 tab Ondansetron HCl (Zofran Odt) 8 mg SL BID PRN PRN Reason: Nausea/Vomiting Last Admin: 06/14/18 02:45 Dose: 8 mg Ondansetron HCl (Zofran) 4 mg IVP Q4H PRN PRN Reason: Nausea/Vomiting Last Admin: 06/14/18 10:45 Dose: 4 mg Oxymetazoline HCl (Oxymetazoline Hcl) 1 sprays NASAL BID [facility] Last Admin: 06/14/18 00:14 Dose: Not Given Rosuvastatin Calcium (Crestor) 10 mg PO HS [facility] Last Admin: 06/13/18 20:38 Dose: 10 mg Simethicone (Mylicon Chewable) 80 mg PO Q6H PRN PRN Reason: Gas Pain Last Admin: 06/13/18 11:45 Dose: 80 mg Sodium Chloride (Flush - Normal Saline) 10 ml IVF Q12HR [facility] Last Admin: 06/14/18 09:18 Dose: 10 ml Sodium Chloride (Flush - Normal Saline) 10 ml IVF PRN PRN PRN Reason: Saline Flush Tramadol HCl (Ultram) 50 mg PO Q6H PRN PRN Reason: Pain Last Admin: 06/12/18 08:44 Dose: 50 mg Tramadol HCl (Ultram) 100 mg PO Q6H PRN PRN Reason: Pain Last Admin: 06/13/18 04:28 Dose: 100 mg
--- NOTE | 2018-06-14 11:46 | PRG ---
DATE OF SERVICE: 06/14/2018 REASON FOR CONSULTATION: Abnormal LFTs. SUBJECTIVE: The patient continues to have increased abdominal distention and bloating as well as inc reased pain in the right upper quadrant that is currently partially managed with the current pain med ication regimen. Overnight, an NG tube was placed for decompression of the upper GI tract with minim al relief in her symptoms. Currently, denies any nausea, vomiting, fevers, chills, or GI bleeding. OBJECTIVE: VITAL SIGNS: Temperature 98.3, pulse 69, blood pressure 139/78, respiratory rate 16, satting 99% on room air. GENERAL: The patient is lying in bed in no acute distress. Alert and oriented x4. HEART: Regular rate and rhythm. RESPIRATORY: Clear to auscultation bilaterally. ABDOMEN: Normoactive bowel sounds, soft, [id number] abdominal distention. Tenderness to palpa tion in the right upper quadrant and mid epigastric regions. EXTREMITIES: No cyanosis, clubbing, or edema. LABORATORY DATA: CBC with a white blood cell count of 12.1, hemoglobin 9.5, hematocrit 30.8, platele ts 203. Chemistry with a sodium of 132, potassium 4.3, chloride 100, CO2 of 25, BUN 14, creatinine 0 .64, glucose 148, AST 75, ALT 162, alkaline phosphatase 182, total bilirubin 5.8. IMAGING DATA: KUB obtained on 06/14/2018 shows the NG tube in proper position as well as some bilate ral vascular congestion and some increased markings of the infrahilar region, slightly worse in the l eft base, but overall stable. No evidence of foraminal bowel dilatation. ASSESSMENT AND PLAN: The patient is a 67-year-old female with past medical history of atrial fibrill ation, on chronic anticoagulation; aortic stenosis, status post aortic valve replacement; hypothyroid ism; and hyperlipidemia; presenting with acute cholecystitis and now with abnormal liver function baljeet ts. Abnormal liver function tests. The patient initially presented with increased right upper quadrant a bdominal pain with labs and imaging concerning for possible choledocholithiasis. She subsequently un derwent MRCP with no evidence of that particular diagnosis. She then underwent laparoscopic cholecys tectomy with intraoperative cholangiogram negative for filling defects; however, in the post-cholecys tectomy period, her transaminases have continued to downtrend, but her total bilirubin is discordantl y rising concerning for a possible biliary leak. RECOMMENDATIONS: 1. We would obtain a contrasted CT scan of the abdomen for evaluation of possible biliary leak. 2. If biliary leak is present, consideration for ERCP should then be entertained for stent placement . 3. We would continue to trend LFTs while inpatient. We will continue to follow. Please call with any additional questions.
[2018-06-14] MEDS ORDERED: Promethazine HCl 25 MG/ML VIAL SLOW IVP SCH (12:30)
[2018-06-14] MEDS: Dronedarone HCl 400 MG TAB PO SCH ×2 (13:35→17:22)
[2018-06-14] MEDS: Stress 600 With Zinc 1 TAB PO SCH (13:36)
[2018-06-14] MEDS: Multivitamin W/ Minerals 1 TAB PO SCH (13:36)
[2018-06-14] MEDS: Levothyroxine Sodium 50 MCG TAB PO SCH (13:36)
--- NOTE | 2018-06-14 15:10 | CT ---
ABDOMEN AND PELVIC CT SCAN WITH IV CONTRAST: Date: 06/14/18 HISTORY: 67-year-old female with history of ileus, status post cholecystectomy. Concern for bile leak. FINDINGS: Bilateral pleural effusions are noted with some parenchymal changes in both lung zones inferiorly, ev idence for subsegmental atelectasis. There is a fairly large amount of intraperitoneal fluid througho ut the abdomen and pelvis. There is some persistent free intraperitoneal air following cholecystectom y. There is some minimal fat stranding in the cholecystectomy operative bed region and one tiny punct ate air collection in this region. Common bile duct and intrahepatic ducts are not dilated. Pancreas appears unremarkable. No renal calculus or acute obstruction. Normal appearing appendix. Mildly di stended urinary bladder. Unremarkable uterus and adnexa. IMPRESSION: Moderate to large amount of free intraperitoneal fluid throughout the abdomen and pelvis. Given charlie rn for a bile leak, this certainly could be consistent with that. Follow-up nuclear medicine hepatobi liary scan is suggested. Minimal persistent free intraperitoneal air and postsurgical changes in the gallbladder operative bed region. Bilateral pleural effusions and bibasilar pulmonary and parenchymal changes, evidence for some subsegmental atelectasis. Findings discussed with Dr. Vishal Avelar at 1424 hours. CODE CR. POS: [facility]
--- NOTE | 2018-06-14 15:23 | RAD ---
ABDOMEN ONE VIEW: History: 67-year-old female with history of dislodged NG tube for placement verification. FINDINGS/IMPRESSION: The distal NG tube is noted within the stomach. It is difficult to say exactly where the side hole is , conceivably this too could be advanced somewhat to ensure complete entry into the stomach of the NG tube tip and side hole. Residual oral and iodinated contrast within the abdomen and pelvis with oral contrast in the small bowel and colon following an earlier CT abdomen and pelvis today. POS: [facility]
[2018-06-14] MEDS: Aspirin 81 mg Enteric Coated Tablet PO SCH (15:35)
[2018-06-14] MEDS: Lisinopril 20 MG TAB PO SCH (15:35)
[2018-06-14] MEDS: FLUoxetine HCl 20 MG CAP PO SCH (15:35)
[2018-06-14] MEDS ORDERED: Indomethacin 50 MG SUPP ONE (17:54)
[2018-06-14] MEDS ORDERED: Iothalamate Meglumine 60% 50 ML VIAL FS ONE (17:58)
[2018-06-14] MEDS ORDERED: Fentanyl 100 MCG/2 ML VIAL ONE (18:08)
[2018-06-14] MEDS ORDERED: Midazolam HCl 2 mg/2 ml Vial ONE (18:08)
[2018-06-14] MEDS ORDERED: SUGAMMADEX SODIUM 200 MG/2 ML VIAL ONE (18:58)
[2018-06-14] MEDS ORDERED: Ondansetron HCl/PF 4 MG/2 ML Vial IVP PRN (19:34)
[2018-06-14] MEDS ORDERED: Promethazine HCl 25 MG/ML VIAL SLOW IVP PRN (19:34)
[2018-06-14] MEDS ORDERED: Promethazine HCl 25 MG/ML VIAL IM PRN (19:34)
[2018-06-14] MEDS: Rosuvastatin 10 MG TAB PO SCH (23:00)
--- NOTE | 2018-06-15 00:48 | OP ---
GI ENDOSCOPY NOTE SURGEON: Francisco Ordonez M.D. UTILIZATION REVIEW RN SURGEON: None. PROCEDURE: ERCP with biliary stent placement. INDICATION: 1. Postoperative bile leak, as demonstrated on CT of the abdomen and pelvis from earlier today and i ncreasing bilirubin levels since recent cholecystectomy. 2. Elevated bilirubin. MEDICATIONS: 1. See anesthesia record. 2. Indomethacin 100 mg per rectum as periprocedural prophylaxis against post-ERCP pancreatitis. FINDINGS: After discussion of the risks, benefits and alternatives of the procedure, informed consen t was obtained and witnessed. Pre-endoscopic cardiopulmonary examination was satisfactory. Timeout was performed before sedation was achieved. Sedation was achieved with anesthesia assistance in the endoscopy unit. The patient was placed in a semi-prone position on the fluoroscopy table. A Pentax adult side-viewing duodenoscope was passed through the mouth beyond the esophagus and into the gastri c lumen. There was a small amount of retained liquid in the gastric lumen, which was partially sucti oned. The endoscope was passed beyond the pylorus and into the second portion of the duodenum withou t difficulty. The endoscope was brought into the short position with the ampulla in view. The ampul la appeared normal. Using a triple lumen dome tipped sphincterotome and a 0.035 guidewire, we were a ble to easily selectively cannulate the common bile duct. The guide wire was passed up into the righ t intrahepatic system. At this point, a cholangiogram was performed. The cholangiogram demonstrated no biliary dilation. There is a bile leak due to poor image quality, I am not able to definitively ascertain where the leak originates, but it appears to probably be from the cystic duct stump. The l eaking contrast agent pools in the gallbladder fossa. I would classify this as a high-grade leak as it was demonstrated prior to complete filling of the intrahepatic bile duct. The cholangiogram appea red otherwise unremarkable. There were no filling defects demonstrated on the cholangiogram. At thi s point, the sphincterotome was removed and we elected to place a 10-[place] x 7 cm straight dual flan ged plastic stent across the ampulla. The stent was placed easily. Once the stent was placed, there was free flow of bile and contrast out of the stent and it was found to be in good position. At thi s point, the endoscope was completely withdrawn suctioning out excess air and fluid and the procedure was complete. Postprocedure fluoroscopic images demonstrated no retroperitoneal or subdiaphragmatic free air. The patient tolerated the procedure well. There were no immediate post-procedure complic ations. IMPRESSION: 1. Bile leak, high grade, appears to originate from the cystic duct stump into the gallbladder fossa , though due to poor image quality, I cannot be 100% certain of its origination. 2. Successful placement of 10-[place] Citizen x 7 cm straight dual flanged plastic stent across the ampulla, with good flow of bile and contrast out of the stent following placement. 3. No other abnormalities. RECOMMENDATIONS: 1. The patient will remain n.p.o. for tonight. Dietary advancement tomorrow per surgical service. 2. Trend LFTs. 3. Monitor for potential post-ERCP complications including pancreatitis.
[2018-06-15] MEDS: Sodium Chloride 0.9% 1,000 ML IV SCH (03:29)
[2018-06-15] MEDS: Levothyroxine Sodium 50 MCG TAB PO SCH (06:50)
[2018-06-15] MEDS: Multivitamin W/ Minerals 1 TAB PO SCH (09:25)
[2018-06-15] MEDS: Aspirin 81 mg Enteric Coated Tablet PO SCH (09:25)
[2018-06-15] MEDS: FLUoxetine HCl 20 MG CAP PO SCH (09:25)
[2018-06-15] MEDS: Lisinopril 20 MG TAB PO SCH ×2 (09:25→20:43)
[2018-06-15] MEDS: Dronedarone HCl 400 MG TAB PO SCH ×2 (09:25→16:10)
[2018-06-15] MEDS: cefTRIAXone\\ROCEPHIN 2 GM in Sodium Chloride 0.9% 100 ML IVPB SCH (10:09)
[2018-06-15] MEDS: Fluticasone Propionate Nasal Spray 16 gm Bottle NASAL SCH ×2 (11:47→20:43)
[2018-06-15] MEDS: Oxymetazoline HCl 0.05% ( 15 ML ) NASAL SCH ×2 (11:48→20:44)
[2018-06-15] MEDS: Stress 600 With Zinc 1 TAB PO SCH (11:48)
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
[2018-06-15 14:35] LABS: #Lymphocytes 0.5 thou/uL (1.20-3.40); #Monocytes 0.8 thou/uL (0.11-0.59); #Neutrophils 11.2 thou/uL (1.40-6.50); %Lymphocytes 3.9 % (21.0-51.0); Hemoglobin 9.7 g/dL (12.0-16.0); Mean Corpuscular HGB CONC 33.1 g/dL (32.0-36.0); Mean Corpuscular Hemoglobin 31.1 pg (27.0-31.0); Mean Corpuscular Volume 93.9 fL (78.0-98.0); Platelet Count 319 thou/uL (130-400); RBC Distribution Width 14.8 % (11.5-14.5); Red Blood Cell (RBC) Count 3.13 mill/uL (4.20-5.40); White Blood Cell (WBC) Count 12.4 thou/uL (4.8-10.8)
[2018-06-15 14:55] LABS: ALT (SGPT) 130 U/L (8-55); AST (SGOT) 105 U/L (5-34); Albumin 3.5 g/dL (3.4-4.8); Alkaline Phosphatase 206 U/L (40-150); Anion Gap 11 mmol/L (10-20); BUN (Urea Nitrogen) 19 mg/dL (9.8-20.1); Bilirubin, Total 3.9 mg/dL (0.2-1.2); Calc. Creatinine Clearance 107 mL/min (70-130); Calcium 9.8 mg/dL (7.8-10.44); Carbon Dioxide 27 mmol/L (23-31); Chloride 100 mmol/L (98-107); Estimated GFR-MDRD 81; Globulin 3.5 g/dL (2.4-3.5); Glucose 168 mg/dL (80-115); Sodium 134 mmol/L (136-145)
[2018-06-15] MEDS: hydrALAZINE 20 MG/ML VIAL SLOW IVP PRN (16:09)
--- NOTE | 2018-06-15 18:03 | PRG ---
DATE OF SERVICE: 06/15/2018 HISTORY OF PRESENT ILLNESS: Ms. Brown remains in her room on the stroke unit. She tells me she is feeling a little better today than she did yesterday. When we saw her yesterday, she had a nasogastr ic tube and this has been removed. She is on a clear liquid diet. She tells me she has been belchin g some, but no vomiting. She has generally been tolerating her clear liquids. She did have a bowel movement last night, but denies passing any flatus. She notes persistent abdominal fullness, but bel ieves it is a little better. She did have an ERCP per Dr. Ordonez yesterday. This did reveal a bile leak, suspected to be at the cys tic duct stump. A stent was placed. PHYSICAL EXAMINATION: VITAL SIGNS: She is afebrile. Pulse is 67, blood pressure is 185/79. LUNGS: Clear to auscultation. ABDOMEN: Protuberant and possibly somewhat distended. There are normoactive bowel sounds today. Th ere were no bowel sounds heard yesterday. Her incisions are healing nicely. LABORATORY STUDIES: White blood cell count is still elevated at 12.4, hemoglobin is 9.7, platelet co unt is 319. Her chemistry profile reveals essentially normal electrolytes. Her bilirubin has droppe d from 5.8 yesterday, down to 3.9 today. Her other liver function tests are up a little bit. She ap pears to be making appropriate progress. It appears that her ileus was resolving. I think it is viviana ropriate to continue her clear liquid diet for now. If she tolerates this and it appears stable, the n she may be ready for discharge tomorrow. Dr. Roman will return tomorrow and resume her care.
--- NOTE | 2018-06-15 19:57 | PRG ---
DATE OF SERVICE: 06/15/2018 REASON FOR CONSULTATION: Abnormal LFTs. SUBJECTIVE: The patient underwent urgent ERCP last night with the finding of a high grade bile leak on ERCP. This was subsequently intervened upon with a plastic biliary stent with no perioperative co mplications. Today, she states that she is feeling much better with decreased abdominal pain and she is passing gas at this point in time. Currently, she denies any nausea, vomiting, fevers, chills or GI bleeding. OBJECTIVE: VITAL SIGNS: Temperature 98.4, pulse 67, blood pressure 185/79, respiratory rate 20, satting 99% on 2 liters nasal cannula. GENERAL: The patient is lying in bed, in no acute distress. Alert and oriented x4. CARDIOVASCULAR: Regular rate and rhythm. RESPIRATORY: Clear to auscultation bilaterally. ABDOMEN: Normoactive bowel sounds, soft, mild to moderate abdominal distention. Tenderness to palpa tion in the right upper quadrant and mid epigastric regions. EXTREMITIES: No cyanosis, clubbing or edema. LABORATORY DATA: CBC with a white blood cell count of 12.4, hemoglobin 9.7, hematocrit 29.4, platele ts 319. Chemistry with a sodium of 134, potassium 4, chloride 100, CO2 of 27, BUN 19, creatinine 0.7 2, glucose 168, AST 105, ALT 130, alkaline phosphatase 206, total bilirubin 3.9. IMAGING DATA: ERCP was performed on 06/14/2018, which showed a high grade bile leak, most likely aleshia nating from the cystic stump. This was intervened upon with a 10-[place] 7-cm straight dual flanged p lastic stent across the ampulla with good flow of bile and contrast out of the stent following place ent. ASSESSMENT AND PLAN: The patient is a 67-year-old female with past medical history of atrial fibrill ation, on anticoagulation; aortic stenosis, status post aortic valve replacement; hypothyroidism; hyp erlipidemia; presenting with acute cholecystitis and now with abnormal liver function tests, indicati ve of a biliary leak. Biliary leak: The patient initially presented with increased right upper quadrant abdominal pain wit h labs and imaging concerning for possible choledocholithiasis. MRCP performed shortly after admissi on did not support that particular diagnosis. She subsequently underwent laparoscopic cholecystectom y with intraoperative cholangiogram negative for filling defects. However, in the post-cholecystecto my period, she had decrease in her transaminases, but an increase in her total bilirubin as well as i ncreased abdominal pain and what appeared to be an ileus on imaging concerning for possible biliary l eak. CT of the abdomen and pelvis performed on 06/14/2018 showed a large amount of fluid within the abdomen again concerning for a biliary leak. She subsequently underwent ERCP on 06/14/2018 with a hi gh grade biliary leak seen emanating from the cystic stump. That was successfully intervened upon wi th a plastic stent bridging the ampulla and providing a path of least resistance for bile and contras t. Currently, doing well, symptomatically with decreased abdominal pain and passing flatus. RECOMMENDATIONS: 1. We would continue to trend LFTs while inpatient in response to treatment with biliary stent. 2. The patient will need a repeat ERCP in approximately 3 months for removal of the plastic stent fr om the biliary tree. 3. We would defer to General Surgery Service for postoperative management of laparoscopic cholecyste ctomy 4. Pain control per primary team. We will sign off at this time. Please call with any additional questions.
[2018-06-15] MEDS: Rosuvastatin 10 MG TAB PO SCH (20:43)
[2018-06-16 03:59] LABS: #Eosinphils 0.1 thou/uL (0.0-0.7); #Monocytes 0.8 thou/uL (0.11-0.59); #Neutrophils 8.7 thou/uL (1.40-6.50); %Basophils 0.1 % (0.0-1.0); %Eosinophils 0.8 % (0.0-10.0); %Lymphocytes 9.2 % (21.0-51.0); %Monocytes 7.7 % (0.0-10.0); %Neutrophils 82.2 % (42.0-75.0); Hemoglobin 8.2 g/dL (12.0-16.0); Mean Corpuscular HGB CONC 33.3 g/dL (32.0-36.0); Mean Corpuscular Hemoglobin 30.9 pg (27.0-31.0); Mean Corpuscular Volume 92.9 fL (78.0-98.0); Mean Platelet Volume 7.6 fL (7.4-10.4); Platelet Count 248 thou/uL (130-400); RBC Distribution Width 14.9 % (11.5-14.5); Red Blood Cell (RBC) Count 2.65 mill/uL (4.20-5.40); White Blood Cell (WBC) Count 10.5 thou/uL (4.8-10.8)
[2018-06-16 04:15] LABS: ALT (SGPT) 120 U/L (8-55); AST (SGOT) 120 U/L (5-34); Albumin 2.9 g/dL (3.4-4.8); Alkaline Phosphatase 173 U/L (40-150); Anion Gap 13 mmol/L (10-20); BUN (Urea Nitrogen) 17 mg/dL (9.8-20.1); Bilirubin, Total 3.2 mg/dL (0.2-1.2); Calc. Creatinine Clearance 124 mL/min (70-130); Calcium 9.1 mg/dL (7.8-10.44); Carbon Dioxide 24 mmol/L (23-31); Chloride 104 mmol/L (98-107); Estimated GFR-MDRD Greater than 90; Glucose 119 mg/dL (80-115); Potassium 3.6 mmol/L (3.5-5.1); Protein, Total 5.9 g/dL (6.0-8.3); Sodium 137 mmol/L (136-145)
[2018-06-16] MEDS: Ondansetron HCl/PF 4 MG/2 ML Vial IVP PRN (04:50)
[2018-06-16] MEDS: Levothyroxine Sodium 50 MCG TAB PO SCH (06:41)
[2018-06-16] MEDS: cefTRIAXone\\ROCEPHIN 2 GM in Sodium Chloride 0.9% 100 ML IVPB SCH (08:22)
[2018-06-16] MEDS: Multivitamin W/ Minerals 1 TAB PO SCH (09:32)
[2018-06-16] MEDS: FLUoxetine HCl 20 MG CAP PO SCH (09:32)
[2018-06-16] MEDS: Aspirin 81 mg Enteric Coated Tablet PO SCH (09:32)
[2018-06-16] MEDS: Lisinopril 20 MG TAB PO SCH ×2 (09:32→21:18)
[2018-06-16] MEDS: Dronedarone HCl 400 MG TAB PO SCH ×2 (09:32→16:58)
[2018-06-16] MEDS: Oxymetazoline HCl 0.05% ( 15 ML ) NASAL SCH ×2 (09:33→21:19)
[2018-06-16] MEDS: Stress 600 With Zinc 1 TAB PO SCH (09:33)
[2018-06-16] MEDS: Fluticasone Propionate Nasal Spray 16 gm Bottle NASAL SCH ×2 (09:39→21:19)
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
--- NOTE | 2018-06-16 16:31 | PRG ---
DATE OF SERVICE: 06/16/2018 SUBJECTIVE: Ms. Brown has done well over the weekend except has developed a biliary leak, diagnosed by CAT scan, elevated LFTs. She underwent ERCP, sphincterotomy by Dr. Ordonez on 06/14/2018. Stent wa s placed, since the time, her liver function tests have improved. Her abdominal pain has almost reso lved completely. LABORATORY DATA: White count 10, hemoglobin 8.2, bilirubin 3.2, down from 3.9 yesterday and 5.8 the day before. AST and ALT are improving. OBJECTIVE: LUNGS: Clear to auscultation. CARDIAC: Regular rate and rhythm without murmur or gallop. ABDOMEN: Soft, nontender. ASSESSMENT AND PLAN: She is doing well. The patient is stable for discharge from a surgical standpo int tomorrow. We will restart her Eliquis.
[2018-06-16] MEDS: Apixaban 5 MG TAB PO SCH (21:19)
[2018-06-16] MEDS: Rosuvastatin 10 MG TAB PO SCH (21:19)
[2018-06-17 05:41] LABS: #Eosinphils 0.3 thou/uL (0.0-0.7); #Lymphocytes 1.1 thou/uL (1.20-3.40); #Neutrophils 7.1 thou/uL (1.40-6.50); %Basophils 0.2 % (0.0-1.0); %Eosinophils 2.9 % (0.0-10.0); %Lymphocytes 11.5 % (21.0-51.0); %Monocytes 10.1 % (0.0-10.0); %Neutrophils 75.2 % (42.0-75.0); Hemoglobin 8.2 g/dL (12.0-16.0); Mean Corpuscular HGB CONC 32.6 g/dL (32.0-36.0); Mean Corpuscular Hemoglobin 30.5 pg (27.0-31.0); Mean Corpuscular Volume 93.4 fL (78.0-98.0); Mean Platelet Volume 7.3 fL (7.4-10.4); Platelet Count 298 thou/uL (130-400); RBC Distribution Width 15.1 % (11.5-14.5); Red Blood Cell (RBC) Count 2.69 mill/uL (4.20-5.40); White Blood Cell (WBC) Count 9.4 thou/uL (4.8-10.8)
[2018-06-17] MEDS: Levothyroxine Sodium 50 MCG TAB PO SCH (05:58)
[2018-06-17 06:20] LABS: ALT (SGPT) 127 U/L (8-55); AST (SGOT) 106 U/L (5-34); Albumin 3.1 g/dL (3.4-4.8); Alkaline Phosphatase 217 U/L (40-150); Anion Gap 11 mmol/L (10-20); BUN (Urea Nitrogen) 17 mg/dL (9.8-20.1); Bilirubin, Total 2.4 mg/dL (0.2-1.2); Calc. Creatinine Clearance 122 mL/min (70-130); Calcium 9.3 mg/dL (7.8-10.44); Carbon Dioxide 26 mmol/L (23-31); Chloride 102 mmol/L (98-107); Estimated GFR-MDRD Greater than 90; Globulin 3.2 g/dL (2.4-3.5); Glucose 109 mg/dL (80-115); Potassium 3.6 mmol/L (3.5-5.1); Protein, Total 6.3 g/dL (6.0-8.3); Sodium 135 mmol/L (136-145)
[2018-06-17 07:40] VITALS: TEMP 98.8
[2018-06-17] MEDS: Lisinopril 20 MG TAB PO SCH (09:23)
[2018-06-17] MEDS: Apixaban 5 MG TAB PO SCH (09:23)
[2018-06-17] MEDS: Aspirin 81 mg Enteric Coated Tablet PO SCH (09:23)
[2018-06-17] MEDS: FLUoxetine HCl 20 MG CAP PO SCH (09:23)
[2018-06-17] MEDS: Multivitamin W/ Minerals 1 TAB PO SCH (09:23)
[2018-06-17] MEDS: Dronedarone HCl 400 MG TAB PO SCH (09:23)
[2018-06-17 09:24] VITALS: BP 139/65
[2018-06-17] MEDS: Oxymetazoline HCl 0.05% ( 15 ML ) NASAL SCH (09:24)
[2018-06-17] MEDS: cefTRIAXone\\ROCEPHIN 2 GM in Sodium Chloride 0.9% 100 ML IVPB SCH (09:24)
[2018-06-17] MEDS: Fluticasone Propionate Nasal Spray 16 gm Bottle NASAL SCH (09:24)
[2018-06-17] MEDS: Stress 600 With Zinc 1 TAB PO SCH (09:37)
--- NOTE | 2018-06-17 09:58 | DIS ---
DATE OF ADMISSION: 06/10/2018 DATE OF DISCHARGE: 06/17/2018 PRIMARY CARE PHYSICIAN: Belen Wayne M.D. DISCHARGE DISPOSITION: Home. PRIMARY DISCHARGE DIAGNOSES: 1. Acute cholecystitis, status post laparoscopic cholecystectomy. 2. Postoperative ileus, resolved. 3. Postoperative bile leak, resolved status post endoscopic retrograde cholangiopancreatography. 4. Abnormal liver function tests due to acute cholecystitis. 5. Staphylococcus aureus bacteremia. 6. Acute sinusitis, resolved. SECONDARY DISCHARGE DIAGNOSES: Paroxysmal atrial fibrillation, obesity with BMI of 33, hypothyroidis m, history of aortic valve replacement. PRIMARY PROCEDURE/OPERATION: 1. Laparoscopic cholecystectomy by Dr. Roman. 2. ERCP by Dr. Ordonez. RADIOLOGICAL INVESTIGATION: Abdomen ultrasound consistent with acute cholecystitis. Chest x-ray unr emarkable. Abdomen MRI consistent with cholelithiasis without choledocholithiasis, small pseudocyst in the pancreas. Cholangiogram operative was unremarkable. Echocardiography showed normal EF. Abdo men and pelvis CT scan showed biliary leak after surgery. SIGNIFICANT LABORATORY DATA: WBC 9.4, hemoglobin 8.2, platelet 298,000. INR 1.4. Sodium 135, potas sium 3.6, BUN 17, creatinine 0.63, bilirubin 2.4, AST 106, ALT 127, alkaline phosphate 217, albumin 3 .1. Blood culture negative. One blood culture was positive for Staph aureus. DISCHARGE MEDICATIONS: Ciprofloxacin 500 mg p.o. b.i.d. for 10 days, tramadol 50 mg q.6 hourly p.r.n . for pain, Prozac 20 mg p.o. daily, Synthroid 50 mcg p.o. daily, Toprol XL 100 mg p.o. daily, multiv itamin 1 tablet p.o. daily, Crestor 10 mg p.o. at bedtime, Eliquis 5 mg p.o. b.i.d., vitamin B comple x 1 tablet daily, aspirin 81 mg p.o. daily, Multaq 400 mg p.o. b.i.d. CONTRAINDICATIONS: None. CODE STATUS: Full code. INPATIENT CONSULTANTS: Dr. Roman was consulted while in hospital. Dr. Juarez was followin g while in hospital. TEST RESULTS PENDING ON DISCHARGE: None. ALLERGIES: CODEINE. DISCHARGE PLAN: Post hospital, the patient will follow up with Dr. Roman in 1 or 2 weeks. The lili ent will make appointment with primary care physician in 1 week. HOSPITAL COURSE: A 67-year-old female with above-mentioned medical problem who was admitted on 06/[address] Mitchell. On admission, the patient presented with right upper quadrant pain and fever. Her clinical presentation was consistent with acute cholecystitis. She had abnormal LFTs. Initially , abdominal ultrasound showed cholelithiasis with gallbladder wall thickening that was also confirmed with abdomen MRI. The patient's abdomen MRI also showed pancreatic pseudocyst and that is why we ad vised this patient to follow up with GI for endoscopic ultrasound evaluation if needed as an outpatie nt basis to rule out any other pathology. Dr. Roman did laparoscopic cholecystectomy on 06/11/2018 and operative cholangiography was without a ny filling defect. After surgery, the patient continued to have abdominal pain and she had ileus and that is why she req uired NG tube placement and n.p.o. Her bilirubin kept going up as well as her LFT was fluctuating an d that is why we did CT of the abdomen and pelvis, which showed biliary leak and subsequently GI did ERCP with stenting. After that, bilirubin started improving. The patient was also clinically improving. She had physical weakness, but that was improved over mikki e with physical therapy while in hospital. The patient did not want to go to any kind of rehabilitat ion or correction home placement, but rather she wanted to go home. We advised her to follow up with GI and Dr. Roman as instructed. Today, the patient is seen and examined at bedside. Her vital signs are stable. I have reviewed all review of systems with her and negative. PHYSICAL EXAMINATION: VITAL SIGNS: Currently, temperature 98.8, pulse 66, respiratory rate 16, saturation 95% on room air, blood pressure 147/60, weight 191 pounds. GENERAL: The patient is currently alert, awake, in no obvious acute distress. HEAD: Normocephalic, atraumatic. EYES: Pupils round and reactive to light. Extraocular muscles are intact. ENT: Oropharynx within normal limits. Moist mucous membranes. No oral lesions, no pharyngeal eryth aleshia, no exudate. NECK: Supple. No JVD, no thyromegaly, no carotid bruit. LUNGS: Clear to auscultation without any rhonchi or rales. CARDIAC: S1, S2 regular without any murmur. ABDOMEN: Soft and benign without any tenderness. Surgical site is clean and healthy. EXTREMITIES: No edema. NEUROLOGIC: Nonfocal examination. During this hospital course, Cardiology was also following for her underlying history of atrial fibri llation. Her echocardiography was unremarkable and her cardiac status was stable while in hospital.
== END 2018-06-17 10:58 | disposition home or self-care (01) | DRG 418 ==
LOC: ERS 22:52 → 2SE 06-10 06:01
PROVIDERS: ADMIT Internal Medicine; ATTEND Internal Medicine
PROC: 0FT44ZZ Resection of Gallbladder, Percutaneous Endoscopic Approach (ICD-10-PCS; principal; 2018-06-11)
PROC: BF101ZZ Fluoroscopy of Bile Ducts using Low Osmolar Contrast (ICD-10-PCS; 2018-06-11)
PROC: 0F788DZ Dilation of Cystic Duct with Intraluminal Device, Via Natural or Artificial Opening Endoscopic (ICD-10-PCS; 2018-06-14)
DX: K81.0 Acute cholecystitis (principal); K86.2 Cyst of pancreas; K91.89 Other postprocedural complications and disorders of digestive system; K91.30 Postprocedural intestinal obstruction, unspecified as to partial versus complete; Z88.5 Allergy status to narcotic agent; E03.9 Hypothyroidism, unspecified; I10 Essential (primary) hypertension; Z79.01 Long term (current) use of anticoagulants; Z95.2 Presence of prosthetic heart valve; Z79.82 Long term (current) use of aspirin; K81.1 Chronic cholecystitis; I48.0 Paroxysmal atrial fibrillation; E11.9 Type 2 diabetes mellitus without complications; E78.5 Hyperlipidemia, unspecified; J01.90 Acute sinusitis, unspecified; E66.9 Obesity, unspecified; Z68.33 Body mass index [BMI] 33.0-33.9, adult; B95.61 Methicillin susceptible Staphylococcus aureus infection as the cause of diseases classified elsewhere
CPT/HCPCS: 36415; 47532; 71046; 74018; 74177; 74181; 76705; 80053; 80307; 82553; 83605; 83690; 84484; 85025; 85610; 85730; 87040; 87077; 87149; 87186; 88304; 93005; 93010; 93306; 93798; 96365; 96375; A4216; C9113; G8978-GP-CL; G8979-GP-CJ; G8987-GO-CK; G8988-GO-CI; J0131; J0360; J0670; J0696; J1610; J1885; J1940; J2001; J2250; J2270; J2405; J2543; J2550; J2704; J3010; J3370; J7050; Q9961

== ENCOUNTER 2018-09-17 10:45 | Day surgery (SDC) | payer MEDICARE, BC ==
[2018-09-16 13:31] VITALS: BMI 31.8
[2018-09-17] MEDS ORDERED: Fentanyl 100 MCG/2 ML VIAL ONE (11:12)
[2018-09-17] MEDS ORDERED: Iothalamate Meglumine 60% 50 ML VIAL FS ONE (11:59)
[2018-09-17] MEDS ORDERED: Indomethacin 50 MG SUPP ONE (11:59)
--- NOTE | 2018-09-17 14:53 | OP ---
DATE OF PROCEDURE: 09/17/2018 PROCEDURE PERFORMED: Endoscopic retrograde cholangiopancreatography with stent extraction. INDICATION FOR PROCEDURE: Prior biliary leak status post cholecystectomy. DESCRIPTION OF PROCEDURE: After the risks and benefits of the procedure were explained to the patient including risks of bleeding, infection, perforation, reactions to anesthesia, aspiration, pancreatitis, and/or pain, informed consent was obtained. The patient was then taken to the endoscopy suite, where general anesthesia was administered with endotracheal tube intubation. Once the patient was sedated and intubated, she was maneuvered into the prone position in preparation for the ERCP using the standard duodenoscope. It was introduced into the mouth with intubation of the esophagus, stomach, and proximal small intestine with the findings listed below. The patient tolerated the procedure well with no immediate perioperative complications. Upon completion of the procedure, all equipment was removed from the patient and the patient was transferred to [facility] in satisfactory condition. FINDINGS: EGD findings: Of the limited views obtained of the esophagus, stomach, and proximal small intestine, there were no abnormalities noted in each of these respective regions. There was no evidence of erosions, ulcerations, mass lesions, or active/recent bleeding. ERCP findings: The duodenoscope was maneuvered into the second portion of the duodenum with easy identification of the ampulla, which did show the presence of a biliary stent emanating from the ampulla itself. Once in position, using a snare, the snare was positioned around the external flange of the biliary stent and retrieved through the duodenoscope. Once the stent was retrieved, a 9 to 12 mm balloon catheter was advanced through the duodenoscope and successfully cannulated into the ampulla. The balloon was inflated to approximately 12 mm with occlusion cholangiogram performed at that time. The occlusion cholangiogram was performed initially in the proximal portion of the common hepatic duct with good visualization of the intrahepatic tree. There was no evidence of extravasation or leak within the intrahepatics as the balloon was withdrawn through the common bile duct. Additional contrast was injected with no additional leaks or extravasation of the contrast despite occlusion cholangiogram. The balloon was then removed from the ampulla with good drainage of contrast seen, at which point the procedure was terminated with all equipment removed from the patient. IMPRESSION: Successful endoscopic retrograde cholangiopancreatography with biliary stent extraction and no evidence of biliary leak on occlusion cholangiogram. RECOMMENDATIONS: 1. Given no evidence of biliary leak on endoscopic retrograde cholangiopancreatography today, no further endoscopic management is indicated for this condition. 2. Would recommend a repeat CT of the abdomen and pelvis for further characterization of the pancreatic lesion seen on the imaging approximately 2 to 3 months ago. 3. Would recommend colonoscopy for screening for malignant neoplasms of the colon. We will schedule this as an outpatient. 4. The patient to follow up in the GI clinic as needed based on the results of the CT scan. Job ID: [id number]
--- NOTE | 2018-09-17 17:01 | RAD ---
ERCP 09/17/18 HISTORY: Pain. COMPARISON: None. FINDINGS: Two spot fluoroscopic images were obtained. A balloon sweep was performed. Contrast is seen extendin g into the proximal small bowel. No intrahepatic biliary dilatation. IMPRESSION: Fluoroscopy for surgical use. POS: TPC
== END 2018-09-17 14:27 | disposition home or self-care (01) ==
LOC: SDC 10:45
PROVIDERS: ATTEND Internal Medicine
PROC: 0FPB8DZ Removal of Intraluminal Device from Hepatobiliary Duct, Via Natural or Artificial Opening Endoscopic (ICD-10-PCS; principal; 2018-09-17)
DX: Z46.59 Encounter for fitting and adjustment of other gastrointestinal appliance and device (principal); K21.9 Gastro-esophageal reflux disease without esophagitis; D64.9 Anemia, unspecified; F41.9 Anxiety disorder, unspecified; I48.91 Unspecified atrial fibrillation; I10 Essential (primary) hypertension; E03.9 Hypothyroidism, unspecified; Z79.01 Long term (current) use of anticoagulants; Z79.82 Long term (current) use of aspirin; Z79.899 Other long term (current) drug therapy; Z88.5 Allergy status to narcotic agent; Z95.2 Presence of prosthetic heart valve; Z98.890 Other specified postprocedural states
CPT/HCPCS: 74330; J3010; Q9961

== ENCOUNTER 2019-01-24 08:29 | Outpatient (CLI) | payer MEDICARE, BC ==
--- NOTE | 2019-01-24 09:47 | CT ---
CT ABDOMEN WITH AND WITHOUT IV CONTRAST: HISTORY: Abnormal radiographic imaging of pancreas, post cholecystectomy bile leakage. COMPARISON: 06/14/2018. CORRELATION: MRI abdomen 06/10/2018. FINDINGS: The lung bases are unremarkable. Postop changes of aortic valve replacement are seen. The patient i s post cholecystectomy. There is a focal 1 cm vascular blush noted in the subcapsular aspect of the right lobe of the liver m easuring about 1 cm. This was not seen on the previous study. There are tiny calcifications in the right adrenal gland. The spleen, left adrenal gland, and kidney s are normal. There is a 9 mm low-density lesion in the head of the pancreas which is stable compared to the MRI of 06/10/2018. No abnormal biliary or pancreatic ductal dilatation is seen. No free air, free fluid, or lymphadenopathy is seen in the abdomen. There is no evidence of aneurysm al dilatation of the abdominal aorta. There are degenerative changes in the spine. A small hiatal h ernia is present. IMPRESSION: 1. Stable 9 mm cyst in the head of the pancreas since 06/10/2018. 2. Hypervascular focus in the subcapsular region of the right lobe of the liver. Differential diagn osis includes a flash-filling hemangioma, vascular variant, or malignancy (primary or secondary). A workup for primary malignancy and a 6-month followup CT scan (with and without IV contrast) would be helpful. POS: TPC
[2019-01-24] MEDS ORDERED: Iopamidol 370 76% 100 ML VIAL ONE (15:00)
== END 2019-01-24 08:30 | disposition home or self-care (01) ==
LOC: BICCT 08:29
PROVIDERS: ATTEND Internal Medicine
DX: K91.89 Other postprocedural complications and disorders of digestive system (principal); R93.3 Abnormal findings on diagnostic imaging of other parts of digestive tract; K86.2 Cyst of pancreas; R93.2 Abnormal findings on diagnostic imaging of liver and biliary tract
CPT/HCPCS: 72193; 74170; Q9967

== ENCOUNTER 2019-08-17 08:09 | Outpatient (CLI) | payer MEDICARE, BC ==
--- NOTE | 2019-08-17 10:05 | CT ---
CT of the abdomen with and without contrast: 08/17/2019 COMPARISON: 01/24/2019 and 06/14/2018 HISTORY: Reevaluate hepatic lesion TECHNIQUE: Axial CT imaging at 5 mm intervals through the abdomen with oral contrast, with and withou t IV contrast, using a hepatic mass protocol. Coronal and sagittal reformatted imaging obtained. FINDINGS: The imaged lung bases are unremarkable. There is evidence of prior mechanical valve procedu re at the level of the aortic valve. The arterial dominant phase demonstrates no focal area of abnormal density within the hepatic parench yma. The area of peripheral hyperenhancement involving the lateral aspect of the right lobe of the liver seen on the 01/24/2019 examination is not seen on this arterial dominant phase. In addition, the portal venous phase imaging demonstrates no focal area of abnormality within the hepatic parenchyma. This suggests that the finding on prior CT examination is of doubtful clinical significan ce and is likely on the basis of a vascular phenomenon. Gallbladder is surgically absent. The spleen, pancreas, adrenal glands, and kidneys demonstrate no acute findings. There is a small fat-containing lesion within the adrenal gland on the right suggesting a small adren al myelolipoma, measuring in the 7 mm range. Partially imaged bowel demonstrates no acute findings. Vascular structures appear patent. No lymphade nopathy is seen. Review of the osseous structures demonstrate no acute findings. IMPRESSION: The area of abnormality within the peripheral aspect of the right lobe of the liver seen on the prior examination is not visualized on this examination suggesting that it represents a vascular phenomenon of doubtful clinical significance. No discrete hepatic abnormality is evident on this examination.
[2019-08-17] MEDS ORDERED: Iopamidol-370 76% 500 ML 1 ML ONE (13:46)
== END 2019-08-17 08:10 | disposition home or self-care (01) ==
LOC: BICCT 08:09
PROVIDERS: ATTEND Internal Medicine
DX: R93.3 Abnormal findings on diagnostic imaging of other parts of digestive tract (principal)
CPT/HCPCS: 74170; 82565; Q9967

== ENCOUNTER 2022-05-08 08:02 | Outpatient (CLI) | payer MEDICARE, BC | END 2022-05-08 08:03 | disposition home or self-care (01) | LOC: MRI 08:02 | PROVIDERS: ATTEND Internal Medicine | DX: K52.9 Noninfective gastroenteritis and colitis, unspecified (principal); R93.3 Abnormal findings on diagnostic imaging of other parts of digestive tract; K86.2 Cyst of pancreas | CPT/HCPCS: 74183 ==

== ENCOUNTER 2022-09-24 12:49 | Outpatient (CLI) | payer MEDICARE, BC ==
[2022-09-24 13:37] LABS: Mean Corpuscular HGB CONC 32.9 g/dL (32.0-36.0); Mean Corpuscular Hemoglobin 31.4 pg (27.0-33.0); Mean Corpuscular Volume 95.5 fl (81.6-98.3); Mean Platelet Volume 9.9 fl (7.4-10.4); Platelet Count 323 10x3/uL (150-450); RBC Distribution Width 13.4 % (11.5-14.5); Red Blood Cell (RBC) Count 3.82 10x6/uL (3.90-5.03); White Blood Cell (WBC) Count 7.5 10x3/uL (3.5-10.5)
[2022-09-24 14:01] LABS: Anion Gap 14 mmol/L (10-20); BUN (Urea Nitrogen) 17 mg/dL (9.8-20.1); Calc. Creatinine Clearance 0 mL/min (70-130); Calcium 9.7 mg/dL (7.8-10.44); Carbon Dioxide 26 mmol/L (23-31); Chloride 105 mmol/L (98-107); Estimated GFR 77; Glucose 150 mg/dL (80-115); Potassium 3.7 mmol/L (3.5-5.1); Sodium 141 mmol/L (136-145)
== END 2022-09-24 12:50 | disposition home or self-care (01) ==
LOC: LABBT 12:49
PROVIDERS: ATTEND Neurological Surgery
DX: Z01.812 Encounter for preprocedural laboratory examination (principal); M48.061 Spinal stenosis, lumbar region without neurogenic claudication
CPT/HCPCS: 80048; 85027

== ENCOUNTER 2022-09-25 06:11 | Day surgery (SDC) | payer MEDICARE, BC ==
[2022-09-23 15:24] VITALS: BMI 34.5
[2022-09-25] MEDS ORDERED: Bupivacaine HCl 0.5%/Epinephrine 1:200,000/PF 30 ml Vial ONE (08:44)
[2022-09-25] MEDS ORDERED: Thrombin 5000 UNITS/5 ML VIAL ONE (08:44)
[2022-09-25] MEDS ORDERED: Fentanyl 250 MCG/5 ML VIAL ONE (08:49)
[2022-09-25] MEDS ORDERED: Dexmedetomidine 200 MCG/2 ML VIAL ONE (08:49)
[2022-09-25] MEDS ORDERED: CEFAZOLIN 2 GM VIAL ONE ×2 (08:57→13:15)
[2022-09-25] MEDS ORDERED: Sodium Chloride 0.9% 100 ML ONE ×2 (08:57→13:15)
[2022-09-25] MEDS ORDERED: MINERAL OIL/WHITE PETROLATUM 3.5 GM TUBE ONE (09:03)
[2022-09-25] MEDS ORDERED: SUGAMMADEX SODIUM 200 MG/2 ML VIAL ONE (10:20)
[2022-09-25] MEDS ORDERED: Fentanyl 100 MCG/2 ML VIAL ONE ×2 (10:47→11:19)
[2022-09-25] MEDS ORDERED: HYDROmorphone 0.5 MG/0.5 ML SYRINGE ONE (12:04)
[2022-09-25] MEDS ORDERED: Ondansetron PF 4 MG/2 ML Vial ONE (12:28)
[2022-09-25] MEDS ORDERED: HYDROcodone/Acetaminophen 5/325 mg Tablet ONE (15:47)
[2022-09-25] MEDS ORDERED: traMADol HCl 50 MG TAB ONE (15:58)
[2022-09-25] MEDS ORDERED: Mag-Al 1200 mg/1200 mg/30 ML UDCUP PO PRN (16:10)
[2022-09-25] MEDS ORDERED: Bisacodyl 10 MG SUPP PR PRN (16:11)
== END 2022-09-25 18:40 | disposition home or self-care (01) ==
LOC: SDC 06:11
PROVIDERS: ATTEND Neurological Surgery
PROC: 01NB0ZZ Release Lumbar Nerve, Open Approach (ICD-10-PCS; principal; 2022-09-25)
DX: M48.062 Spinal stenosis, lumbar region with neurogenic claudication (principal); I48.0 Paroxysmal atrial fibrillation; G89.29 Other chronic pain; E11.9 Type 2 diabetes mellitus without complications; I10 Essential (primary) hypertension; E78.5 Hyperlipidemia, unspecified; E03.9 Hypothyroidism, unspecified; Z79.01 Long term (current) use of anticoagulants; Z79.890 Hormone replacement therapy; Z79.899 Other long term (current) drug therapy; Z88.5 Allergy status to narcotic agent; Z95.2 Presence of prosthetic heart valve
CPT/HCPCS: 63047; C1713; J1170; J2405; J3010; J3490

== ENCOUNTER 2023-03-18 12:26 | Outpatient (CLI) | payer MEDICARE, BC | END 2023-03-18 12:27 | disposition home or self-care (01) | LOC: MRI 12:26 | PROVIDERS: ATTEND Internal Medicine | DX: K52.9 Noninfective gastroenteritis and colitis, unspecified (principal); R93.3 Abnormal findings on diagnostic imaging of other parts of digestive tract; K86.2 Cyst of pancreas | CPT/HCPCS: 74183 ==

== ENCOUNTER 2023-12-31 13:39 | Outpatient (CLI) | payer MEDICARE | END 2023-12-31 13:40 | disposition home or self-care (01) | LOC: BICRAD 13:39 | PROVIDERS: ATTEND Neurological Surgery | DX: M47.22 Other spondylosis with radiculopathy, cervical region (principal); M43.12 Spondylolisthesis, cervical region | CPT/HCPCS: 72040 ==